=== PATIENT | male | born 1990 | race Caucasian/White ===

== ENCOUNTER 2019-12-31 14:49 | Emergency (ER) | payer BC ==
[~2019-12-31] VITALS: Ht 182 cm; Wt 81.0 kg
[~2019-12-31 14:49] MED LIST: HYDR25CA PO; ONDA8TAB13 PO
--- NOTE | 2019-12-31 16:14 | ED Abdominal Pain ---
General Chief Complaint: Abdominal/GI Problems Stated Complaint: GI PROBLEMS Nursing Triage Note: PT ARRIVES TO ER WITH C/O SEVERE ABDOMINAL PAIN EVER SINCE BEING DIAGNOSED WITH COVID 19 ON NOVEMBER 22 2019. PT HAS BEEN VOMITTING ALMOST DAILY SINCE Sepsis Screen: No Definite Risk Source of Information: Patient Exam Limitations: No Limitations History of Present Illness Date Seen by Provider: Dec 31, 2019 Time Seen by Provider: 16:11 Initial Comments To ER with c/o RLQ pain and dysuria since having COVID in November 21. He never had respiratory symptoms, only had GI distress. Timing/Duration: Other (one month) Severity/Quality: Moderate Location: RLQ, Generalized Abdomen Radiation: No Radiation Activities at Onset: None Associated Symptoms: Denies Symptoms Allergies and Home Medications Allergies Coded Allergies: No Known Drug Allergies (Unverified , 11/09/14) Home Medications Hydroxyzine Pamoate 25 Mg Capsule, 25 MG PO Q6H PRN for ANXIETY Prescribed by: RADHA SEWELL on 11/09/142147 Ondansetron 8 Mg Tab.rapdis, 8 MG PO Q6H PRN for NAUSEA/VOMITING Prescribed by: RADHA SEWELL on 11/09/142147 Patient Home Medication List Home Medication List Reviewed: Yes Review of Systems Review of Systems Constitutional: see HPI EENTM: No Symptoms Reported Respiratory: No Symptoms Reported Cardiovascular: No Symptoms Reported Gastrointestinal: See HPI, Abdominal Pain, Nausea Genitourinary: No Symptoms Reported Musculoskeletal: no symptoms reported Skin: no symptoms reported Psychiatric/Neurological: No Symptoms Reported Endocrine: No Symptoms Reported Hematologic/Lymphatic: No Symptoms Reported Past Tznqtcy-Asrjgc-Daycfi Hx Patient Social History Recent Foreign Travel: No Contact w/Someone Who Travel: No Recent Infectious Disease Expo: No Past Medical History Tonsillectomy Asthma Reproductive Disorders: No Sexually Transmitted Disease: No Anxiety Family Medical History No Pertinent Family Hx Physical Exam Vital Signs Vital Signs - First Documented 12/31/19 15:48 Temp 36.4 Pulse 90 Resp 17 B/P (MAP) 151/122 (132) Pulse Ox 100 O2 Delivery Room Air Capillary Refill : Less Than 3 Seconds Height/Weight/BMI Height: 5'11" Weight: 165lbs. oz. 74.039856jp; 24.00 BMI Method:Stated General Appearance: WD/WN, no apparent distress Respiratory: normal breath sounds, no respiratory distress, no accessory muscle use Cardiovascular: regular rate, rhythm, no murmur Gastrointestinal: normal bowel sounds, soft, tenderness Extremities: normal range of motion, non-tender Neurologic/Psychiatric: alert, normal mood/affect, oriented x 3 Skin: normal color, warm/dry, other (Track little of the antecubital fossa and upper arms bilaterally) Progress/Results/Core Measures Results/Orders Lab Results Laboratory Tests Test 12/31/19 16:05 12/31/19 16:35 12/31/19 17:17 Range/Units White Blood Count 13.2 H 4.3-11.0 10^3/uL Red Blood Count 4.43 4.30-5.52 10^6/uL Hemoglobin 14.7 13.3-17.7 g/dL Hematocrit 42 40-54 % Mean Corpuscular Volume 95 80-99 fL Mean Corpuscular Hemoglobin 33 25-34 pg Mean Corpuscular Hemoglobin Concent 35 32-36 g/dL Red Cell Distribution Width 12.0 10.0-14.5 % Platelet Count 563 H 130-400 10^3/uL Mean Platelet Volume 9.3 9.0-12.2 fL Immature Granulocyte % (Auto) 1 % Neutrophils (%) (Auto) 68 42-75 % Lymphocytes (%) (Auto) 19 12-44 % Monocytes (%) (Auto) 10 0-12 % Eosinophils (%) (Auto) 1 0-10 % Basophils (%) (Auto) 1 0-10 % Neutrophils # (Auto) 9.0 H 1.8-7.8 10^3/uL Lymphocytes # (Auto) 2.6 1.0-4.0 10^3/uL Monocytes # (Auto) 1.3 H 0.0-1.0 10^3/uL Eosinophils # (Auto) 0.2 0.0-0.3 10^3/uL Basophils # (Auto) 0.1 0.0-0.1 10^3/uL Immature Granulocyte # (Auto) 0.1 0.0-0.1 10^3/uL Sodium Level 136 135-145 MMOL/L Potassium Level 3.0 L 3.6-5.0 MMOL/L Chloride Level 100 98-107 MMOL/L Carbon Dioxide Level 23 21-32 MMOL/L Anion Gap 13 5-14 MMOL/L Blood Urea Nitrogen 5 L 7-18 MG/DL Creatinine 0.71 0.60-1.30 MG/DL Estimat Glomerular Filtration Rate > 60 BUN/Creatinine Ratio 7 Glucose Level 89 70-105 MG/DL Calcium Level 8.5 8.5-10.1 MG/DL Corrected Calcium 8.7 8.5-10.1 MG/DL Total Bilirubin 0.5 0.1-1.0 MG/DL Aspartate Amino Transf (AST/SGOT) 28 5-34 U/L Alanine Aminotransferase (ALT/SGPT) 27 0-55 U/L Alkaline Phosphatase 74 40-136 U/L Total Protein 6.7 6.4-8.2 GM/DL Albumin 3.7 3.2-4.5 GM/DL Lipase 191 H 8-78 U/L Urine Color YELLOW Urine Clarity CLEAR Urine pH 7.0 5-9 Urine Specific Fosters 1.020 1.016-1.022 Urine Protein 1+ H NEGATIVE Urine Glucose (UA) NEGATIVE NEGATIVE Urine Ketones TRACE H NEGATIVE Urine Nitrite NEGATIVE NEGATIVE Urine Bilirubin 1+ H NEGATIVE Urine Urobilinogen 1.0 < = 1.0 MG/DL Urine Leukocyte Esterase NEGATIVE NEGATIVE Urine RBC (Auto) NEGATIVE NEGATIVE Urine RBC NONE /HPF Urine WBC 0-2 /HPF Urine Crystals NONE /LPF Urine Bacteria TRACE /HPF Urine Casts NONE /LPF Urine Mucus LARGE H /LPF Urine Culture Indicated NO Urine Opiates Screen POSITIVE H NEGATIVE Urine Oxycodone Screen NEGATIVE NEGATIVE Urine Methadone Screen NEGATIVE NEGATIVE Urine Propoxyphene Screen NEGATIVE NEGATIVE Urine Barbiturates Screen NEGATIVE NEGATIVE Ur Tricyclic Antidepressants Screen NEGATIVE NEGATIVE Urine Phencyclidine Screen NEGATIVE NEGATIVE Urine Amphetamines Screen NEGATIVE NEGATIVE Urine Methamphetamines Screen NEGATIVE NEGATIVE Urine Benzodiazepines Screen NEGATIVE NEGATIVE Urine Cocaine Screen NEGATIVE NEGATIVE Urine Cannabinoids Screen POSITIVE H NEGATIVE Coronavirus 2019 (BHANU) Negative Negative My Orders Orders - JON ALLEN BRANCH SERVICE SPECIALIST Cbc With Automated Diff (12/31/19 15:59) Comprehensive Metabolic Panel (12/31/19 15:59) Lipase (12/31/19 15:59) Ua Culture If Indicated (12/31/19 15:59) Drug Screen Stat (Urine) (12/31/19 15:59) Ed Iv/Invasive Line Start (12/31/19 15:59) Ketorolac Injection (Toradol Injection) (12/31/19 16:15) Ns Iv 1000 Ml (Sodium Chloride 0.9%) (12/31/19 16:15) Ondansetron Injection (Zofran Injectio (12/31/19 16:15) Iohexol Injection (Omnipaque 350 Mg/Ml 1 (12/31/19 16:30) Received Contrast (Hold Metformin- Contr (12/31/19 16:30) Ns (Ivpb) (Sodium Chloride 0.9% Ivpb Bag (12/31/19 16:30) Ct Abd/Pelvis Wo(Kidney Stone) (12/31/19 16:25) Fentanyl Injection (Sublimaze Injection (12/31/19 17:00) Covid 19 Inhouse Test (12/31/19 17:14) Ondansetron Injection (Zofran Injectio (12/31/19 18:00) Medications Given in ED Current Medications Medications Dose Ordered Sig/Stoney Route Start Time Stop Time Status Last Admin Dose Admin Fentanyl Citrate 50 mcg ONCE ONCE IVP 12/31/19 17:00 12/31/19 17:01 DC 12/31/19 17:16 50 MCG Ketorolac Tromethamine 15 mg ONCE ONCE IVP 12/31/19 16:15 12/31/19 16:16 DC 12/31/19 16:32 15 MG Ondansetron HCl 4 mg ONCE ONCE IVP 12/31/19 16:15 12/31/19 16:16 DC 12/31/19 16:32 4 MG Vital Signs/I&O 12/31/19 15:48 Temp 36.4 Pulse 90 Resp 17 B/P (MAP) 151/122 (132) Pulse Ox 100 O2 Delivery Room Air Blood Pressure Mean: 132 Diagnostic Imaging Diagonstic Imaging: CT Comments NAME: DIONNE NORMAN Destiney [facility] REC#: [id number] PT STATUS: REG ER : 1990 PHYSICIAN: JON ALLEN BRANCH SERVICE SPECIALIST ADMIT DATE: 12/31/19/ER Draft Date of Exam:12/31/19 CT ABD/PELVIS WO(KIDNEY STONE) INDICATION: Right lower quadrant pain with nausea and vomiting. TECHNIQUE: Multiple contiguous axial images were obtained through the abdomen and pelvis without the use of intravenous contrast. Auto Exposure Controls were utilized during the CT exam to meet ALARA standards for radiation dose reduction. COMPARISON: There is no prior CT of the abdomen and pelvis for comparison. FINDINGS: The visualized portions of the lung bases appear clear. There were no pleural fluid collections. There is no free intraperitoneal air. The liver shows low-density change compatible with fatty infiltration. The gallbladder appears unremarkable. There is a normal appearance of the spleen The pancreas is abnormal with a large apparent fluid collection in the pancreatic tail, which may be a large pseudocyst. This collection measured about 12.8 x 10.9 cm. There is an additional fluid collection in the left iliacus muscle and left side of the retroperitoneum. The left-sided retroperitoneal collection measured about 7.2 x 5.6 cm in the axial plane. There is no pelvic mass or adenopathy. The appendix appears normal. There is no sign of bowel obstruction. IMPRESSION: Large fluid density in the region of the pancreatic tail suspicious for a large pseudocyst. There is some peripancreatic fat stranding. A follow-up CT with IV contrast would be helpful to further characterize this abnormality. There is an additional fluid collection in the left side of the retroperitoneum extending into the left iliacus muscle. Dictated on workstation # [id number] Dict: 12/31/19 1637 Trans: 12/31/19 1644 [facility] [id number] Interpreted by: JACKSON MILLER MD Electronically signed by: Departure Communication (Admissions) 1701-after further discussion he reports that he was a daily drinker prior to November 21 when he came down with Covid at which point he stopped alcohol use along with IV drug use. I would suspect this was the cause of his pancreatitis/pseudocyst. He is quite tender diffusely on abdominal palpation though his lipase is minimally elevated.Spoke with Dr Kwon from surgery here, recommends transfer to facility with GI and IR services for possible endoscopic US drainage or IR drainage. 1720-Spoke with resident for Dr Pabon at [facility], accepts pt in transfer. Pt agrees to go. Impression Primary Impression: Pancreatic pseudocyst Additional Impression: Nausea & vomiting Qualified Codes: R11.2 - Nausea with vomiting, unspecified Disposition: HOME, SELF-CARE Condition: Stable Transfer Transfer Reason: Exceeds level of care Time Spoke to Accepting Phy: 17:05 Departure-Patient Inst. Referrals: NO,LOCAL PHYSICIAN (PCP/Family) Primary Care Physician JON ALLEN BRANCH SERVICE SPECIALIST Dec 31, 2019 16:14
[2019-12-31] MEDS ORDERED: KETOROLAC 30 MG/ML VIAL IVP ONE (16:15)
[2019-12-31] MEDS ORDERED: ONDANSETRON 4 MG/2 ML (SDV) Z0FRAN IVP ONE ×2 (16:15→18:00)
[2019-12-31] MEDS ORDERED: NS IV 1000 ML 1,000 ML IV SCH (16:15)
[2019-12-31 16:21] LABS: BASOPHILS # (AUTO) 0.1 10^3/uL (0.0-0.1); BASOPHILS % (AUTO) 1 % (0-10); EOSINOPHILS # (AUTO) 0.2 10^3/uL (0.0-0.3); EOSINOPHILS % (AUTO) 1 % (0-10); HEMATOCRIT 42 % (40-54); HEMOGLOBIN 14.7 g/dL (13.3-17.7); LYMPHOCYTES # (AUTO) 2.6 10^3/uL (1.0-4.0); LYMPHOCYTES % (AUTO) 19 % (12-44); MEAN CORPUSCULAR HEMOGLOBIN 33 pg (25-34); MEAN CORPUSCULAR HGB CONC 35 g/dL (32-36); MEAN CORPUSCULAR VOLUME 95 fL (80-99); MEAN PLATELET VOLUME 9.3 fL (9.0-12.2); MONOCYTES # (AUTO) 1.3 10^3/uL (0.0-1.0); MONOCYTES % (AUTO) 10 % (0-12); NEUTROPHILS % (AUTO) 68 % (42-75); PLATELET COUNT 563 10^3/uL (130-400); WHITE BLOOD COUNT 13.2 10^3/uL (4.3-11.0)
[2019-12-31 16:26] LABS: ALBUMIN 3.7 GM/DL (3.2-4.5); CHLORIDE 100 MMOL/L (98-107); SODIUM 136 MMOL/L (135-145)
[2019-12-31 16:27] LABS: CALCIUM 8.5 MG/DL (8.5-10.1)
[2019-12-31 16:28] LABS: GLUCOSE 89 MG/DL (70-105); TOTAL PROTEIN 6.7 GM/DL (6.4-8.2)
[2019-12-31 16:29] LABS: CARBON DIOXIDE 23 MMOL/L (21-32)
[2019-12-31 16:30] LABS: BILIRUBIN,TOTAL 0.5 MG/DL (0.1-1.0)
[2019-12-31] MEDS ORDERED: NS 100 ML (IVPB) BAG IV ONE (16:30)
[2019-12-31] MEDS ORDERED: IOHEXOL 350 MG/ML 100 ML (OMNIPAQUE 350) VIAL IV ONE (16:30)
[2019-12-31] MEDS ORDERED: HOLD METFORMIN - RECEIVED CONTRAST 20 ML VIAL IV SCH (16:30)
[2019-12-31 16:32] LABS: ALKALINE PHOSPHATASE 74 U/L (40-136); CREATININE SERUM 0.71 MG/DL (0.60-1.30); GFR ESTIMATED > 60
[2019-12-31 16:33] LABS: BUN/CREATININE RATIO 7
[2019-12-31 16:35] LABS: ALANINE AMINOTRANSFERASE 27 U/L (0-55); LIPASE 191 U/L (8-78)
--- NOTE | 2019-12-31 16:45 | Diagnostic Imaging Report ---
INDICATION: Right lower quadrant pain with nausea and vomiting. TECHNIQUE: Multiple contiguous axial images were obtained through the abdomen and pelvis without the use of intravenous contrast. Auto Exposure Controls were utilized during the CT exam to meet ALARA standards for radiation dose reduction. COMPARISON: There is no prior CT of the abdomen and pelvis for comparison. FINDINGS: The visualized portions of the lung bases appear clear. There were no pleural fluid collections. There is no free intraperitoneal air. The liver shows low-density change compatible with fatty infiltration. The gallbladder appears unremarkable. There is a normal appearance of the spleen The pancreas is abnormal with a large apparent fluid collection in the pancreatic tail, which may be a large pseudocyst. This collection measured about 12.8 x 10.9 cm. There is an additional fluid collection in the left iliacus muscle and left side of the retroperitoneum. The left-sided retroperitoneal collection measured about 7.2 x 5.6 cm in the axial plane. There is no pelvic mass or adenopathy. The appendix appears normal. There is no sign of bowel obstruction. IMPRESSION: Large fluid density in the region of the pancreatic tail suspicious for a large pseudocyst. There is some peripancreatic fat stranding. A follow-up CT with IV contrast would be helpful to further characterize this abnormality. There is an additional fluid collection in the left side of the retroperitoneum extending into the left iliacus muscle. Dictated by: Dictated on workstation # [id number]
[2019-12-31 16:46] LABS: CLARITY,URINE CLEAR; COLOR,URINE YELLOW; GLUCOSE, URINE (UA) NEGATIVE (NEGATIVE); KETONES,URINE TRACE (NEGATIVE); LEUKOCYTE ESTERASE ,URINE NEGATIVE (NEGATIVE); NITRITE,URINE NEGATIVE (NEGATIVE); PROTEIN,URINE 1+ (NEGATIVE)
[2019-12-31] MEDS ORDERED: fentaNYL INJECTION 100 MCG/2 ML AMP IVP ONE ×3 (17:00→19:00)
[2019-12-31 17:06] LABS: BACTERIA,URINE TRACE /HPF; WBC,URINE 0-2 /HPF
[2019-12-31 17:07] LABS: BILIRUBIN,URINE 1+ (NEGATIVE)
[2019-12-31 17:09] LABS: AMPHETAMINE SCREEN, URINE NEGATIVE (NEGATIVE); BARBITURATE SCREEN URINE NEGATIVE (NEGATIVE); BENZODIAZEPINES SCREEN URINE NEGATIVE (NEGATIVE); CANNABINOID SCREEN, URINE POSITIVE (NEGATIVE); COCAINE SCREEN URINE NEGATIVE (NEGATIVE); METHADONE STAT NEGATIVE (NEGATIVE); METHAMPHETAMINE SCREEN URINE S NEGATIVE (NEGATIVE); OPIATE SCREEN URINE POSITIVE (NEGATIVE); OXYCODONE STAT NEGATIVE (NEGATIVE); PROPOXYPHENE STAT NEGATIVE (NEGATIVE); TRICYCLIC ANTIDEPRESSANTS SCRE NEGATIVE (NEGATIVE)
[2019-12-31 21:05] VITALS: BP 149/100
== END 2019-12-31 21:05 | disposition home or self-care (01) ==
LOC: EDUNIT# 14:49 → ER 14:51
DX: K86.3 Pseudocyst of pancreas (principal); R11.2 Nausea with vomiting, unspecified; F41.9 Anxiety disorder, unspecified; Z20.828 Contact with and (suspected) exposure to other viral communicable diseases
CPT/HCPCS: 74176; 80053; 80306; 81000; 83690; 85025; 99284; U0002; 36415; 87635

== ENCOUNTER 2020-01-05 12:53 | Emergency (ER) | payer BC ==
[~2020-01-05] VITALS: Ht 182 cm; Wt 86.0 kg
[2020-01-05 13:21] LABS: BASOPHILS # (AUTO) 0.1 10^3/uL (0.0-0.1); BASOPHILS % (AUTO) 1 % (0-10); EOSINOPHILS # (AUTO) 0.3 10^3/uL (0.0-0.3); EOSINOPHILS % (AUTO) 2 % (0-10); HEMATOCRIT 40 % (40-54); HEMOGLOBIN 13.7 g/dL (13.3-17.7); LYMPHOCYTES # (AUTO) 1.9 10^3/uL (1.0-4.0); LYMPHOCYTES % (AUTO) 18 % (12-44); MEAN CORPUSCULAR HEMOGLOBIN 33 pg (25-34); MEAN CORPUSCULAR HGB CONC 34 g/dL (32-36); MEAN CORPUSCULAR VOLUME 98 fL (80-99); MEAN PLATELET VOLUME 9.8 fL (9.0-12.2); MONOCYTES # (AUTO) 1.1 10^3/uL (0.0-1.0); MONOCYTES % (AUTO) 10 % (0-12); NEUTROPHILS # (AUTO) 7.4 10^3/uL (1.8-7.8); NEUTROPHILS % (AUTO) 69 % (42-75); PLATELET COUNT 312 10^3/uL (130-400); WHITE BLOOD COUNT 10.8 10^3/uL (4.3-11.0)
[2020-01-05 13:32] LABS: ALBUMIN 3.5 GM/DL (3.2-4.5); CHLORIDE 103 MMOL/L (98-107); POTASSIUM 3.7 MMOL/L (3.6-5.0); SODIUM 139 MMOL/L (135-145)
[2020-01-05 13:33] LABS: AMYLASE 121 U/L (25-125); CALCIUM 8.7 MG/DL (8.5-10.1)
[2020-01-05 13:34] LABS: GLUCOSE 89 MG/DL (70-105); TOTAL PROTEIN 6.6 GM/DL (6.4-8.2)
[2020-01-05 13:35] LABS: CARBON DIOXIDE 22 MMOL/L (21-32)
[2020-01-05 13:36] LABS: BILIRUBIN,TOTAL 0.4 MG/DL (0.1-1.0)
[2020-01-05] MEDS ORDERED: LACTATED RINGERS 1,000 ML IV ONE (13:36)
[2020-01-05 13:38] LABS: ALKALINE PHOSPHATASE 81 U/L (40-136); CREATININE SERUM 0.79 MG/DL (0.60-1.30); GFR ESTIMATED > 60
[2020-01-05 13:39] LABS: BUN/CREATININE RATIO 5
--- NOTE | 2020-01-05 13:39 | ED Abdominal Pain ---
General Chief Complaint: Abdominal/GI Problems Stated Complaint: DX W/ PANCREATITIS/SEVERE ABD PAIN Nursing Triage Note: PT TO ED W/ C/O ABD PAIN ONSET X "SEVERAL DAYS". PT REPORTS WAS SEEN IN THIS ED ET TRANSFERED TO [facility] IN [place] FOR PANCREATITIS ET ASCITIS. STATES HE HAD "FLUID DRAINED FROM HIS ABD ET WAS SENT HOME". Sepsis Screen: No Definite Risk History of Present Illness Date Seen by Provider: Jan 05, 2020 Time Seen by Provider: 13:30 Initial Comments This is a healthy-appearing 29-year-old male who presents to the ER with complaints of diffuse lower abdominal pain. States he was transferred from this facility on 12/30 to [facility] for a pancreatic pseudocyst which he had drained on the at [facility]. States he felt fine on and Monday after the procedure. However, yesterday he started having dull pain in his lower abdomen that continued to increase throughout the day was is significantly worse this morning. Denies nausea, vomiting. Denies alcohol use. Does admit to smoking marijuana yesterday. Denies fevers, chills, cough, shortness of breath COVID exposure. Allergies and Home Medications Allergies Coded Allergies: No Known Drug Allergies (Unverified , 11/09/14) Home Medications Hydroxyzine Pamoate 25 Mg Capsule, 25 MG PO Q6H PRN for ANXIETY Prescribed by: RADHA SEWELL on 11/09/142147 Ondansetron 8 Mg Tab.rapdis, 8 MG PO Q6H PRN for NAUSEA/VOMITING Prescribed by: RADHA SEWELL on 11/09/142147 Patient Home Medication List Home Medication List Reviewed: Yes Review of Systems Review of Systems Constitutional: see HPI EENTM: No Symptoms Reported Respiratory: No Symptoms Reported Cardiovascular: No Symptoms Reported Gastrointestinal: See HPI Genitourinary: No Symptoms Reported Musculoskeletal: no symptoms reported Skin: no symptoms reported Psychiatric/Neurological: No Symptoms Reported Endocrine: No Symptoms Reported Hematologic/Lymphatic: No Symptoms Reported Past Ahhshlv-Ltxfhv-Thwwnr Hx Patient Social History Alcohol Use: Occasionally Uses Recreational Drug Use: Yes Drug of Choice: MARIJUANA Smoking Status: Current Everyday Smoker Type Used: Cigarettes 2nd Hand Smoke Exposure: Yes Recent Foreign Travel: No Contact w/Someone Who Travel: No Recent Infectious Disease Expo: No Recent Hopitalizations: No Physical Abuse: No Sexual Abuse: No Mistreated: No Fear: No Immunizations Up To Date Tetanus Booster (TDap): Unknown PED Vaccines UTD: Yes Date of Influenza Vaccine: Nov 14, 2019 Seasonal Allergies Seasonal Allergies: No Past Medical History Surgeries: Yes Tonsillectomy Respiratory: Yes Asthma Cardiac: No Neurological: No Reproductive Disorders: No Sexually Transmitted Disease: No Gastrointestinal: No Musculoskeletal: No Endocrine: No Cancer: No Psychosocial: Yes Anxiety Integumentary: No Blood Disorders: No Family Medical History No Pertinent Family Hx Physical Exam Vital Signs Vital Signs - First Documented 01/05/20 13:04 Temp 37.7 Pulse 109 Resp 20 B/P (MAP) 128/91 (103) Pulse Ox 97 O2 Delivery Room Air Capillary Refill : Less Than 3 Seconds Height/Weight/BMI Height: 5'11" Weight: 165lbs. oz. 74.979801my; 25.00 BMI Method:Stated General Appearance: WD/WN, no apparent distress HEENT: PERRL/EOMI, normal ENT inspection, pharynx normal Neck: full range of motion, supple, normal inspection Respiratory: chest non-tender, lungs clear, normal breath sounds, no respiratory distress Cardiovascular: regular rate, rhythm, no murmur Peripheral Pulses: 2+ Radial Pulses (R), 2+ Radial Pulses (L) Gastrointestinal: normal bowel sounds, soft, no organomegaly, tenderness (diffuse lower abdominal tenderness.), other Extremities: normal range of motion, non-tender, normal inspection Neurologic/Psychiatric: no motor/sensory deficits, alert, normal mood/affect, oriented x 3 Skin: normal color, warm/dry, other (small half centimeter percutaneous incision noted on left upper quadrant, no erythema or swelling.) Progress/Results/Core Measures Results/Orders Lab Results Laboratory Tests Test 01/05/20 13:15 Range/Units White Blood Count 10.8 4.3-11.0 10^3/uL Red Blood Count 4.13 L 4.30-5.52 10^6/uL Hemoglobin 13.7 13.3-17.7 g/dL Hematocrit 40 40-54 % Mean Corpuscular Volume 98 80-99 fL Mean Corpuscular Hemoglobin 33 25-34 pg Mean Corpuscular Hemoglobin Concent 34 32-36 g/dL Red Cell Distribution Width 12.6 10.0-14.5 % Platelet Count 312 130-400 10^3/uL Mean Platelet Volume 9.8 9.0-12.2 fL Immature Granulocyte % (Auto) 0 % Neutrophils (%) (Auto) 69 42-75 % Lymphocytes (%) (Auto) 18 12-44 % Monocytes (%) (Auto) 10 0-12 % Eosinophils (%) (Auto) 2 0-10 % Basophils (%) (Auto) 1 0-10 % Neutrophils # (Auto) 7.4 1.8-7.8 10^3/uL Lymphocytes # (Auto) 1.9 1.0-4.0 10^3/uL Monocytes # (Auto) 1.1 H 0.0-1.0 10^3/uL Eosinophils # (Auto) 0.3 0.0-0.3 10^3/uL Basophils # (Auto) 0.1 0.0-0.1 10^3/uL Immature Granulocyte # (Auto) 0.0 0.0-0.1 10^3/uL Sodium Level 139 135-145 MMOL/L Potassium Level 3.7 3.6-5.0 MMOL/L Chloride Level 103 98-107 MMOL/L Carbon Dioxide Level 22 21-32 MMOL/L Anion Gap 14 5-14 MMOL/L Blood Urea Nitrogen 4 L 7-18 MG/DL Creatinine 0.79 0.60-1.30 MG/DL Estimat Glomerular Filtration Rate > 60 BUN/Creatinine Ratio 5 Glucose Level 89 70-105 MG/DL Calcium Level 8.7 8.5-10.1 MG/DL Corrected Calcium 9.1 8.5-10.1 MG/DL Total Bilirubin 0.4 0.1-1.0 MG/DL Aspartate Amino Transf (AST/SGOT) 20 5-34 U/L Alanine Aminotransferase (ALT/SGPT) 16 0-55 U/L Alkaline Phosphatase 81 40-136 U/L Total Protein 6.6 6.4-8.2 GM/DL Albumin 3.5 3.2-4.5 GM/DL Amylase Level 121 25-125 U/L Lipase 229 H 8-78 U/L My Orders Orders - SWEETIE SARKAR [employer] PARTS INTERPRETER Comprehensive Metabolic Panel (01/05/20 13:00) Lipase (01/05/20 13:00) Amylase (01/05/20 13:00) Cbc With Automated Diff (01/05/20 13:00) Ed Iv/Invasive Line Start (01/05/20 13:00) Lactated Ringers (Lr 1000 Ml Iv Solution (01/05/20 13:36) Fentanyl Injection (Sublimaze Injection (01/05/20 13:45) Ct Abdomen/Pelvis W (01/05/20 13:59) Iohexol Injection (Omnipaque 350 Mg/Ml 1 (01/05/20 14:15) Received Contrast (Hold Metformin- Contr (01/05/20 14:15) Ns (Ivpb) (Sodium Chloride 0.9% Ivpb Bag (01/05/20 14:15) Hydromorphone Injection (Dilaudid Inject (01/05/20 16:00) Hydromorphone Injection (Dilaudid Inject (01/05/20 18:45) Hydromorphone Injection (Dilaudid Inject (01/05/20 18:30) Medications Given in ED Current Medications Medications Dose Ordered Sig/Stoney Route Start Time Stop Time Status Last Admin Dose Admin Fentanyl Citrate 25 mcg ONCE ONCE IVP 01/05/20 13:45 01/05/20 13:46 DC 01/05/20 13:55 25 MCG Hydromorphone HCl 0.25 mg ONCE ONCE IVP 01/05/20 16:00 01/05/20 16:01 DC 01/05/20 16:24 0.25 MG Hydromorphone HCl 0.5 mg ONCE ONCE IV 01/05/20 18:45 01/05/20 18:46 DC 01/05/20 18:34 0.5 MG Iohexol 100 ml ONCE ONCE IV 01/05/20 14:15 01/05/20 14:16 DC 01/05/20 14:22 100 ML Lactated Ringer's 1,000 ml @ 0 mls/hr Q0M ONCE IV 01/05/20 13:36 01/05/20 13:38 DC 01/05/20 13:55 0 MLS/HR Sodium Chloride 100 ml ONCE ONCE IV 01/05/20 14:15 01/05/20 14:16 DC 01/05/20 14:23 80 ML Vital Signs/I&O 01/05/20 01/05/20 13:04 18:27 Temp 37.7 Pulse 109 86 Resp 20 16 B/P (MAP) 128/91 (103) 137/96 Pulse Ox 97 98 O2 Delivery Room Air Room Air Blood Pressure Mean: 103 Progress Progress Note : Time: 14:00 Progress Note Discussed case with Dr. Adams, recommended repeating CT as his lipase is elevated today higher than his lipase on 12/31/19 when he was initially diagnosed with pancreatitis and pseudocyst. If another cyst has developed, he recommended calling [facility] for follow-up. Repeat CT showed 12.3 x 10.4 cm pink-red pseudocyst. Called [facility] and talked to Dr. Hernandez who is tactical deception plans officer for Dr. Portillo, recommended patient be admitted for pain control and fluids and will notify Dr. Portillo patient readmission tomorrow. 1612: Discussed case with Elly Mahmood APRN, at [facility], accepted patient transfer at this time. Patient received a total of 1 L LR, fentanyl 25 mcg IVP, Dilaudid 0.25 mg IVP. He is resting comfortably waiting EMS transfer at this time. Diagnostic Imaging Diagonstic Imaging: CT Plain Films/CT/US/NM/MRI: abdomen Comments NAME: DIONNE NORMAN MED REC#: [id number] PT STATUS: REG ER : 1990 PHYSICIAN: SWEETIE SARKAR APRN ADMIT DATE: 01/05/20/ER Signed Date of Exam:01/05/20 CT ABDOMEN/PELVIS W EXAMINATION: CT Abdomen and Pelvis with intravenous contrast. TECHNIQUE: Multiple contiguous axial images were obtained through the abdomen and pelvis after the uneventful administration of intravenous contrast. All CT scans use one or more of the following dose optimizing techniques: automated exposure control, MA and/or KvP adjustment based on patient size and exam type or iterative reconstruction. HISTORY: Pancreatitis with pseudocyst. Increase in abdominal pain. COMPARISON: 12/31/2019. FINDINGS: The heart is unremarkable. The included lung bases are clear. Relatively stable multilocular fluid collection adjacent to the distal body and tail of the pancreas, with the largest component measuring 12.3 x 10.4 cm, consistent with pancreatic pseudocyst. The splenic vein demonstrates no evidence of thrombus. No pseudoaneurysm is seen in the splenic artery. The peripancreatic inflammatory changes are not significantly changed. There is normal enhancement within the pancreatic parenchyma. The liver, spleen, adrenal glands and kidneys have a normal appearance. There is no pathologically enlarged mesenteric or retroperitoneal adenopathy. The bowel loops are nondilated. There is no free fluid or free air. No acute osseous abnormalities. Ureters and bladder are grossly normal. IMPRESSION: 1. Stable appearance of the multilocular pancreatic pseudocyst. Stable appearance of peripancreatic inflammatory changes. No evidence of pancreatic necrosis. Recommend continued follow-up as indicated. 2. No evidence of bowel obstruction. No free fluid or free air in the abdomen and pelvis. Dictated by: Dictated on workstation # [id number] Dict: 01/05/20 1436 Trans: 01/05/20 1456 [facility] [id number] Interpreted by: SALINA MARCIAL DO Electronically signed by: SALINA MARCIAL DO 01/05/20 1456 Departure Impression Primary Impression: Pancreatic pseudocyst Disposition: 02 XFER SHT-TRM HOSP Condition: Stable Transfer Transfer Reason: Exceeds level of care Time Spoke to Accepting Phy: 16:12 Transfer Progress Notes Discussed case with Jennie Mahmood APRN at [facility], she is agreeable for patient transfer. Transfer Time: 17:44 Transfer Facility: [facility] Method of Transfer: EMS Departure-Patient Inst. Referrals: NO,LOCAL PHYSICIAN (PCP/Family) Primary Care Physician SWEETIE SARKAR APRN Jan 05, 2020 13:39
[2020-01-05 13:41] LABS: ALANINE AMINOTRANSFERASE 16 U/L (0-55); LIPASE 229 U/L (8-78)
[2020-01-05] MEDS ORDERED: fentaNYL INJECTION 100 MCG/2 ML AMP IVP ONE (13:45)
[2020-01-05] MEDS ORDERED: NS 100 ML (IVPB) BAG IV ONE (14:15)
[2020-01-05] MEDS ORDERED: HOLD METFORMIN - RECEIVED CONTRAST 20 ML VIAL IV SCH (14:15)
[2020-01-05] MEDS ORDERED: IOHEXOL 350 MG/ML 100 ML (OMNIPAQUE 350) VIAL IV ONE (14:15)
--- NOTE | 2020-01-05 14:46 | Diagnostic Imaging Report ---
EXAMINATION: CT Abdomen and Pelvis with intravenous contrast. TECHNIQUE: Multiple contiguous axial images were obtained through the abdomen and pelvis after the uneventful administration of intravenous contrast. All CT scans use one or more of the following dose optimizing techniques: automated exposure control, MA and/or KvP adjustment based on patient size and exam type or iterative reconstruction. HISTORY: Pancreatitis with pseudocyst. Increase in abdominal pain. COMPARISON: 12/31/2019. FINDINGS: The heart is unremarkable. The included lung bases are clear. Relatively stable multilocular fluid collection adjacent to the distal body and tail of the pancreas, with the largest component measuring 12.3 x 10.4 cm, consistent with pancreatic pseudocyst. The splenic vein demonstrates no evidence of thrombus. No pseudoaneurysm is seen in the splenic artery. The peripancreatic inflammatory changes are not significantly changed. There is normal enhancement within the pancreatic parenchyma. The liver, spleen, adrenal glands and kidneys have a normal appearance. There is no pathologically enlarged mesenteric or retroperitoneal adenopathy. The bowel loops are nondilated. There is no free fluid or free air. No acute osseous abnormalities. Ureters and bladder are grossly normal. IMPRESSION: 1. Stable appearance of the multilocular pancreatic pseudocyst. Stable appearance of peripancreatic inflammatory changes. No evidence of pancreatic necrosis. Recommend continued follow-up as indicated. 2. No evidence of bowel obstruction. No free fluid or free air in the abdomen and pelvis. Dictated by: Dictated on workstation # [id number]
--- NOTE | 2020-01-05 15:26 | NUR ---
PT RESTING QUIETLY, FLUIDS INFUSING W/O DIFFICULTY. NO OTHER C/O AT THIS TIME.
[2020-01-05] MEDS ORDERED: HYDROmorphone 2 MG/ML VIAL (DILAUDID) IVP ONE (16:00)
--- NOTE | 2020-01-05 16:44 | NUR ---
PLANS TO TRANSFER PT BACK TO [facility] [place] IN [place]
--- NOTE | 2020-01-05 17:30 | NUR ---
PER WENDI, PT HAS BEEN ACCEPTED ET WILL GO TO CD03
--- NOTE | 2020-01-05 17:34 | NUR ---
DISPATCH NOTIFIED OF TRANSFER AT THIS TIME.
--- NOTE | 2020-01-05 17:50 | NUR ---
REPORT TO KATHERINE MAC AT [facility] AT THIS TIME.
[2020-01-05 18:27] VITALS: BP 137/96
--- NOTE | 2020-01-05 18:27 | NUR ---
[facility] HERE FOR PT
[2020-01-05] MEDS ORDERED: HYDROmorphone 2 MG/ML VIAL (DILAUDID) ONE (18:30)
[2020-01-05] MEDS ORDERED: HYDROmorphone 2 MG/ML VIAL (DILAUDID) IV ONE (18:45)
== END 2020-01-05 18:27 | disposition short-term general hospital (02) ==
LOC: EDUNIT# 12:53 → ER 12:54
DX: K86.3 Pseudocyst of pancreas (principal); F41.9 Anxiety disorder, unspecified; F17.210 Nicotine dependence, cigarettes, uncomplicated
CPT/HCPCS: 36415; 74177; 80053; 82150; 83690; 85025

== ENCOUNTER 2020-04-30 18:59 | Emergency (ER) | payer BC ==
[~2020-04-30] VITALS: Ht 182.8 cm; Wt 72.5 kg
[2020-04-30] MEDS ORDERED: NS 100 ML (IVPB) BAG IV ONE (19:15)
[2020-04-30] MEDS ORDERED: IOHEXOL 350 MG/ML 100 ML (OMNIPAQUE 350) VIAL IV ONE (19:15)
[2020-04-30] MEDS ORDERED: CATHETER FLUSH 10 ML SYR IV PRN (19:15)
[2020-04-30] MEDS ORDERED: HOLD METFORMIN - RECEIVED CONTRAST 20 ML VIAL IV SCH (19:15)
[2020-04-30] MEDS ORDERED: LACTATED RINGERS 1,000 ML IV ONE (19:15)
[2020-04-30] MEDS ORDERED: TETANUS,DIPTH,PERTUSS P/F (BOOSTRIX) 0.5 ML VIAL IM ONE (19:15)
[2020-04-30] MEDS ORDERED: FAMOTIDINE 20MG/2ML IV (PEPCID) IV STA (19:16)
[2020-04-30 19:19] LABS: HEMOGLOBIN 17.8 g/dL (13.3-17.7); MEAN PLATELET VOLUME 9.3 fL (9.0-12.2); WHITE BLOOD COUNT 9.9 10^3/uL (4.3-11.0)
[2020-04-30] MEDS ORDERED: ONDANSETRON 4 MG/2 ML (SDV) Z0FRAN IVP ONE (19:30)
[2020-04-30 19:46] LABS: ALANINE AMINOTRANSFERASE 44 U/L (0-55); ALBUMIN 4.3 GM/DL (3.2-4.5); ALKALINE PHOSPHATASE 79 U/L (40-136); BILIRUBIN,DIRECT 0.1 MG/DL (0.0-0.3); BILIRUBIN,INDIRECT 0.2 MG/DL; BILIRUBIN,TOTAL 0.3 MG/DL (0.1-1.0); BUN/CREATININE RATIO 12; CALCIUM 9.3 MG/DL (8.5-10.1); CARBON DIOXIDE 16 MMOL/L (21-32); CHLORIDE 109 MMOL/L (98-107); CREATININE SERUM 0.76 MG/DL (0.60-1.30); GFR ESTIMATED > 60; GLUCOSE 99 MG/DL (70-105); POTASSIUM 3.8 MMOL/L (3.6-5.0); SODIUM 141 MMOL/L (135-145); TOTAL PROTEIN 7.3 GM/DL (6.4-8.2)
[2020-04-30 20:03] LABS: BILIRUBIN,URINE NEGATIVE (NEGATIVE); CLARITY,URINE CLEAR; COLOR,URINE YELLOW; GLUCOSE, URINE (UA) NEGATIVE (NEGATIVE); KETONES,URINE NEGATIVE (NEGATIVE); LEUKOCYTE ESTERASE ,URINE NEGATIVE (NEGATIVE); NITRITE,URINE NEGATIVE (NEGATIVE); PH,URINE 6.5 (5-9); PROTEIN,URINE NEGATIVE (NEGATIVE)
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
[2020-04-30 20:12] LABS: AMPHETAMINE SCREEN, URINE NEGATIVE (NEGATIVE); BACTERIA,URINE NEGATIVE /HPF; BARBITURATE SCREEN URINE NEGATIVE (NEGATIVE); BENZODIAZEPINES SCREEN URINE POSITIVE (NEGATIVE); CANNABINOID SCREEN, URINE POSITIVE (NEGATIVE); COCAINE SCREEN URINE NEGATIVE (NEGATIVE); METHADONE STAT NEGATIVE (NEGATIVE); METHAMPHETAMINE SCREEN URINE S NEGATIVE (NEGATIVE); OPIATE SCREEN URINE NEGATIVE (NEGATIVE); OXYCODONE STAT NEGATIVE (NEGATIVE); PROPOXYPHENE STAT NEGATIVE (NEGATIVE); SQUAMOUS EPITHELIAL CELL,UR RARE /HPF; TRICYCLIC ANTIDEPRESSANTS SCRE NEGATIVE (NEGATIVE)
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
[2020-04-30 21:45] VITALS: BP 140/89
== END 2020-04-30 21:46 | disposition left against medical advice (07) ==
LOC: EDUNIT# 18:59 → ER 19:01
DX: S01.111A Laceration without foreign body of right eyelid and periocular area, initial encounter (principal); S01.511A Laceration without foreign body of lip, initial encounter; R10.11 Right upper quadrant pain; F10.229 Alcohol dependence with intoxication, unspecified; R93.3 Abnormal findings on diagnostic imaging of other parts of digestive tract; F41.9 Anxiety disorder, unspecified; F17.210 Nicotine dependence, cigarettes, uncomplicated; Z23 Encounter for immunization; Y90.8 Blood alcohol level of 240 mg/100 ml or more; V49.40XA Driver injured in collision with unspecified motor vehicles in traffic accident, initial encounter; Y92.410 Unspecified street and highway as the place of occurrence of the external cause
CPT/HCPCS: 70450; 70486; 71045; 71260; 72125; 72170; 74177; 80048; 80076; 80306; 81000; 83690; 85027; 93041; 99284; G0480; 36415; 80320; 90715

== ENCOUNTER 2020-08-08 09:37 | Inpatient (IN) | payer BC ==
[~2020-08-08] VITALS: Ht 180.3 cm; Wt 84.5 kg
[2020-08-08] MEDS ORDERED: ONDANSETRON 4 MG/2 ML (SDV) Z0FRAN IVP ONE (10:15)
[2020-08-08] MEDS ORDERED: FAMOTIDINE 20MG/2ML IV (PEPCID) IVP ONE (10:15)
[2020-08-08] MEDS ORDERED: LACTATED RINGERS 1,000 ML IV ONE ×2 (10:15→12:30)
[2020-08-08 10:18] LABS: BASOPHILS % (AUTO) 0 % (0-10); EOSINOPHILS % (AUTO) 0 % (0-10); HEMATOCRIT 48 % (40-54); HEMOGLOBIN 16.3 g/dL (13.3-17.7); LYMPHOCYTES % (AUTO) 8 % (12-44); MEAN CORPUSCULAR HEMOGLOBIN 31 pg (25-34); MEAN CORPUSCULAR HGB CONC 34 g/dL (32-36); MEAN CORPUSCULAR VOLUME 89 fL (80-99); MEAN PLATELET VOLUME 9.9 fL (9.0-12.2); MONOCYTES # (AUTO) 0.9 10^3/uL (0.0-1.0); MONOCYTES % (AUTO) 7 % (0-12); NEUTROPHILS # (AUTO) 10.6 10^3/uL (1.8-7.8); NEUTROPHILS % (AUTO) 85 % (42-75); PLATELET COUNT 250 10^3/uL (130-400); WHITE BLOOD COUNT 12.5 10^3/uL (4.3-11.0)
--- NOTE | 2020-08-08 10:18 | ED Abdominal Pain ---
General Chief Complaint: Abdominal/GI Problems Stated Complaint: RLQ PAIN, N/V Nursing Triage Note: AMB TO ED REPORTS LAST NIGHT STARTED VOMITING WITH R LOWER QUAD PAIN Sepsis Screen: No Definite Risk Source of Information: Patient Exam Limitations: No Limitations (JEN CAMILO STUDENT) History of Present Illness Date Seen by Provider: Aug 08, 2020 Time Seen by Provider: 10:13 Initial Comments This is a 29 yo male with a history of pancreatits that presents today for RUQ abdominal pain. States that all of yesterday he was not feeling too well and around 9pm he started vomiting and continued until about 4am. States that the pain is RUQ, sharp and about an 8 out of 10. He denies fevers. He cannot think of anything he ate that might have triggered this, he has had no appetite since vomiting. He denies blood in his vomit, denies constipation and diarrhea as well. He has tried taking some medication to help his pain but did not get much relief. He does not think this feels the same as pancreatitis that he has had in the past. He appears to have some tremor during the interview. He admits to drinking about a 6 pack of beers per day. (JEN CAMILO STUDENT) Allergies and Home Medications Allergies Coded Allergies: acetaminophen (Verified Allergy, Unknown, 08/08/20) codeine (Verified Allergy, Unknown, 08/08/20) Home Medications ALPRAZolam 0.25 Mg Tablet, 1 MG PO TID Prescribed by: MALA BRYANT on 08/08/20 1511 Last Action: New Order Patient Home Medication List Home Medication List Reviewed: Yes (JEN CAMILO STUDENT) Review of Systems Review of Systems Constitutional: No chills, No dizziness, No fever EENTM: No Blurred Vision Respiratory: Denies Cough, Denies Shortness of Air Cardiovascular: Denies Chest Pain, Denies Edema, Denies Palpitations Gastrointestinal: Abdominal Pain; Denies Constipated, Denies Diarrhea; Nausea, Poor Appetite, Poor Fluid Intake, Vomiting Genitourinary: Denies Frequency, Denies Hematuria Musculoskeletal: No joint pain, No muscle pain Skin: No rash Psychiatric/Neurological: Denies Headache (JEN CAMILO STUDENT) Endocrine: No Symptoms Reported (JENNIFER WHITEHEAD MD) Past Rrmikbr-Lgfdvc-Aendgz Hx Past Med/Social Hx: Reviewed Nursing Past Med/Soc Hx (JENNIFER WHITEHEAD MD) Patient Social History Alcohol Use: Denies Use Number of Drinks Today: GG Alcohol Beverage of Choice: Whiskey Drug of Choice: MARIJUANA, history meth/heroin Smoking Status: Current Everyday Smoker Type Used: Cigarettes, Electronic/Vapor 2nd Hand Smoke Exposure: Yes Recent Infectious Disease Expo: No Recent Hopitalizations: No (JEN CAMILO STUDENT) Immunizations Up To Date Tetanus Booster (TDap): Less than 5yrs PED Vaccines UTD: Yes Date of Influenza Vaccine: Nov 14, 2019 (JEN CAMILO STUDENT) Seasonal Allergies Seasonal Allergies: No (JEN CAMILO) Past Medical History Surgeries: Yes (abdominal drains for pancreatic process) Abdominal, Tonsillectomy Respiratory: Yes Asthma Cardiac: No Neurological: No Reproductive Disorders: No Sexually Transmitted Disease: No Genitourinary: No Gastrointestinal: Yes Pancreatitis Musculoskeletal: No Endocrine: No HEENT: No Cancer: No Psychosocial: Yes (Daily alcohol use) Anxiety Integumentary: No Blood Disorders: No (JEN CAMILO STUDENT) Family Medical History No Pertinent Family Hx (JEN CAMILO STUDENT) Physical Exam Vital Signs Vital Signs - First Documented 08/08/20 09:41 Temp 35.9 Pulse 75 Resp 18 B/P (MAP) 158/116 (130) Pulse Ox 95 O2 Delivery Room Air (JENNIFER WHITEHEAD MD) Vital Signs Capillary Refill : Less Than 3 Seconds (JEN CAMILO STUDENT) Height/Weight/BMI Height: 5'11" Weight: 165lbs. oz. 74.073897yu; 27.00 BMI Method:Stated General Appearance: WD/WN, mild distress HEENT: other (Oral mucosa moist. ) Respiratory: chest non-tender, lungs clear, normal breath sounds, no r espiratory distress, no accessory muscle use Cardiovascular: regular rate, rhythm, no edema, no murmur Peripheral Pulses: 2+ Radial Pulses (R), 2+ Radial Pulses (L) Gastrointestinal: normal bowel sounds; No soft (Abdomen appears to be somewhat firm on palpation.); no organomegaly, no pulsatile mass, other (Tenderness in RUQ, especially to palpation. Negative Mcburney's) Extremities: no pedal edema, no calf tenderness Neurologic/Psychiatric: alert, normal mood/affect, oriented x 3 Skin: normal color, warm/dry (JEN CAMILO MED STUDENT) Progress/Results/Core Measures Results/Orders Lab Results Laboratory Tests Test 08/08/20 09:54 08/08/20 10:23 Range/Units White Blood Count 12.5 H 4.3-11.0 10^3/uL Red Blood Count 5.32 4.30-5.52 10^6/uL Hemoglobin 16.3 13.3-17.7 g/dL Hematocrit 48 40-54 % Mean Corpuscular Volume 89 80-99 fL Mean Corpuscular Hemoglobin 31 25-34 pg Mean Corpuscular Hemoglobin Concent 34 32-36 g/dL Red Cell Distribution Width 14.0 10.0-14.5 % Platelet Count 250 130-400 10^3/uL Mean Platelet Volume 9.9 9.0-12.2 fL Immature Granulocyte % (Auto) 0 % Neutrophils (%) (Auto) 85 H 42-75 % Lymphocytes (%) (Auto) 8 L 12-44 % Monocytes (%) (Auto) 7 0-12 % Eosinophils (%) (Auto) 0 0-10 % Basophils (%) (Auto) 0 0-10 % Neutrophils # (Auto) 10.6 H 1.8-7.8 10^3/uL Lymphocytes # (Auto) 1.0 1.0-4.0 10^3/uL Monocytes # (Auto) 0.9 0.0-1.0 10^3/uL Eosinophils # (Auto) 0.0 0.0-0.3 10^3/uL Basophils # (Auto) 0.0 0.0-0.1 10^3/uL Immature Granulocyte # (Auto) 0.0 0.0-0.1 10^3/uL Sodium Level 138 135-145 MMOL/L Potassium Level 4.5 3.6-5.0 MMOL/L Chloride Level 96 L 98-107 MMOL/L Carbon Dioxide Level 22 21-32 MMOL/L Anion Gap 20 H 5-14 MMOL/L Blood Urea Nitrogen 11 7-18 MG/DL Creatinine 1.01 0.60-1.30 MG/DL Estimat Glomerular Filtration Rate > 60 BUN/Creatinine Ratio 11 Glucose Level 178 H 70-105 MG/DL Calcium Level 10.7 H 8.5-10.1 MG/DL Corrected Calcium 8.5-10.1 MG/DL Total Bilirubin 1.9 H 0.1-1.0 MG/DL Aspartate Amino Transf (AST/SGOT) 130 H 5-34 U/L Alanine Aminotransferase (ALT/SGPT) 170 H 0-55 U/L Alkaline Phosphatase 92 40-136 U/L C-Reactive Protein High Sensitivity 0.28 0.00-0.50 MG/DL Total Protein 8.6 H 6.4-8.2 GM/DL Albumin 5.3 H 3.2-4.5 GM/DL Lipase 430 H 8-78 U/L Urine Color ORANGE Urine Clarity SL CLOUDY Urine pH 6.5 5-9 Urine Specific [place] 1.025 H 1.016-1.022 Urine Protein 3+ H NEGATIVE Urine Glucose (UA) NEGATIVE NEGATIVE Urine Ketones 3+ H NEGATIVE Urine Nitrite POSITIVE H NEGATIVE Urine Bilirubin 3+ H NEGATIVE Urine Urobilinogen 2.0 < = 1.0 MG/DL Urine Leukocyte Esterase TRACE H NEGATIVE Urine RBC (Auto) 2+ H NEGATIVE Urine RBC 0-2 /HPF Urine WBC 5-10 H /HPF Urine Crystals NONE /LPF Urine Bacteria FEW H /HPF Urine Casts NONE /LPF Urine Mucus LARGE H /LPF Urine Culture Indicated YES Urine Opiates Screen POSITIVE H NEGATIVE Urine Oxycodone Screen NEGATIVE NEGATIVE Urine Methadone Screen NEGATIVE NEGATIVE Urine Propoxyphene Screen NEGATIVE NEGATIVE Urine Barbiturates Screen NEGATIVE NEGATIVE Ur Tricyclic Antidepressants Screen NEGATIVE NEGATIVE Urine Phencyclidine Screen NEGATIVE NEGATIVE Urine Amphetamines Screen NEGATIVE NEGATIVE Urine Methamphetamines Screen NEGATIVE NEGATIVE Urine Benzodiazepines Screen POSITIVE H NEGATIVE Urine Cocaine Screen NEGATIVE NEGATIVE Urine Cannabinoids Screen POSITIVE H NEGATIVE (JENNIFER WHITEHEAD MD) My Orders Orders - JENNIFER WHITEHEAD MD Cbc With Automated Diff (08/08/20 10:06) Comprehensive Metabolic Panel (08/08/20 10:06) Hs C Reactive Protein (08/08/20 10:06) Lipase (08/08/20 10:06) Ua Culture If Indicated (08/08/20 10:06) Ed Iv/Invasive Line Start (08/08/20 10:06) Lactated Ringers (Lr 1000 Ml Iv Solution (08/08/20 10:15) Ondansetron Injection (Zofran Injectio (08/08/20 10:15) Famotidine Injection (Pepcid Injection) (08/08/20 10:15) Lorazepam Injection (Ativan Injection) (08/08/20 10:45) Ct Abdomen/Pelvis W (08/08/20 10:45) Iohexol Injection (Omnipaque 350 Mg/Ml 1 (08/08/20 11:00) Received Contrast (Hold Metformin- Contr (08/08/20 11:00) Sodium Chloride Flush (Catheter Flush Sy (08/08/20 11:00) Ns (Ivpb) (Sodium Chloride 0.9% Ivpb Bag (08/08/20 11:00) Urine Culture (08/08/20 10:23) Fentanyl Inj (Sublimaze Injection) (08/08/20 11:30) Drug Screen Stat (Urine) (08/08/20 11:55) Hepatitis Panel Acute (08/08/20 11:55) Pantoprazole Injection (Protonix Injecti (08/08/20 12:15) Ceftriaxone (Rocephin) (08/08/20 12:15) Morphine Injection (Morphine Injection (08/08/20 12:06) (JENNIFER WHITEHEAD MD) Medications Given in ED Current Medications Medications Dose Ordered Sig/Stoney Route Start Time Stop Time Status Last Admin Dose Admin Famotidine 20 mg ONCE ONCE IVP 08/08/20 10:15 08/08/20 10:16 DC 08/08/20 10:29 20 MG Fentanyl Citrate 50 mcg ONCE ONCE IVP 08/08/20 11:30 08/08/20 11:31 DC 08/08/20 11:37 50 MCG Iohexol 100 ml ONCE ONCE IV 08/08/20 11:00 08/08/20 11:01 DC 08/08/20 11:17 100 ML Lactated Ringer's 1,000 ml @ 0 mls/hr Q0M ONCE IV 08/08/20 10:15 08/08/20 10:16 DC 08/08/20 10:30 1,000 MLS/HR Lorazepam 1 mg ONCE ONCE IVP 08/08/20 10:45 08/08/20 10:47 DC 08/08/20 10:53 1 MG Ondansetron HCl 8 mg ONCE ONCE IVP 08/08/20 10:15 08/08/20 10:16 DC 08/08/20 10:28 8 MG Sodium Chloride 10 ml NEEDED PRN IV 08/08/20 11:00 08/08/20 11:17 10 ML Sodium Chloride 100 ml ONCE ONCE IV 08/08/20 11:00 08/08/20 11:01 DC 08/08/20 11:17 80 ML (JENNIFER WHITEHEAD MD) Vital Signs/I&O 08/08/20 08/08/20 09:41 11:51 Temp 35.9 Pulse 75 71 Resp 18 18 B/P (MAP) 158/116 (130) 157/109 (125) Pulse Ox 95 98 O2 Delivery Room Air Room Air (JENNIFER WHITEHEAD MD) Blood Pressure Mean: 130 Progress Progress Note : Progress Note Patient was treated with Zofran, Pepcid, IV fluids, and fentanyl. Work-up revealed pancreatitis. Patient's overall picture is somewhat concerning, especially given the quantity of alcohol that he drinks and the severity of his pain. CT of the abdomen and pelvis was offered and patient elected to proceed. CT demonstrated pancreatitis and duodenitis. This was correlated with an elevated lipase lab value. Patient was further treated with Phenergan, 2nd liter of IV fluids, and morphine for control of symptoms. CT was discussed with Dr. Adams. He did not feel that a surgical consult was mandatory in this case but offered it if needed. Case was discussed with Dr. Strong who accepted admission. Ativan was given for control of withdrawal symptoms and alcohol withdrawal orders were added to the admission orders. Patient's tremor did improve after Ativan. (JENNIFER WHITEHEAD MD) Diagnostic Imaging Diagonstic Imaging: CT Plain Films/CT/US/NM/MRI: abdomen, pelvis Comments CT abdomen pelvis viewed by me and discussed with Dr. Adams. Report reviewed. See report below: NAME: DIONNE NORMAN MED REC#: [id number] PT STATUS: REG ER : 1990 PHYSICIAN: JENNIFER WHITEHEAD MD ADMIT DATE: 08/08/20/ER Draft Date of Exam:08/08/20 CT ABDOMEN/PELVIS W EXAMINATION: CT abdomen and pelvis with intravenous contrast. TECHNIQUE: Multiple contiguous axial images were obtained through the abdomen and pelvis after the uneventful administration of intravenous contrast. All CT scans use one or more of the following dose optimizing techniques: automated exposure control, MA and/or KvP adjustment based on patient size and exam type or iterative reconstruction. HISTORY: RUQ pain, Vomiting, Distension COMPARISON: 04/30/2020 FINDINGS: Lung bases: The lung bases are clear. Solid organs: There is diffuse hypoattenuation of the liver compatible with hepatic steatosis. The gallbladder is normal. There is no biliary ductal dilation. Pancreas is normal in volume without ductal dilatation. There is inflammatory stranding along the pancreas. No loculated fluid collection. Spleen is normal. Adrenal glands are normal. The kidneys are normal without hydronephrosis. Bowel: There is inflammatory stranding and fluid surrounding the second portion the duodenum which remains otherwise unremarkable. There is no bowel obstruction. No findings of acute appendicitis. Peritoneum: There is a trace amount of fluid within the left paracolic gutter. No suspicious lymphadenopathy. Vasculature: Normal without aneurysm. Musculoskeletal: No suspicious osseous lesion or compression fracture. Pelvis: The prostate gland is normal. The urinary bladder is normal. IMPRESSION: 1. Peripancreatic fluid and stranding concerning for acute pancreatitis. No peripancreatic loculated fluid collection or findings to suggest necrosis. Recommend correlation with laboratory values. 2. Likely reactive edema surrounding the duodenum. 3. Hepatic steatosis. Dictated on workstation # [id number] Dict: 08/08/20 1126 Trans: 08/08/20 1133 [facility] [id number] Interpreted by: CHOCO CASTANEDA DO (JENNIFER WHITEHEAD MD) Departure Communication (Admissions) Time/Spoke to Admitting Phy: 12:00 Dr. Strong (JENNIFER WHITEHEAD MD) Impression Primary Impression: Acute pancreatitis Qualified Codes: K85.20 - Alcohol induced acute pancreatitis without necrosis or infection Additional Impressions: Acute duodenitis Alcohol withdrawal Qualified Codes: F10.239 - Alcohol dependence with withdrawal, unspecified Urinary tract infection Qualified Codes: N39.0 - Urinary tract infection, site not specified Disposition: ADMITTED INPATIENT Condition: Improved Admissions Decision to Admit Reason: Admit from ER (General) Decision to Admit/Date: Aug 08, 2020 Time/Decision to Admit Time: 11:50 (JENNIFER WHITEHEAD MD) Departure-Patient Inst. Referrals: BRAXTON CALIX MD (PCP/Family) Primary Care Physician Scripts ALPRAZolam (ALPRAZolam) 0.25 Mg Tablet 1 MG PO TID, #60 TAB Prov: TRISTIN STRONG MD 08/08/20 Medical Student Attestation and Attending Note: I have personally interviewed and examined this patient along with Jen Camilo. I have reviewed student documentation including history, physical, and assessments. I agree with the documentation except where otherwise noted. (JENNIFER WHITEHEAD MD) JEN CAMILO MED STUDENT Aug 08, 2020 10:18 JENNIFER WHITEHEAD MD Aug 08, 2020 12:18
[2020-08-08 10:27] LABS: ALBUMIN 5.3 GM/DL (3.2-4.5); CHLORIDE 96 MMOL/L (98-107); POTASSIUM 4.5 MMOL/L (3.6-5.0); SODIUM 138 MMOL/L (135-145)
[2020-08-08 10:28] LABS: CALCIUM 10.7 MG/DL (8.5-10.1)
[2020-08-08 10:30] LABS: GLUCOSE 178 MG/DL (70-105); TOTAL PROTEIN 8.6 GM/DL (6.4-8.2)
[2020-08-08 10:31] LABS: BILIRUBIN,TOTAL 1.9 MG/DL (0.1-1.0); CARBON DIOXIDE 22 MMOL/L (21-32)
[2020-08-08 10:33] LABS: ALKALINE PHOSPHATASE 92 U/L (40-136); CREATININE SERUM 1.01 MG/DL (0.60-1.30); GFR ESTIMATED > 60
[2020-08-08 10:34] LABS: BUN/CREATININE RATIO 11
[2020-08-08 10:36] LABS: ALANINE AMINOTRANSFERASE 170 U/L (0-55)
[2020-08-08 10:37] LABS: LIPASE 430 U/L (8-78)
[2020-08-08 10:45] LABS: BILIRUBIN,URINE 3+ (NEGATIVE); CLARITY,URINE SL CLOUDY; COLOR,URINE ORANGE; GLUCOSE, URINE (UA) NEGATIVE (NEGATIVE); KETONES,URINE 3+ (NEGATIVE); LEUKOCYTE ESTERASE ,URINE TRACE (NEGATIVE); NITRITE,URINE POSITIVE (NEGATIVE); PH,URINE 6.5 (5-9); PROTEIN,URINE 3+ (NEGATIVE)
[2020-08-08] MEDS ORDERED: LORazepam INJ 2 MG/ML (ATIVAN) VIAL IVP ONE (10:45)
[2020-08-08] MEDS ORDERED: HOLD METFORMIN - RECEIVED CONTRAST 20 ML VIAL IV SCH (11:00)
[2020-08-08] MEDS ORDERED: CATHETER FLUSH 10 ML SYR IV PRN (11:00)
[2020-08-08] MEDS ORDERED: NS 100 ML (IVPB) BAG IV ONE (11:00)
[2020-08-08] MEDS ORDERED: IOHEXOL 350 MG/ML 100 ML (OMNIPAQUE 350) VIAL IV ONE (11:00)
[2020-08-08 11:01] LABS: RBC,URINE 0-2 /HPF
[2020-08-08 11:02] LABS: BACTERIA,URINE FEW /HPF
[2020-08-08] MEDS ORDERED: fentaNYL INJ 100 MCG/2 ML AMP IVP ONE (11:30)
--- NOTE | 2020-08-08 11:34 | Diagnostic Imaging Report ---
EXAMINATION: CT abdomen and pelvis with intravenous contrast. TECHNIQUE: Multiple contiguous axial images were obtained through the abdomen and pelvis after the uneventful administration of intravenous contrast. All CT scans use one or more of the following dose optimizing techniques: automated exposure control, MA and/or KvP adjustment based on patient size and exam type or iterative reconstruction. HISTORY: RUQ pain, Vomiting, Distension COMPARISON: 04/30/2020 FINDINGS: Lung bases: The lung bases are clear. Solid organs: There is diffuse hypoattenuation of the liver compatible with hepatic steatosis. The gallbladder is normal. There is no biliary ductal dilation. Pancreas is normal in volume without ductal dilatation. There is inflammatory stranding along the pancreas. No loculated fluid collection. Spleen is normal. Adrenal glands are normal. The kidneys are normal without hydronephrosis. Bowel: There is inflammatory stranding and fluid surrounding the second portion the duodenum which remains otherwise unremarkable. There is no bowel obstruction. No findings of acute appendicitis. Peritoneum: There is a trace amount of fluid within the left paracolic gutter. No suspicious lymphadenopathy. Vasculature: Normal without aneurysm. Musculoskeletal: No suspicious osseous lesion or compression fracture. Pelvis: The prostate gland is normal. The urinary bladder is normal. IMPRESSION: 1. Peripancreatic fluid and stranding concerning for acute pancreatitis. No peripancreatic loculated fluid collection or findings to suggest necrosis. Recommend correlation with laboratory values. 2. Likely reactive edema surrounding the duodenum. 3. Hepatic steatosis. Dictated by: Dictated on workstation # [id number]
[2020-08-08] MEDS ORDERED: morphine INJ 10 MG/ML 1ML (SYR OR VIAL) IVP STA (12:06)
[2020-08-08] MEDS ORDERED: cefTRIAXone 1,000 MG in WATER (STERILE) FOR INJECTION 10 ML IV ONE (12:15)
[2020-08-08] MEDS ORDERED: PANTOPRAZOLE 40 MG (PROTONIX) VIAL IV ONE (12:15)
[2020-08-08] MEDS ORDERED: PROMETHAZINE INJ 25 MG/ML (PHENERGAN) AMP IVP ONE (12:30)
[2020-08-08 12:45] LABS: AMPHETAMINE SCREEN, URINE NEGATIVE (NEGATIVE); BARBITURATE SCREEN URINE NEGATIVE (NEGATIVE); BENZODIAZEPINES SCREEN URINE POSITIVE (NEGATIVE); CANNABINOID SCREEN, URINE POSITIVE (NEGATIVE); COCAINE SCREEN URINE NEGATIVE (NEGATIVE); METHADONE STAT NEGATIVE (NEGATIVE); METHAMPHETAMINE SCREEN URINE S NEGATIVE (NEGATIVE); OPIATE SCREEN URINE POSITIVE (NEGATIVE); OXYCODONE STAT NEGATIVE (NEGATIVE); PROPOXYPHENE STAT NEGATIVE (NEGATIVE); TRICYCLIC ANTIDEPRESSANTS SCRE NEGATIVE (NEGATIVE)
[2020-08-08 13:50] VITALS: BP 151/100
[2020-08-08] MEDS: LACTATED RINGERS 1,000 ML IV SCH ×2 (14:05→16:14)
[2020-08-08] MEDS ORDERED: ONDANSETRON 4 MG (ZOFRAN) ORAL DISSOLVE TAB PO PRN (14:15)
[2020-08-08] MEDS ORDERED: ONDANSETRON 4 MG/2 ML (SDV) Z0FRAN IV PRN (14:15)
[2020-08-08] MEDS ORDERED: LORazepam INJ 2 MG/ML (ATIVAN) VIAL IV PRN ×3 (14:15→14:30)
[2020-08-08] MEDS ORDERED: LORazepam INJ 2 MG/ML (ATIVAN) VIAL IM/IV PRN (14:15)
[2020-08-08] MEDS ORDERED: LORazepam 1 MG (ATIVAN) TAB PO PRN ×2 (14:30)
[2020-08-08] MEDS ORDERED: ALPR0.254 PO (15:11)
[2020-08-08 16:24] VITALS: BP 161/98
[2020-08-08] MEDS ORDERED: hydrALAZINE (APESOLINE) 20 MG/ML VIAL IV ONE (16:30)
[2020-08-08] MEDS ORDERED: NICOTINE 14 MG (NICODERM) PATCH TD ONE (17:00)
[2020-08-08 19:56] VITALS: BP 143/80
[2020-08-08] MEDS: hydrALAZINE (APESOLINE) 20 MG/ML VIAL IV SCH (19:59)
[2020-08-08] MEDS: morphine INJ 10 MG/ML 1ML (SYR OR VIAL) IV PRN (20:19)
[2020-08-08] MEDS: LORazepam 1 MG (ATIVAN) TAB PO PRN (22:51)
[2020-08-08 23:41] VITALS: BP 136/87
[2020-08-09] MEDS: hydrALAZINE (APESOLINE) 20 MG/ML VIAL IV SCH ×6 (00:15→19:59)
[2020-08-09] MEDS: morphine INJ 10 MG/ML 1ML (SYR OR VIAL) IV PRN ×2 (00:24→05:27)
[2020-08-09] MEDS: LACTATED RINGERS 1,000 ML IV SCH ×4 (01:00→22:08)
[2020-08-09 04:13] VITALS: BP 127/88
[2020-08-09 05:05] LABS: BASOPHILS % (AUTO) 0 % (0-10); EOSINOPHILS % (AUTO) 0 % (0-10); MEAN CORPUSCULAR HGB CONC 34 g/dL (32-36)
[2020-08-09 05:07] LABS: HEMATOCRIT 41 % (40-54); HEMOGLOBIN 13.9 g/dL (13.3-17.7); LYMPHOCYTES # (AUTO) 1.4 10^3/uL (1.0-4.0); LYMPHOCYTES % (AUTO) 19 % (12-44); MEAN CORPUSCULAR HEMOGLOBIN 31 pg (25-34); MEAN CORPUSCULAR VOLUME 90 fL (80-99); MEAN PLATELET VOLUME 9.5 fL (9.0-12.2); MONOCYTES # (AUTO) 0.6 10^3/uL (0.0-1.0); MONOCYTES % (AUTO) 8 % (0-12); NEUTROPHILS # (AUTO) 5.3 10^3/uL (1.8-7.8); NEUTROPHILS % (AUTO) 73 % (42-75); PLATELET COUNT 120 10^3/uL (130-400); WHITE BLOOD COUNT 7.3 10^3/uL (4.3-11.0)
[2020-08-09 05:23] LABS: ALBUMIN 3.8 GM/DL (3.2-4.5)
[2020-08-09 05:24] LABS: CHLORIDE 101 MMOL/L (98-107); POTASSIUM 3.6 MMOL/L (3.6-5.0); SODIUM 136 MMOL/L (135-145)
[2020-08-09 05:25] LABS: CALCIUM 8.9 MG/DL (8.5-10.1)
[2020-08-09 05:26] LABS: GLUCOSE 95 MG/DL (70-105); TOTAL PROTEIN 6.1 GM/DL (6.4-8.2)
[2020-08-09 05:27] LABS: CARBON DIOXIDE 24 MMOL/L (21-32)
[2020-08-09 05:28] LABS: BILIRUBIN,TOTAL 1.1 MG/DL (0.1-1.0)
[2020-08-09 05:30] LABS: ALKALINE PHOSPHATASE 66 U/L (40-136); CREATININE SERUM 0.67 MG/DL (0.60-1.30); GFR ESTIMATED > 60
[2020-08-09 05:31] LABS: BUN/CREATININE RATIO 10
[2020-08-09 05:33] LABS: ALANINE AMINOTRANSFERASE 86 U/L (0-55); LIPASE 318 U/L (8-78)
[2020-08-09 07:18] VITALS: BP 122/79
[2020-08-09] MEDS: PANTOPRAZOLE 40 MG (PROTONIX) VIAL IV SCH (07:56)
[2020-08-09] MEDS: THIAMINE INJECTION 100 MG, FOLIC ACID INJECTION 1 MG, VITAMIN MULTI INJECTION 10 ML, MA... IV SCH ×5 (08:18)
[2020-08-09] MEDS ORDERED: THIAMINE INJECTION 100 MG, FOLIC ACID INJECTION 1 MG, VITAMIN MULTI INJECTION 10 ML, MA... IV SCH ×5 (09:00)
[2020-08-09] MEDS ORDERED: cefTRIAXone 1,000 MG/SWFI 10 ML IV PUSH IV SCH ×2 (09:00)
[2020-08-09] MEDS ORDERED: PATCH REMOVAL TP SCH (09:00)
[2020-08-09 11:16] VITALS: BP 130/86
--- NOTE | 2020-08-09 12:07 | History & Physical-Hospitalist ---
History of Present Illness HPI/Chief Complaint Chidi Angel is a 29-year-old male who presented with abdominal pain. The pain is located in his epigastric and right upper quadrant. There is no radiation. He describes the pain as sharp. It was an 8 out of 10 on arrival but is improved to 3 out of 10 this morning. He was having nausea and vomiting but this is improved. He denies any fevers or chills. He denies any chest pain or shortness of breath. He denies any diarrhea. He thought this was pancreatitis. He had an episode of pancreatitis several months ago. This was a alcohol related and he says that he cut back on his drinking. He does continue to drink a few whiskey drinks every night. He is also a current every day smoker. He has a history of IV drug abuse but is not currently using any illicit drugs other than cannabis. Source: patient Exam Limitations: no limitations Date Seen 08/09/20 Time Seen by a Provider: 09:25 Attending Physician Tristin Strong MD PCP Bryn Zaragoza MD Referring Physician Date of Admission Aug 08, 2020 at 12:11 Home Medications & Allergies Home Medications Reviewed patient Home Medication Reconciliation performed by pharmacy medication reconciliations automotive engineering technician and/or nursing. Patients Allergies have been reviewed. Allergies Allergies Coded Allergies acetaminophen (Verified Allergy, Unknown, 08/08/20) codeine (Verified Allergy, Unknown, 08/08/20) Past Mkraepy-Ckjmnz-Hebcjv Hx Patient Social History Tobacco Use?: Yes Tobacco type used: Cigarettes Smoking Status: Current Everyday Smoker Smokeless Tobacco Frequency: Current Everyday User Use of E-Cig and/or Vaping dev: No Substance use?: No Alcohol Use?: Yes Alcohol type: Beer Alcohol Frequency: Daily Pt feels they are or have been: No Immunizations Up To Date Date of Influenza Vaccine: Nov 14, 2019 First/Initial COVID19 Vaccinat: May Second COVID19 Vaccination Emeka: JUNE 27 Tetanus Booster (TDap): Unknown Hepatitis A: No Hepatitis B: No PED Vaccines UTD: Yes Seasonal Allergies Seasonal Allergies: No Current Status Advance Directives: No Communicates: Verbally Primary Language: Sammarinese Preferred Spoken Language: Sammarinese Is interpretation needed?: No Implanted or Applied Medical D: None Past Medical History Surgeries: Abdominal, Tonsillectomy Asthma Sexually Transmitted Disease: No Pancreatitis Anxiety Blood Disorders: No Family Medical History Reviewed Nursing Family Hx No Pertinent Family Hx Review of Systems Constitutional: no symptoms reported EENTM: no symptoms reported Respiratory: no symptoms reported Cardiovascular: no symptoms reported Gastrointestinal: abdominal pain, nausea, vomiting Genitourinary: no symptoms reported Musculoskeletal: no symptoms reported Skin: no symptoms reported Psychiatric/Neurological: No Symptoms Reported Physical Exam Physical Exam Vital Signs Vital Signs - First Documented 08/08/20 09:41 Temp 35.9 Pulse 75 Resp 18 B/P (MAP) 158/116 (130) Pulse Ox 95 O2 Delivery Room Air Capillary Refill : Less Than 3 Seconds Height, Weight, BMI Height: 5'11" Weight: 165lbs. oz. [id number]; 25.99 BMI Method:Stated General Appearance: No Apparent Distress, WD/WN HEENT: PERRL/EOMI, Pharynx Normal Neck: Normal Inspection, Supple Respiratory: Lungs Clear, Normal Breath Sounds, No Respiratory Distress Cardiovascular: Regular Rate, Rhythm, No Edema, No Murmur, Normal Peripheral Pulses Gastrointestinal: Normal Bowel Sounds, No Organomegaly, Soft, Tenderness Extremity: Normal Inspection, Non Tender, No Pedal Edema Neurologic/Psychiatric: Alert, Oriented x3, No Motor/Sensory Deficits, Normal Mood/Affect Skin: Normal Color, Warm/Dry Results Results/Procedures Labs Laboratory Tests 08/08/20 09:54 08/09/20 04:52 Patient resulted labs reviewed. Imaging: Reviewed Imaging Report Assessment/Plan Admission Diagnosis Acute pancreatitis Admission Status: Inpatient Order (span 2 midnights) Reason for Inpatient Admission: IV fluids and pain medication Assessment and Plan Acute alcoholic pancreatitis Acute alcoholic hepatitis Thrombocytopenia Acute kidney injury Alcohol abuse IV fluids NPO since arrival, advance to clears Pain regimen Antiemetics [place] protocol Social work consult Tobacco abuse Nicotine patch Cannabis abuse History of IV drug abuse Checking hepatitis panel Abnormal UA No evidence of UTI Antibiotics stopped Will need repeat UA in a few weeks to reassess DVT prophylaxis: Lovenox Diagnosis/Problems Diagnosis/Problems (1) Acute alcoholic pancreatitis Status: Acute Qualifiers: Acute pancreatitis complication: no infection or necrosis Qualified Codes: K85.20 - Alcohol induced acute pancreatitis without necrosis or infection (2) Acute alcoholic hepatitis Status: Acute (3) Elevated LFTs Status: Acute (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
[2020-08-09] MEDS: ENOXAPARIN 40 MG/0.4 ML (LOVENOX) SYR SC SCH (12:38)
[2020-08-09] MEDS: LORazepam 1 MG (ATIVAN) TAB PO PRN ×2 (13:51→21:34)
[2020-08-09 16:01] VITALS: BP 124/89
[2020-08-09] MEDS: NICOTINE 14 MG (NICODERM) PATCH TD SCH (17:27)
[2020-08-09] MEDS: PATCH REMOVAL TP SCH (17:28)
[2020-08-09 19:57] VITALS: BP 127/93
[2020-08-10] VITALS: BP 141/92
[2020-08-10] MEDS: hydrALAZINE (APESOLINE) 20 MG/ML VIAL IV SCH ×4 (00:12→12:18)
[2020-08-10 04:24] VITALS: BP 133/83
[2020-08-10 05:28] LABS: EOSINOPHILS # (AUTO) 0.1 10^3/uL (0.0-0.3); MEAN CORPUSCULAR HEMOGLOBIN 31 pg (25-34); MEAN PLATELET VOLUME 9.6 fL (9.0-12.2)
[2020-08-10 05:29] LABS: BASOPHILS % (AUTO) 0 % (0-10); EOSINOPHILS % (AUTO) 1 % (0-10); HEMATOCRIT 36 % (40-54); LYMPHOCYTES # (AUTO) 2.2 10^3/uL (1.0-4.0); LYMPHOCYTES % (AUTO) 41 % (12-44); MEAN CORPUSCULAR HGB CONC 34 g/dL (32-36); MEAN CORPUSCULAR VOLUME 91 fL (80-99); MONOCYTES # (AUTO) 0.5 10^3/uL (0.0-1.0); MONOCYTES % (AUTO) 9 % (0-12); NEUTROPHILS # (AUTO) 2.6 10^3/uL (1.8-7.8); NEUTROPHILS % (AUTO) 49 % (42-75); PLATELET COUNT 112 10^3/uL (130-400); WHITE BLOOD COUNT 5.4 10^3/uL (4.3-11.0)
[2020-08-10 05:36] LABS: ALBUMIN 3.6 GM/DL (3.2-4.5)
[2020-08-10 05:37] LABS: CHLORIDE 104 MMOL/L (98-107); POTASSIUM 3.8 MMOL/L (3.6-5.0); SODIUM 138 MMOL/L (135-145)
[2020-08-10 05:38] LABS: CALCIUM 8.7 MG/DL (8.5-10.1)
[2020-08-10 05:39] LABS: GLUCOSE 87 MG/DL (70-105)
[2020-08-10 05:40] LABS: CARBON DIOXIDE 23 MMOL/L (21-32)
[2020-08-10 05:41] LABS: BILIRUBIN,TOTAL 0.9 MG/DL (0.1-1.0)
[2020-08-10 05:42] LABS: ALKALINE PHOSPHATASE 58 U/L (40-136)
[2020-08-10 05:43] LABS: CREATININE SERUM 0.68 MG/DL (0.60-1.30); GFR ESTIMATED > 60
[2020-08-10 05:44] LABS: BUN/CREATININE RATIO 7
[2020-08-10 05:45] LABS: ALANINE AMINOTRANSFERASE 63 U/L (0-55)
[2020-08-10] MEDS: LACTATED RINGERS 1,000 ML IV SCH ×2 (06:52→10:55)
[2020-08-10 08:00] VITALS: BP 123/84
[2020-08-10] MEDS ORDERED: MELO15TA39 PO (08:18)
[2020-08-10] MEDS ORDERED: LORA-405 PO (08:18)
[2020-08-10] MEDS: THIAMINE INJECTION 100 MG, FOLIC ACID INJECTION 1 MG, VITAMIN MULTI INJECTION 10 ML, MA... IV SCH ×5 (09:00)
[2020-08-10] MEDS: PANTOPRAZOLE 40 MG (PROTONIX) VIAL IV SCH (09:00)
[2020-08-10] MEDS: NICOTINE 14 MG (NICODERM) PATCH TD SCH (10:54)
[2020-08-10] MEDS: PATCH REMOVAL TP SCH (10:55)
--- NOTE | 2020-08-10 11:11 | Discharge Inst-Simple/Standard ---
Discharge Inst-Standard Patient Instructions/Follow Up Plan of Care/Instructions/FU: Please continue to take this medication as written. Please follow up with your primary care doctor to follow up this hospital stay. Please continue to work on sobriety. Activity as Tolerated: Yes Discharge Diet: Low Fat/Low Cholesterol Return to The Hospital For: Abdominal pain, nausea, vomiting, fever, if you feel you are getting worse. CLAIR BAUMANN MD Aug 10, 2020 11:11
--- NOTE | 2020-08-10 11:13 | Discharge Summary ---
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 (5) Thrombocytopenia Status: Acute (6) LAUREN (acute kidney injury) Status: Acute (7) Abnormal urinalysis Status: Acute (8) Alcohol abuse Status: Chronic (9) Tobacco abuse Status: Chronic (10) Cannabis abuse Status: Chronic Discharge Summary Discharge Physical Exam Allergies: Coded Allergies: acetaminophen (Verified Allergy, Unknown, 08/08/20) codeine (Verified Allergy, Unknown, 08/08/20) Vitals & I&Os Vital Signs Date Time Temp Pulse Resp B/P (MAP) Pulse Ox O2 Delivery O2 Flow Rate FiO2 08/10/20 12:45 74 08/10/20 12:00 36.8 18 136/93 (107) 96 Room Air General Appearance: No Apparent Distress, WD/WN Respiratory: Lungs Clear, No Respiratory Distress Cardiovascular: Regular Rate, Rhythm, No Murmur Neurologic/Psychiatric: Alert, Oriented x3 Hospital Course Pt was admitted due to alcoholic pancreatitis. He was treated with IV fluids and bowel rest and improved quickly. He was able to advance his diet and tolerated this well. This is not his first admission for alcoholic pancreatitis and he reports his desire to become sober. Social work was consulted for assistance with those resources. He was advised to follow up with his primary care doctor to follow up this hospital stay. Labs (last 24 hrs) Laboratory Tests 08/10/20 05:14: White Blood Count 5.4, Red Blood Count 3.90L, Hemoglobin 12.0L, Hematocrit 36L, Mean Corpuscular Volume 91, Mean Corpuscular Hemoglobin 31, Mean Corpuscular Hemoglobin Concent 34, Red Cell Distribution Width 14.2, Platelet Count 112L, Mean Platelet Volume 9.6, Immature Granulocyte % (Auto) 0, Neutrophils (%) (Auto) 49, Lymphocytes (%) (Auto) 41, Monocytes (%) (Auto) 9, Eosinophils (%) (Auto) 1, Basophils (%) (Auto) 0, Neutrophils # (Auto) 2.6, Lymphocytes # (Auto) 2.2, Monocytes # (Auto) 0.5, Eosinophils # (Auto) 0.1, Basophils # (Auto) 0.0, Immature Granulocyte # (Auto) 0.0, Percent Immature Platelet Fraction 3.8, Sodium Level 138, Potassium Level 3.8, Chloride Level 104, Carbon Dioxide Level 23, Anion Gap 11, Blood Urea Nitrogen 5L, Creatinine 0.68, Estimat Glomerular Filtration Rate > 60, BUN/Creatinine Ratio 7, Glucose Level 87, Calcium Level 8.7, Corrected Calcium 9.0, Total Bilirubin 0.9, Aspartate Amino Transf (AST/SGOT) 44H, Alanine Aminotransferase (ALT/SGPT) 63H, Alkaline Phosphatase 58, Total Protein 6.0L, Albumin 3.6 Microbiology 08/08/20 Urine Culture - Final, Complete NO GROWTH Patient resulted labs reviewed. Pending Labs Laboratory Tests 08/10/20 05:14: White Blood Count 5.4, Red Blood Count 3.90, Hemoglobin 12.0, Hematocrit 36, Mean Corpuscular Volume 91, Mean Corpuscular Hemoglobin 31, Mean Corpuscular Hemoglobin Concent 34, Red Cell Distribution Width 14.2, Platelet Count 112, Mean Platelet Volume 9.6, Immature Granulocyte % (Auto) 0, Neutrophils (%) (Auto) 49, Lymphocytes (%) (Auto) 41, Monocytes (%) (Auto) 9, Eosinophils (%) (Auto) 1, Basophils (%) (Auto) 0, Neutrophils # (Auto) 2.6, Lymphocytes # (Auto) 2.2, Monocytes # (Auto) 0.5, Eosinophils # (Auto) 0.1, Basophils # (Auto) 0.0, Immature Granulocyte # (Auto) 0.0, Percent Immature Platelet Fraction 3.8, Sodium Level 138, Potassium Level 3.8, Chloride Level 104, Carbon Dioxide Level 23, Anion Gap 11, Blood Urea Nitrogen 5, Creatinine 0.68, Estimat Glomerular Filtration Rate > 60, BUN/Creatinine Ratio 7, Glucose Level 87, Calcium Level 8.7, Corrected Calcium 9.0, Total Bilirubin 0.9, Aspartate Amino Transf (AST/SGOT) 44, Alanine Aminotransferase (ALT/SGPT) 63, Alkaline Phosphatase 58, Total Protein 6.0, Albumin 3.6 Imaging: Reviewed Imaging Report Discussion & Recommendations Discharge Planning: >30 minutes discharge planning Discharge Home Medications: Active Scripts Active Reported Ativan (Lorazepam) 1 Mg Tablet 1 Mg PO TID Meloxicam 15 Mg Tablet 15 Mg PO DAILY PRN Instructions to patient/family Please see electronic discharge instructions given to patient. Problem Qualifiers (1) Acute alcoholic pancreatitis: Acute pancreatitis complication: no infection or necrosis Qualified Codes: K85.20 - Alcohol induced acute pancreatitis without necrosis or infection CLAIR BAUMANN MD Aug 10, 2020 11:13
[2020-08-10 12:00] VITALS: BP 136/93
[2020-08-10] MEDS: ENOXAPARIN 40 MG/0.4 ML (LOVENOX) SYR SC SCH (13:34)
[2020-08-10 13:36] LABS: HEPATITIS C ANTIBODY C Non-Reactive (Non-Reactive)
== END 2020-08-10 13:45 | disposition home or self-care (01) | DRG 439 ==
LOC: EDUNIT# 09:37 → ER 09:38 → 4TH 12:11
PROVIDERS: ADMIT Internal Medicine; ATTEND Internal Medicine
DX: K85.20 Alcohol induced acute pancreatitis without necrosis or infection (principal); N17.9 Acute kidney failure, unspecified; F10.239 Alcohol dependence with withdrawal, unspecified; N39.0 Urinary tract infection, site not specified; K70.10 Alcoholic hepatitis without ascites; F19.10 Other psychoactive substance abuse, uncomplicated; D69.6 Thrombocytopenia, unspecified; F17.210 Nicotine dependence, cigarettes, uncomplicated; F41.9 Anxiety disorder, unspecified; J45.909 Unspecified asthma, uncomplicated; F12.10 Cannabis abuse, uncomplicated; K29.80 Duodenitis without bleeding
CPT/HCPCS: 36415; 74177; 80053; 80074; 80306; 81000; 82550; 83690; 85025; 86141; 87088; 87491; 87591

== ENCOUNTER 2021-07-13 09:25 | Day surgery (SDC) | payer SELFPAY ==
[~2021-07-13] VITALS: Ht 180 cm; Wt 92.0 kg
[2021-07-13] VITALS (11 sets, daily range): BP systolic 126–171; BP diastolic 92–107
[~2021-07-13 09:25] MED LIST changes: +ALPR0.254 PO; +LORA-405 PO; +MELO15TA39 PO
--- NOTE | 2021-07-13 09:38 | ED Abdominal Pain ---
General Chief Complaint: Abdominal/GI Problems Stated Complaint: ABD PAIN History of Present Illness Date Seen by Provider: July 13, 2021 Time Seen by Provider: 09:38 Initial Comments 29-year-old male with PMH of anxiety on chronic lorazepam use over the past 1 year with dosages of 1 mg 3 times daily, is here with complaints of anxiety and abdominal pain which began about 2 days ago. Patient stopped taking his lorazepam last Monday because he felt he was becoming addicted to the lorazepam. 2 days ago patient started having abdominal pain which has caused him not to feel well and also has not been eating due to the pain. Denies fever, chills, diarrhea, constipation, vomiting, headache, chest pain, shortness of breath. Patient has had some associated nausea. Allergies and Home Medications Allergies Coded Allergies: acetaminophen (Verified Allergy, Unknown, 08/08/20) codeine (Verified Allergy, Unknown, 08/08/20) Patient Home Medication List Home Medication List Reviewed: Yes Meloxicam (Meloxicam) 15 Mg Tablet, 15 MG PO DAILY PRN for PAIN-BREAKTHROUGH, (Reported) Entered as Reported by: JOEY RIDDLE on 08/10/20 0818 Tramadol HCl (Tramadol HCl) 50 Mg Tablet, 50 MG PO Q4H PRN for PAIN-MODERATE (5- 7) Prescribed by: ARYA MCARTHUR on 07/13/21 1435 Review of Systems Review of Systems Constitutional: see HPI EENTM: No Symptoms Reported Respiratory: No Symptoms Reported Cardiovascular: No Symptoms Reported Gastrointestinal: Abdominal Pain, Nausea, Poor Appetite, Poor Fluid Intake Genitourinary: No Symptoms Reported Musculoskeletal: no symptoms reported Psychiatric/Neurological: Anxiety Endocrine: No Symptoms Reported Hematologic/Lymphatic: No Symptoms Reported Past Rpdmmax-Tydkac-Qaikso Hx Immunizations Up To Date Tetanus Booster (TDap): Less than 5yrs PED Vaccines UTD: Yes Seasonal Allergies Seasonal Allergies: No Past Medical History Surgeries: Yes (abdominal drains for pancreatic process) Abdominal, Tonsillectomy Respiratory: Yes Asthma Cardiac: No Neurological: No Reproductive Disorders: No Sexually Transmitted Disease: No Genitourinary: No Gastrointestinal: Yes Pancreatitis Musculoskeletal: No Endocrine: No HEENT: No Cancer: No Psychosocial: Yes (Daily alcohol use) Anxiety Integumentary: No Blood Disorders: No Family Medical History No Pertinent Family Hx Physical Exam Vital Signs Capillary Refill : Height/Weight/BMI Height: 5'11" Weight: 165lbs. oz. [id number]; 25.99 BMI Method:Stated General Appearance: moderate distress HEENT: PERRL/EOMI Neck: non-tender, full range of motion, supple Respiratory: chest non-tender, lungs clear, normal breath sounds Cardiovascular: normal peripheral pulses, tachycardia Gastrointestinal: normal bowel sounds, distended (mildly), tenderness (diffuse tenderness, more in the epigastric area) Extremities: normal range of motion Back: normal inspection, no CVA tenderness, no vertebral tenderness Neurologic/Psychiatric: no motor/sensory deficits, alert, oriented x 3, other (extremely anxious) Skin: normal color Progress/Results/Core Measures Results/Orders Lab Results Laboratory Tests Test 07/13/21 09:54 07/13/21 11:19 Range/Units White Blood Count 12.9 H 4.3-11.0 10^3/uL Red Blood Count 5.11 4.30-5.52 10^6/uL Hemoglobin 17.4 13.3-17.7 g/dL Hematocrit 48 40-54 % Mean Corpuscular Volume 94 80-99 fL Mean Corpuscular Hemoglobin 34 25-34 pg Mean Corpuscular Hemoglobin Concent 36 32-36 g/dL Red Cell Distribution Width 12.8 10.0-14.5 % Platelet Count 260 130-400 10^3/uL Mean Platelet Volume 10.1 9.0-12.2 fL Immature Granulocyte % (Auto) 1 % Neutrophils (%) (Auto) 81 H 42-75 % Lymphocytes (%) (Auto) 12 12-44 % Monocytes (%) (Auto) 6 0-12 % Eosinophils (%) (Auto) 0 0-10 % Basophils (%) (Auto) 0 0-10 % Neutrophils # (Auto) 10.4 H 1.8-7.8 10^3/uL Lymphocytes # (Auto) 1.5 1.0-4.0 10^3/uL Monocytes # (Auto) 0.8 0.0-1.0 10^3/uL Eosinophils # (Auto) 0.0 0.0-0.3 10^3/uL Basophils # (Auto) 0.1 0.0-0.1 10^3/uL Immature Granulocyte # (Auto) 0.1 0.0-0.1 10^3/uL Sodium Level 137 135-145 MMOL/L Potassium Level 4.5 3.6-5.0 MMOL/L Chloride Level 96 L 98-107 MMOL/L Carbon Dioxide Level 17 L 21-32 MMOL/L Anion Gap 24 H 5-14 MMOL/L Blood Urea Nitrogen 10 7-18 MG/DL Creatinine 0.82 0.60-1.30 MG/DL Estimat Glomerular Filtration Rate 123 BUN/Creatinine Ratio 12 Glucose Level 86 70-105 MG/DL Calcium Level 10.2 H 8.5-10.1 MG/DL Corrected Calcium 8.5-10.1 MG/DL Total Bilirubin 1.3 H 0.1-1.0 MG/DL Aspartate Amino Transf (AST/SGOT) 122 H 5-34 U/L Alanine Aminotransferase (ALT/SGPT) 125 H 0-55 U/L Alkaline Phosphatase 78 40-136 U/L Total Protein 8.2 6.4-8.2 GM/DL Albumin 4.7 H 3.2-4.5 GM/DL Lipase 54 8-78 U/L Salicylates Level < 5.0 L 5.0-20.0 MG/DL Acetaminophen Level < 10 L 10-30 UG/ML Serum Alcohol < 10 <10 MG/DL Urine Color YELLOW Urine Clarity CLEAR Urine pH 6.0 5-9 Urine Specific [place] 1.025 H 1.016-1.022 Urine Protein 3+ H NEGATIVE Urine Glucose (UA) NEGATIVE NEGATIVE Urine Ketones 3+ H NEGATIVE Urine Nitrite NEGATIVE NEGATIVE Urine Bilirubin NEGATIVE NEGATIVE Urine Urobilinogen 1.0 < = 1.0 MG/DL Urine Leukocyte Esterase NEGATIVE NEGATIVE Urine RBC (Auto) TRACE-I H NEGATIVE Urine RBC 0-2 /HPF Urine WBC 0-2 /HPF Urine Squamous Epithelial Cells 0-2 /HPF Urine Crystals PRESENT H /LPF Urine Amorphous Sediment RARE OSCAR URATES H /LPF Urine Bacteria NEGATIVE /HPF Urine Casts NONE /LPF Urine Mucus NEGATIVE /LPF Urine Culture Indicated NO Urine Opiates Screen NEGATIVE NEGATIVE Urine Oxycodone Screen NEGATIVE NEGATIVE Urine Methadone Screen NEGATIVE NEGATIVE Urine Propoxyphene Screen NEGATIVE NEGATIVE Urine Barbiturates Screen NEGATIVE NEGATIVE Ur Tricyclic Antidepressants Screen NEGATIVE NEGATIVE Urine Phencyclidine Screen NEGATIVE NEGATIVE Urine Amphetamines Screen NEGATIVE NEGATIVE Urine Methamphetamines Screen NEGATIVE NEGATIVE Urine Benzodiazepines Screen NEGATIVE NEGATIVE Urine Cocaine Screen NEGATIVE NEGATIVE Urine Cannabinoids Screen POSITIVE H NEGATIVE Micro Results Microbiology 07/13/21 Blood Culture - Final, Complete No growth 07/13/21 Blood Culture - Final, Complete No growth My Orders Orders - JACE GUAMAN MD Ua Culture If Indicated (07/13/21 09:44) Cbc With Automated Diff (07/13/21 09:44) Comprehensive Metabolic Panel (07/13/21 09:44) Alcohol (07/13/21 09:44) Drug Screen Stat (Urine) (07/13/21 09:44) Acetaminophen (07/13/21 09:44) Salicylate (07/13/21 09:44) Ekg Tracing (07/13/21 09:44) Monitor-Rhythm Ecg Trace Only (07/13/21 09:44) Ed Iv/Invasive Line Start (07/13/21 09:44) Ns Iv 1000 Ml (Sodium Chloride 0.9%) (07/13/21 09:45) Ct Abdomen/Pelvis W (07/13/21 09:44) Lipase (07/13/21 09:44) Iohexol Injection (Omnipaque 350 Mg/Ml 1 (07/13/21 10:30) Ns (Ivpb) (Sodium Chloride 0.9% Ivpb Bag (07/13/21 10:30) Famotidine Injection (Pepcid Injection) (07/13/21 10:23) Ceftriaxone 1 Gm Pre-Mix (Rocephin 1 Gm (07/13/21 11:35) Blood Culture (07/13/21 11:35) Hydromorphone Injection (Dilaudid Inject (07/13/21 11:45) Lidocaine/Epi Mpf 2% 1:200,000 (Xylocain (07/13/21 12:15) Medications Given in ED Vital Signs/I&O Progress Progress Note : Progress Note 1. ACUTE APPENDICITIS: - CT ABD: see report - Labs - UDS/ UA - s. ETOH - NS IVF/ Pepcid iv - Ceftriaxone 1gm iv STAT/ Dilaudid 1mg iv - Surgery consult contacted. Will go to day surgery 2. ANXIETY : - Pt stopped taking his Ativan last Monday, which he was on 1mg TID , for the past year Diagnostic Imaging Diagonstic Imaging: CT Plain Films/CT/US/NM/MRI: abdomen Comments [facility]. [place], [place] NAME: DIONNE NORMAN [facility] REC#: [id number] PT STATUS: REG ER : 1990 PHYSICIAN: JACE GUAMAN MD ADMIT DATE: 07/13/21/ER Draft Date of Exam:07/13/21 CT ABDOMEN/PELVIS W EXAMINATION: CT abdomen and pelvis with intravenous contrast. TECHNIQUE: Multiple contiguous axial images were obtained through the abdomen and pelvis after the uneventful administration of intravenous contrast. All CT scans use one or more of the following dose optimizing techniques: automated exposure control, MA and/or KvP adjustment based on patient size and exam type or iterative reconstruction. HISTORY: Right lower quadrant abdominal pain. COMPARISON: 08/08/2020. FINDINGS: The heart is unremarkable. The included lung bases are clear. There is atrophy of the distal pancreas. No focal pancreatic lesions are seen. No peripancreatic inflammatory changes. No pancreatic ductal dilation. There is hepatic steatosis. No focal hepatic lesions. The portal vein is patent. The gallbladder is unremarkable. The spleen, adrenal glands, and kidneys have a normal appearance. There is no pathologically enlarged mesenteric or retroperitoneal adenopathy. The bowel loops are nondilated. There is suggestion of fatty infiltration of the majority of the colon wall. The appendix is dilated and measures 0.9 cm. No periappendicular fat stranding is seen. There is no free fluid or free air. No acute osseous abnormalities. Ureters and bladder are grossly normal. There is no free air, loculated collection, or adenopathy in the pelvis. IMPRESSION: 1. Prominent appendix without periappendiceal fat stranding. Findings are somewhat indeterminate and may represent early uncomplicated acute appendicitis. Recommend continued follow-up as indicated. 2. Fatty infiltration throughout the colon wall, suggestive of prior inflammatory changes. No evidence of acute colitis. 3. Hepatic steatosis. No focal hepatic lesions. 4. Atrophy of the pancreas. No periappendicular fat stranding or focal pancreatic lesions. Dictated on workstation # [id number] Dict: 07/13/21 1116 Trans: 07/13/21 1125 BANNER [id number] Interpreted by: SALINA MARCIAL DO Electronically signed by: Departure Communication (Admissions) Time/Spoke to Consulting Phy: 11:[address] Mcarthur, will consult in ER Impression Primary Impression: Acute appendicitis Qualified Codes: K35.80 - Unspecified acute appendicitis Additional Impression: Anxiety Disposition: 30 STILL A PATIENT Condition: Stable Departure-Patient Inst. Referrals: BRAXTON CALIX MD (PCP/Family) Primary Care Physician Scripts Tramadol HCl (Tramadol HCl) 50 Mg Tablet 50 MG PO Q4H PRN for PAIN-MODERATE (5-7), #20 TAB Prov: ARYA MCARTHUR DO 07/13/21 JACE GUAMAN MD July 13, 2021 09:38
[2021-07-13] MEDS ORDERED: NS IV 1000 ML 1,000 ML IV SCH (09:45)
[2021-07-13 10:06] LABS: BASOPHILS # (AUTO) 0.1 10^3/uL (0.0-0.1); BASOPHILS % (AUTO) 0 % (0-10); EOSINOPHILS % (AUTO) 0 % (0-10); HEMATOCRIT 48 % (40-54); HEMOGLOBIN 17.4 g/dL (13.3-17.7); LYMPHOCYTES # (AUTO) 1.5 10^3/uL (1.0-4.0); LYMPHOCYTES % (AUTO) 12 % (12-44); MEAN CORPUSCULAR HEMOGLOBIN 34 pg (25-34); MEAN CORPUSCULAR HGB CONC 36 g/dL (32-36); MEAN CORPUSCULAR VOLUME 94 fL (80-99); MEAN PLATELET VOLUME 10.1 fL (9.0-12.2); MONOCYTES # (AUTO) 0.8 10^3/uL (0.0-1.0); MONOCYTES % (AUTO) 6 % (0-12); NEUTROPHILS # (AUTO) 10.4 10^3/uL (1.8-7.8); NEUTROPHILS % (AUTO) 81 % (42-75); PLATELET COUNT 260 10^3/uL (130-400); WHITE BLOOD COUNT 12.9 10^3/uL (4.3-11.0)
[2021-07-13 10:12] LABS: ALBUMIN 4.7 GM/DL (3.2-4.5); CHLORIDE 96 MMOL/L (98-107); SODIUM 137 MMOL/L (135-145)
[2021-07-13 10:13] LABS: CALCIUM 10.2 MG/DL (8.5-10.1)
[2021-07-13 10:14] LABS: GLUCOSE 86 MG/DL (70-105)
[2021-07-13 10:15] LABS: CARBON DIOXIDE 17 MMOL/L (21-32); POTASSIUM 4.5 MMOL/L (3.6-5.0); TOTAL PROTEIN 8.2 GM/DL (6.4-8.2)
[2021-07-13 10:16] LABS: BILIRUBIN,TOTAL 1.3 MG/DL (0.1-1.0)
[2021-07-13 10:18] LABS: ALKALINE PHOSPHATASE 78 U/L (40-136); CREATININE SERUM 0.82 MG/DL (0.60-1.30); GFR ESTIMATED 123
[2021-07-13 10:19] LABS: BUN/CREATININE RATIO 12
[2021-07-13 10:21] LABS: ALANINE AMINOTRANSFERASE 125 U/L (0-55); SALICYLATE < 5.0 MG/DL (5.0-20.0)
[2021-07-13 10:22] LABS: LIPASE 54 U/L (8-78)
[2021-07-13] MEDS ORDERED: FAMOTIDINE 20MG/2ML IV (PEPCID) IV STA (10:23)
[2021-07-13 10:24] LABS: ACETAMINOPHEN < 10 UG/ML (10-30)
[2021-07-13] MEDS ORDERED: IOHEXOL 350 MG/ML 100 ML (OMNIPAQUE 350) VIAL IV ONE (10:30)
[2021-07-13] MEDS ORDERED: NS 100 ML (IVPB) BAG IV ONE (10:30)
--- NOTE | 2021-07-13 11:25 | Diagnostic Imaging Report ---
EXAMINATION: CT abdomen and pelvis with intravenous contrast. TECHNIQUE: Multiple contiguous axial images were obtained through the abdomen and pelvis after the uneventful administration of intravenous contrast. All CT scans use one or more of the following dose optimizing techniques: automated exposure control, MA and/or KvP adjustment based on patient size and exam type or iterative reconstruction. HISTORY: Right lower quadrant abdominal pain. COMPARISON: 08/08/2020. FINDINGS: The heart is unremarkable. The included lung bases are clear. There is atrophy of the distal pancreas. No focal pancreatic lesions are seen. No peripancreatic inflammatory changes. No pancreatic ductal dilation. There is hepatic steatosis. No focal hepatic lesions. The portal vein is patent. The gallbladder is unremarkable. The spleen, adrenal glands, and kidneys have a normal appearance. There is no pathologically enlarged mesenteric or retroperitoneal adenopathy. The bowel loops are nondilated. There is suggestion of fatty infiltration of the majority of the colon wall. The appendix is dilated and measures 0.9 cm. No periappendicular fat stranding is seen. There is no free fluid or free air. No acute osseous abnormalities. Ureters and bladder are grossly normal. There is no free air, loculated collection, or adenopathy in the pelvis. IMPRESSION: 1. Prominent appendix without periappendiceal fat stranding. Findings are somewhat indeterminate and may represent early uncomplicated acute appendicitis. Recommend continued follow-up as indicated. 2. Fatty infiltration throughout the colon wall, suggestive of prior inflammatory changes. No evidence of acute colitis. 3. Hepatic steatosis. No focal hepatic lesions. 4. Atrophy of the pancreas. No periappendicular fat stranding or focal pancreatic lesions. Dictated by: Dictated on workstation # [id number]
[2021-07-13 11:27] LABS: CLARITY,URINE CLEAR; COLOR,URINE YELLOW; GLUCOSE, URINE (UA) NEGATIVE (NEGATIVE); KETONES,URINE 3+ (NEGATIVE); LEUKOCYTE ESTERASE ,URINE NEGATIVE (NEGATIVE); NITRITE,URINE NEGATIVE (NEGATIVE); PROTEIN,URINE 3+ (NEGATIVE)
[2021-07-13] MEDS ORDERED: cefTRIAXone 1 GM PRE-MIX 50 ML IV STA (11:35)
[2021-07-13] MEDS ORDERED: HYDROmorphone 2 MG/ML VIAL (DILAUDID) IV ONE ×2 (11:45→14:00)
[2021-07-13 11:47] LABS: AMPHETAMINE SCREEN, URINE NEGATIVE (NEGATIVE); BARBITURATE SCREEN URINE NEGATIVE (NEGATIVE); BENZODIAZEPINES SCREEN URINE NEGATIVE (NEGATIVE); CANNABINOID SCREEN, URINE POSITIVE (NEGATIVE); COCAINE SCREEN URINE NEGATIVE (NEGATIVE); OPIATE SCREEN URINE NEGATIVE (NEGATIVE); TRICYCLIC ANTIDEPRESSANTS SCRE NEGATIVE (NEGATIVE)
[2021-07-13 11:48] LABS: METHADONE STAT NEGATIVE (NEGATIVE); OXYCODONE STAT NEGATIVE (NEGATIVE); PROPOXYPHENE STAT NEGATIVE (NEGATIVE)
[2021-07-13 12:00] LABS: AMORPHOUS SEDIMENT,UR RARE AMOR URATES /LPF; BACTERIA,URINE NEGATIVE /HPF; BILIRUBIN,URINE NEGATIVE (NEGATIVE); RBC,URINE 0-2 /HPF; SQUAMOUS EPITHELIAL CELL,UR 0-2 /HPF; WBC,URINE 0-2 /HPF
[2021-07-13] MEDS ORDERED: LIDOCAINE/EPI 2% 1:200,00 (XYLOCAINE) 20 ML VIAL ONE (12:15)
--- NOTE | 2021-07-13 12:50 | Consultation - Surgery ---
History of Present Illness History of Present Illness Patient Consulted On(andrea/time) 07/13/21 12:44 Time Seen by Provider: 12:34 History of Present Illness Surgery asked to consult regarding Appendicitis HPI per ED: 29-year-old male with PMH of anxiety on chronic lorazepam use over the past 1 year with dosages of 1 mg 3 times daily, is here with complaints of anxiety and abdominal pain which began about 2 days ago. Patient stopped taking his lorazepam last Monday because he felt he was becoming addicted to the lorazepam. 2 days ago patient started having abdominal pain which has caused him not to feel well and also has not been eating due to the pain. Denies fever, chills, diarrhea, constipation, vomiting, headache, chest pain, shortness of breath. Patient has had some associated nausea. When I spoke to pt he stated he has had pancreatitis before, but this was a totally different pain; "it was on the opposite side". He states he hasn't been able to eat "for like 5 days". Pain radiates down into right side. Describes sharp, constant pain tht is rated as 6 out of 10. Nothing makes pain better and movement makes it worse. Allergies and Home Medications Allergies Coded Allergies: acetaminophen (Verified Allergy, Unknown, 08/08/20) codeine (Verified Allergy, Unknown, 08/08/20) Patient Home Medication List Home Medication List Reviewed: Yes Lorazepam (Ativan) 1 Mg Tablet, 1 MG PO TID, (Reported) Entered as Reported by: JOEY RIDDLE on 08/10/20817 Meloxicam (Meloxicam) 15 Mg Tablet, 15 MG PO DAILY PRN for PAIN-BREAKTHROUGH, (Reported) Entered as Reported by: JOEY RIDDLE on 08/10/20817 Past Awugmgy-Onbfno-Zahuaj Hx Patient Social History Drug of Choice: MARIJUANA, history meth/heroin Smoking Status: Light Tobacco Smoker Type Used: Cigarettes, Electronic/Vapor 2nd Hand Smoke Exposure: Yes Recent Hopitalizations: No Alcohol Use?: Yes Substance type: Marijuana Have you traveled recently?: No Immunizations Up To Date Tetanus Booster (TDap): Less than 5yrs PED Vaccines UTD: Yes Date of Influenza Vaccine: Nov 14, 2019 Seasonal Allergies Seasonal Allergies: No Surgeries History of Surgeries: Yes (abdominal drains for pancreatic process) Surgeries: Abdominal, Tonsillectomy Respiratory History of Respiratory Disorde: Yes Respiratory Disorders: Asthma Cardiovascular History of Cardiac Disorders: No Neurological History of Neurological Disord: No Reproductive System Hx Reproductive Disorders: No Sexually Transmitted Disease: No Genitourinary History of Genitourinary Disor: No Gastrointestinal History of Gastrointestinal Di: Yes Gastrointestinal Disorders: Pancreatitis Musculoskeletal History of Musculoskeletal Dis: No Endocrine History of Endocrine Disorders: No HEENT History of HEENT Disorders: No Cancer History of Cancer: No Psychosocial History of Psychiatric Problem: Yes (Daily alcohol use) Behavioral Health Disorders: Anxiety Integumentary History of Skin or Integumenta: No Blood Transfusions History of Blood Disorders: No Family Medical History Significant Family History: Hypertension (parents) Review of Systems-General Constitutional: No chills, No diaphoresis; malaise, weakness EENTM: No blurred vision, No double vision, No mouth swelling, No epistaxis Respiratory: No cough, No dyspnea on exertion, No hemoptysis, No short of breath Cardiovascular: No chest pain, No palpitations Gastrointestinal: RLQ, abdominal pain, loss of appetite; No nausea, No vomiting Genitourinary: No dysuria, No frequency, No hematuria Musculoskeletal: No joint pain, No joint swelling Skin: No change in color, No change in hair/nails Psychiatric/Neurological: Anxiety; Denies Depressed, Denies Seizure, Denies Tremors Physical Exam-General Problems Physical Exam Vital Signs Vital Signs - First Documented 07/13/21 09:32 Temp 36.0 Pulse 121 Resp 20 B/P (MAP) 184/127 (146) Pulse Ox 96 O2 Delivery Room Air Capillary Refill : Less Than 3 Seconds General Appearance: WD/WN, mild distress Eyes: Bilateral Eye PERRL, Bilateral Eye EOMI HEENT: pharynx normal; No scleral icterus (R), No scleral icterus (L) Neck: non-tender, full range of motion, supple Respiratory: chest non-tender, lungs clear, normal breath sounds, no respiratory distress, no accessory muscle use Cardiovascular: no murmur, tachycardia Gastrointestinal: soft, no organomegaly, guarding (voluntary), tenderness (RLQ), hernia (umbilical) Rectal: deferred Back: no CVA tenderness, no vertebral tenderness Extremities: non-tender, no pedal edema, no calf tenderness Neurologic/Psychiatric: travel journalist II-XII nml as tested, no motor/sensory deficits, alert, normal mood/affect, oriented x 3 Skin: normal color, warm/dry Lymphatic: no adenopathy (neck, axilla or groin) Data Review Labs Laboratory Tests 07/13/21 09:54: White Blood Count 12.9H, Red Blood Count 5.11, Hemoglobin 17.4, Hematocrit 48, Mean Corpuscular Volume 94, Mean Corpuscular Hemoglobin 34, Mean Corpuscular Hemoglobin Concent 36, Red Cell Distribution Width 12.8, Platelet Count 260, Mean Platelet Volume 10.1, Immature Granulocyte % (Auto) 1, Neutrophils (%) (Auto) 81H, Lymphocytes (%) (Auto) 12, Monocytes (%) (Auto) 6, Eosinophils (%) (Auto) 0, Basophils (%) (Auto) 0, Neutrophils # (Auto) 10.4H, Lymphocytes # (Auto) 1.5, Monocytes # (Auto) 0.8, Eosinophils # (Auto) 0.0, Basophils # (Auto) 0.1, Immature Granulocyte # (Auto) 0.1, Sodium Level 137, Potassium Level 4.5, Chloride Level 96L, Carbon Dioxide Level 17L, Anion Gap 24H, Blood Urea Nitrogen 10, Creatinine 0.82, Estimat Glomerular Filtration Rate 123, BUN/Creatinine Ratio 12, Glucose Level 86, Calcium Level 10.2H, Corrected Calcium , Total Bilirubin 1.3H, Aspartate Amino Transf (AST/SGOT) 122H, Alanine Aminotransferase (ALT/SGPT) 125H, Alkaline Phosphatase 78, Total Protein 8.2, Albumin 4.7H, Lipase 54, Salicylates Level < 5.0L, Acetaminophen Level < 10L, Serum Alcohol < 10 07/13/21 11:19: Urine Color YELLOW, Urine Clarity CLEAR, Urine pH 6.0, Urine Specific [place] 1.025H, Urine Protein 3+H, Urine Glucose (UA) NEGATIVE, Urine Ketones 3+H, Urine Nitrite NEGATIVE, Urine Bilirubin NEGATIVE, Urine Urobilinogen 1.0, Urine Leukocyte Esterase NEGATIVE, Urine RBC (Auto) TRACE-IH, Urine RBC 0-2, Urine WBC 0-2, Urine Squamous Epithelial Cells 0-2, Urine Crystals PRESENTH, Urine Amorphous Sediment RARE OSCAR URATESH, Urine Bacteria NEGATIVE, Urine Casts NONE, Urine Mucus NEGATIVE, Urine Culture Indicated NO, Urine Opiates Screen NEGATIVE, Urine Oxycodone Screen NEGATIVE, Urine Methadone Screen NEGATIVE, Urine Propoxyphene Screen NEGATIVE, Urine Barbiturates Screen NEGATIVE, Ur Tricyclic Antidepressants Screen NEGATIVE, Urine Phencyclidine Screen NEGATIVE, Urine Amphetamines Screen NEGATIVE, Urine Methamphetamines Screen NEGATIVE, Urine Benzodiazepines Screen NEGATIVE, Urine Cocaine Screen NEGATIVE, Urine Cannabinoids Screen POSITIVEH Radiology Date of Exam:07/13/21 CT ABDOMEN/PELVIS W EXAMINATION: CT abdomen and pelvis with intravenous contrast. TECHNIQUE: Multiple contiguous axial images were obtained through the abdomen and pelvis after the uneventful administration of intravenous contrast. All CT scans use one or more of the following dose optimizing techniques: automated exposure control, MA and/or KvP adjustment based on patient size and exam type or iterative reconstruction. HISTORY: Right lower quadrant abdominal pain. COMPARISON: 08/08/2020. FINDINGS: The heart is unremarkable. The included lung bases are clear. There is atrophy of the distal pancreas. No focal pancreatic lesions are seen. No peripancreatic inflammatory changes. No pancreatic ductal dilation. There is hepatic steatosis. No focal hepatic lesions. The portal vein is patent. The gallbladder is unremarkable. The spleen, adrenal glands, and kidneys have a normal appearance. There is no pathologically enlarged mesenteric or retroperitoneal adenopathy. The bowel loops are nondilated. There is suggestion of fatty infiltration of the majority of the colon wall. The appendix is dilated and measures 0.9 cm. No periappendicular fat stranding is seen. There is no free fluid or free air. No acute osseous abnormalities. Ureters and bladder are grossly normal. There is no free air, loculated collection, or adenopathy in the pelvis. IMPRESSION: 1. Prominent appendix without periappendiceal fat stranding. Findings are somewhat indeterminate and may represent early uncomplicated acute appendicitis. Recommend continued follow-up as indicated. 2. Fatty infiltration throughout the colon wall, suggestive of prior inflammatory changes. No evidence of acute colitis. 3. Hepatic steatosis. No focal hepatic lesions. 4. Atrophy of the pancreas. No periappendicular fat stranding or focal pancreatic lesions. Dictated by: Dictated on workstation # [id number] Dict: 07/13/21 1116 Trans: 07/13/21 1129 [facility] [id number] Interpreted by: SALINA MARCIAL DO Electronically signed by: SALINA MARCIAL DO 07/13/21 1129 Assessment/Plan Assessment/Plan Assessment/Plan Acute Appendicitis Pt had a CT which indicates probably early appendicitis, he has had pain for at least 2 days and has an elevated WBC. I believe he would benefit from taking his appendix out. We discussed the surgery plus risks and complications not limited to pain, bleeding, infection, scar, damage to bowel and need for further surgery. All questions answered to his satisfaction. He has been NPO, IV fluids are started, IV ABX master control technician to OR and pain control as needed. Will get a consent for Laparoscopic Appendectomy, possible open. Hopefully if it doesn't look to bad in his abdomen, we can send him home today. ARYA MCARTHUR DO July 13, 2021 12:50
[2021-07-13] MEDS ORDERED: fentaNYL INJ 100 MCG/2 ML AMP ONE (13:02)
[2021-07-13] MEDS ORDERED: ONDANSETRON 4 MG/2 ML (SDV) Z0FRAN ONE (13:02)
[2021-07-13] MEDS ORDERED: proPOfol 200 MG/20 ML (DIPRIVAN) VIAL IV ONE (13:02)
[2021-07-13] MEDS ORDERED: SEVOFLURANE (ULTANE) 15 ML INHAL SOLN ONE ×2 (13:02→13:42)
[2021-07-13] MEDS ORDERED: MIDAZOLAM 2 MG/2 ML (VERSED) VIAL ONE (13:02)
[2021-07-13] MEDS ORDERED: LIDOCAINE PF 2% 5 ML (XYLOCAINE) VIAL ONE (13:02)
[2021-07-13] MEDS ORDERED: SUCCINYLCHOLINE INJ 20 MG/1 ML 10 ML VIAL ONE (13:03)
[2021-07-13] MEDS: LACTATED RINGERS 1,000 ML IV PRN ×2 (13:03→14:16)
[2021-07-13] MEDS ORDERED: NEOSTIGMINE 3 MG/3 ML VIAL ONE (13:41)
[2021-07-13] MEDS ORDERED: GLYCOPYRROLATE 0.2 MG/ML (ROBINUL) 2 ML VIAL ONE (13:41)
[2021-07-13] MEDS ORDERED: ROCURONIUM 50 MG/5 ML (ZEMURON) VIAL IV ONE (13:42)
[2021-07-13] MEDS ORDERED: LABETALOL HCL 20 MG/4 ML VIAL ONE (13:58)
[2021-07-13] MEDS ORDERED: ONDANSETRON 4 MG/2 ML (SDV) Z0FRAN IVP PRN (14:00)
[2021-07-13] MEDS: LABETALOL HCL 20 MG/4 ML VIAL IV PRN ×2 (14:05→14:23)
--- NOTE | 2021-07-13 14:12 | Anesthesia-General Post-Op ---
General Patient Condition Mental Status/LOC: Same as Preop Cardiovascular: Satisfactory Nausea/Vomiting: Absent Respiratory: Satisfactory Pain: Controlled Complications: Absent Post Op Complications Complications None Follow Up Care/Instructions Patient Instructions None needed. Anesthesia/Patient Condition Patient Condition Patient is doing well, no complaints, stable vital signs, no apparent adverse anesthesia problems. No complications reported per nursing. [place]C [place] [facility] [place]: Yes RUTH CORNELL CRNA July 13, 2021 14:12
--- NOTE | 2021-07-13 14:33 | Progress Note-Post Operative ---
Post-Operative Progess Note Surgeon (s)/Nursing Consultant (s) Surgeon ARYA MCARTHUR DO Nursing Consultant: none Pre-Operative Diagnosis Acute appy Post-Operative Diagnosis same pending path Procedure & Operative Findings Date of Procedure 07/13/21 Procedure Performed/Findings PROCEDURE: Laparoscopic appendectomy. COMPLICATIONS: None. INDICATIONS: The patient is a 30 year old male who has been having right lower quadrant abdominal pain. Patient's exam consistent with appendicitis. I discussed risk and benefits of laparoscopic appendectomy and all indicated procedures with the possibility being a normal appendix. The patient understands the risks and benefits and wishes to proceed. Consent was signed on the chart. DESCRIPTION OF PROCEDURE: The patient was taken to the operating suite, prepped and draped in a sterile fashion. Timeout was performed. Local anesthetic was infiltrated just above the umbilicus and a #11-blade scalpel was used to make a skin incision. Cautery was used to dissect down to the fascia and scored. Kochers were used to grasp and elevate the fascia and the abdomen was then entered. A 0 Vicryl was placed in a [id number] fashion for closure at the end of the case. The balloon trocar was inserted into the abdomen and pneumoperitoneum was achieved. Under direct visualization of the laparoscope, a 5 mm trocar was placed in the suprapubic region and a 5 mm trocar was placed in the left lower quadrant. Appendix was located, it was thickened and injected. The mesoappendix was then divided with a Ligasure in a stepwise fashion down to the base of the appendix. Once at the base an Endo-MANFRED 2.5 stapler was then fired across the base of the appendix. It was then placed in an Endobag and removed through the 12 mm trocar site. The abdomen was then irrigated and suctioned. No other pathology noted. The abdomen was then desufflated and the trocars were removed. The 0 Vicryl placed at the beginning of the case was then tied closing the 12 mm fascial defect. The skin was then closed using 4-0 Monocryl in a subcuticular fashion. The abdomen was then washed and dried and Skin Affix was placed over the incisions. The patient tolerated the procedure well without any complications and was taken to the recovery room in stable condition. Anesthesia Type GET Estimated Blood Loss Estimated blood loss (mL): scant Specimens/Packing Specimens Removed ARYA Matute July 13, 2021 14:33
[2021-07-13] MEDS ORDERED: TRM50T PO (14:35)
--- NOTE | 2021-07-13 14:36 | Discharge Inst-Surgical ---
Discharge Inst-Surgical Depart Medication/Instructions New, Converted or Re-Newed RX: Transmitted to Pharmacy Patient Instructions Follow up Appt: Make appointment for 1 week. [phone] Instructions: No lifting greater than 20 pounds. No strenuous activity. May shower in 24 hours, no tub bath or soaking. Use incentive spirometer at home as directed. No Smoking Skin/Wound Care: May remove bandages in am. You need to leave the Dermabond on incision it will fall off on it's own. Symptoms to Report: Appetite Changes, Extremity Discoloration, Numbness/Tingling, Swelling Increased, Bleeding Excessive, Eyesight Changes, Pain Increased, Urine Color Change, Constipation(Persistent), Fever over 101 degree F, Pain/Pressure in chest, Urinating Difficulty, Cough Up/Vomit Blood, Heart Beat Irreg/Pounding, Pain/Pressure in jaw, Cramps in feet or legs, Lightheadedness, Pain/Pressure in shoulder, Diarrhea(Persistent), Memory Changes Suddenly, Questions/Concerns, Weight gain consecutive days, Dizziness/Fainting, Nausea/Vomiting, Shortness of Breath, Weight gain over 2 pounds If questions or concerns contact your physician Or seek help at emergency department. Activity Activity as Tolerated: Yes Driving Instructions: No Driving/Refer to Dr. Boogie Discharge Diet: No Restrictions Diet After 24 Hours: Clear Liquid if Nauseous If Any Problems/Questions/Issu: Contact Your Physician, Go to Emergency Room Skin/Wound Care Infection Signs and Symptoms: Increased Redness, Foul Odor of Wound, Increased Drainage, Skin Itchy or Has a Rash, Increased Swelling, Temperature Above 101 F Wound Care Comment: heating pad to shoulder or neck tonight for pain Bathing Instructions: Shower Stitches/Steve/Dermabond Dis: Dermabond ARYA MCARTHUR DO July 13, 2021 14:36
== END 2021-07-13 16:00 | disposition home or self-care (01) ==
LOC: EDUNIT# 09:25 → ER 09:27 → SDC 12:43
PROVIDERS: ATTEND Surgery
DX: K38.8 Other specified diseases of appendix (principal); F41.9 Anxiety disorder, unspecified; T42.4X6A Underdosing of benzodiazepines, initial encounter; Z91.128 Patient's intentional underdosing of medication regimen for other reason; F17.210 Nicotine dependence, cigarettes, uncomplicated; F17.290 Nicotine dependence, other tobacco product, uncomplicated; Z88.5 Allergy status to narcotic agent; Z88.6 Allergy status to analgesic agent; Z88.8 Allergy status to other drugs, medicaments and biological substances
CPT/HCPCS: 44970; 74177; 80053; 80306; 81000; 83690; 85025; 87040; 93005; 93041; 99285; G0480 ×3; 36415; 80320; 80329; 96374; 96375

== ENCOUNTER 2021-08-16 21:32 | Emergency (ER) | payer SELFPAY ==
[~2021-08-16] VITALS: Ht 180.3 cm; Wt 92.9 kg
[~2021-08-16 21:32] MED LIST changes: +TRM50T PO
[2021-08-16] MEDS ORDERED: LACTATED RINGERS 1,000 ML IV ONE ×2 (22:00→23:00)
[2021-08-16] MEDS ORDERED: PANTOPRAZOLE 40 MG (PROTONIX) VIAL IV ONE (22:00)
[2021-08-16] MEDS ORDERED: ONDANSETRON 4 MG/2 ML (SDV) Z0FRAN IVP ONE (22:00)
--- NOTE | 2021-08-16 22:00 | ED GI ---
General Stated Complaint: VOMITING BLOOD Source of Information: Patient History of Present Illness Date Seen by Provider: Aug 16, 2021 Time Seen by Provider: 21:43 Initial Comments PT ARRIVES VIA POV FROM HOME C/O "SEVERE UPPER STOMACH PAIN" X 3 DAYS, ALONG WITH NAUSEA AND VOMITING STATES HE "CAN'T KEEP ANYTHING DOWN EXCEPT WATER" STATES HE VOMITS "MOSTLY BILE AND WATER", AND TODAY HE HAD TINGES OF BLOOD MIXED WITH EMESIS STATES HE HAS VOMITED X 3 TODAY HAD DIARRHEA X 1 --3 DAYS AGO, NO BM SINCE THEN STATES HE IS URINATING BUT NOT MUCH, LAST VOID 2 HOURS AGO NO FEVER HAD A COUGH 3 DAYS AGO, IS ALMOST GONE NOW NO URI SYMPTOMS OR SORE THROAT OR LOSS OF TASTE OR SMELL NO HEADACHE NO BODY ACHES TOOK NYQUIL X 1 DOSE--3 DAYS AGO HAS NOT TAKEN ANYTHING FOR SYMPTOMS SINCE THEN PT STATES HE HAD APPENDECTOMY 06/2021 STATES A FEW YEARS AGO ( ACTUALLY 12/2019) , HE HAD PANCREATITIS AND WAS TRANSFERRED TO [facility] IN AND HAD SEVERAL SURGERIES RELATED TO THAT, BUT DOES NOT KNOW EXACTLY WHAT KIND OF SURGERIES HE HAD DONE--DRAINS WERE PLACED FOR PANCREATIC PSEUDOCYST. PT STATES HE DRINKS AT LEAST 3 TIMES A WEEK, AND DRINKS ABOUT 3 DRINKS A NIGHT. USED TO DRINK HEAVIER, IN THE PAST STATES HE HAS NOT HAD ANY ALCOHOL FOR 5 DAYS PT HAS HISTORY OF IV HEROIN AND IV METH USE. CLAIMS NONE FOR 3 YEARS, STILL SMOKES MARIJUANA ON DAILY BASIS, BUT STATES NONE FOR 3-4 DAYS SMOKES 1 PPD STATES HE HAS TESTED NEGATIVE FOR HEPATITIS AND HIV IN THE PAST PT HAS HAD COVID VACCINE X 2--IN MAY AND JUNE 2020. NO BOOSTER PCP: ILDA BEAVER. Allergies and Home Medications Allergies Coded Allergies: acetaminophen (Verified Allergy, Unknown, 08/08/20) codeine (Verified Allergy, Unknown, 08/08/20) Patient Home Medication List Home Medication List Reviewed: Yes Meloxicam (Meloxicam) 15 Mg Tablet, 15 MG PO DAILY PRN for PAIN-BREAKTHROUGH, (Reported) Entered as Reported by: JOEY RIDDLE on 08/10/20 0818 Metoclopramide HCl (Reglan) 10 Mg Tablet, 10 MG PO Q6H Prescribed by: BULMARO JONSE on 08/17/21 0030 Ondansetron (Ondansetron Odt) 8 Mg Tab.rapdis, 8 MG PO Q6H Prescribed by: BULMARO JONES on 08/17/2129 Pantoprazole Sodium (Protonix) 40 Mg Tablet.dr, 40 MG PO DAILY Prescribed by: BULMARO JONES on 08/17/2129 Sucralfate (Carafate) 1 Gram Tablet, 1 GM PO QID Prescribed by: BULMARO JONSE on 08/17/2129 Tramadol HCl (Tramadol HCl) 50 Mg Tablet, 50 MG PO Q4H PRN for PAIN-MODERATE (5- 7) Prescribed by: ARYA MCARTHUR on 07/13/21 1435 Review of Systems Review of Systems Constitutional: no symptoms reported EENTM: No Symptoms Reported Respiratory: See HPI, Cough; Denies Shortness of Air Cardiovascular: No Symptoms Reported; Denies Chest Pain Gastrointestinal: See HPI, Abdominal Pain, Diarrhea, Nausea, Poor Appetite, Poor Fluid Intake, Vomiting Genitourinary: See HPI Musculoskeletal: no symptoms reported Skin: no symptoms reported Psychiatric/Neurological: No Symptoms Reported Endocrine: No Symptoms Reported Hematologic/Lymphatic: No Symptoms Reported Past [id number] Hx Patient Social History Tobacco Use?: Yes Tobacco type used: Cigarettes Smoking Status: Current Everyday Smoker Substance use?: Yes Substance type: Methamphetamine, Marijuana, Other Alcohol Use?: Yes Alcohol type: Beer, Hard Liquor Alcohol Frequency: Daily Immunizations Up To Date Tetanus Booster (TDap): Less than 5yrs PED Vaccines UTD: Yes First/Initial COVID19 Vaccinat: May Second COVID19 Vaccination Eme[place]: JUNE 27 Seasonal Allergies Seasonal Allergies: No Past Medical History Surgery/Hospitalization HX: PMH;HX PANCREATITIS AND ANXIETY. SURGERY;TONSILECTOMY. Surgeries: Yes (abdominal drains for pancreatic process) Abdominal, Appendectomy, Tonsillectomy Respiratory: Yes Asthma Cardiac: No Neurological: No Reproductive Disorders: No Sexually Transmitted Disease: No Genitourinary: No Gastrointestinal: Yes Pancreatitis Musculoskeletal: No Endocrine: No HEENT: No Cancer: No Psychosocial: Yes (POLYSUBSTANCE ABUSE--DRUGS + ALCOHOL) Anxiety Integumentary: No Blood Disorders: No Family Medical History Hypertension SOCIAL HISTORY: -SMOKES 1 PPD -ETOH--HISTORY OF HEAVY USE, NOW CLAIMS HE HAS "CUT BACK" AND ONLY DRINKS ABOUT 3 DRINKS A NIGHT, ABOUT 3 TIMES A WEEK--PER PT ON 08/16/21 --DRUGS-- HISTORY OF IV HEROIN AND IV METH USE. CLAIMS "NONE FOR 3 YEARS"--PER PT ON 08/16/21. STILL SMOKES MARIJUANA ON DAILY BASIS. ALSO HAS HISTORY OF ILLICIT OPIATE USE/ABUSE PAST SURGICAL HISTORY: -APPENDECTOMY 06/2021 -SURGERY FOR PANCREATIC PSEUDOCYST--DRAINS PLACED. DONE AT [facility] IN 12/2019 Physical Exam Vital Signs Vital Signs - First Documented 08/16/21 21:43 Temp 37.0 Pulse 106 Resp 17 B/P (MAP) 142/104 (117) Pulse Ox 97 Capillary Refill : Height/Weight/BMI Height: 5'11" Weight: 165lbs. oz. 74.622644iw; 28.00 BMI Method:Stated General Appearance: other (ANXIOUS, CONSTANT MOVEMENTS OF ENTIRE BODY. DOES NOT APPEAR ILL OR TO BE IN ANY DISTRESS. PT IS BAREFOOT. TALKS NON-STOP AT LENGTH. 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, no motor/sensory deficits, alert, oriented x 3 Skin: normal color, warm/dry Progress/Results/Core Measures Results/Orders Lab Results Laboratory Tests Test 08/16/21 00:17 08/16/21 21:50 Range/Units Urine Color YELLOW Urine Clarity SL CLOUDY Urine pH 6.0 5-9 Urine Specific [place] 1.015 L 1.016-1.022 Urine Protein 3+ H NEGATIVE Urine Glucose (UA) NEGATIVE NEGATIVE Urine Ketones 3+ H NEGATIVE Urine Nitrite NEGATIVE NEGATIVE Urine Bilirubin 2+ H NEGATIVE Urine Urobilinogen 0.2 < = 1.0 MG/DL Urine Leukocyte Esterase NEGATIVE NEGATIVE Urine RBC (Auto) TRACE-I H NEGATIVE Urine RBC 0-2 /HPF Urine WBC NONE /HPF Urine Squamous Epithelial Cells 0-2 /HPF Urine Crystals NONE /LPF Urine Bacteria NEGATIVE /HPF Urine Casts NONE /LPF Urine Mucus NEGATIVE /LPF Urine Culture Indicated NO Urine Opiates Screen NEGATIVE NEGATIVE Urine Oxycodone Screen NEGATIVE NEGATIVE Urine Methadone Screen NEGATIVE NEGATIVE Urine Propoxyphene Screen NEGATIVE NEGATIVE Urine Barbiturates Screen NEGATIVE NEGATIVE Ur Tricyclic Antidepressants Screen NEGATIVE NEGATIVE Urine Phencyclidine Screen NEGATIVE NEGATIVE Urine Amphetamines Screen NEGATIVE NEGATIVE Urine Methamphetamines Screen NEGATIVE NEGATIVE Urine Benzodiazepines Screen POSITIVE H NEGATIVE Urine Cocaine Screen NEGATIVE NEGATIVE Urine Cannabinoids Screen POSITIVE H NEGATIVE White Blood Count 11.3 H 4.3-11.0 10^3/uL Red Blood Count 5.54 H 4.30-5.52 10^6/uL Hemoglobin 18.7 H 13.3-17.7 g/dL Hematocrit 52 40-54 % Mean Corpuscular Volume 94 80-99 fL Mean Corpuscular Hemoglobin 34 25-34 pg Mean Corpuscular Hemoglobin Concent 36 32-36 g/dL Red Cell Distribution Width 12.4 10.0-14.5 % Platelet Count 275 130-400 10^3/uL Mean Platelet Volume 10.1 9.0-12.2 fL Immature Granulocyte % (Auto) 0 % Neutrophils (%) (Auto) 65 42-75 % Lymphocytes (%) (Auto) 22 12-44 % Monocytes (%) (Auto) 11 0-12 % Eosinophils (%) (Auto) 0 0-10 % Basophils (%) (Auto) 0 0-10 % Neutrophils # (Auto) 7.4 1.8-7.8 10^3/uL Lymphocytes # (Auto) 2.5 1.0-4.0 10^3/uL Monocytes # (Auto) 1.3 H 0.0-1.0 10^3/uL Eosinophils # (Auto) 0.0 0.0-0.3 10^3/uL Basophils # (Auto) 0.1 0.0-0.1 10^3/uL Immature Granulocyte # (Auto) 0.0 0.0-0.1 10^3/uL Erythrocyte Sedimentation Rate 7 0-15 MM/HR Sodium Level 136 135-145 MMOL/L Potassium Level 3.6 3.6-5.0 MMOL/L Chloride Level 98 98-107 MMOL/L Carbon Dioxide Level 10 L 21-32 MMOL/L Anion Gap 28 H 5-14 MMOL/L Blood Urea Nitrogen 8 7-18 MG/DL Creatinine 1.36 H 0.60-1.30 MG/DL Estimat Glomerular Filtration Rate 73 BUN/Creatinine Ratio 6 Glucose Level 126 H 70-105 MG/DL Calcium Level 10.3 H 8.5-10.1 MG/DL Corrected Calcium 8.5-10.1 MG/DL Magnesium Level 1.6 1.6-2.4 MG/DL Total Bilirubin 1.1 H 0.1-1.0 MG/DL Aspartate Amino Transf (AST/SGOT) 152 H 5-34 U/L Alanine Aminotransferase (ALT/SGPT) 121 H 0-55 U/L Alkaline Phosphatase 92 40-136 U/L C-Reactive Protein High Sensitivity 1.08 H 0.00-0.50 MG/DL Total Protein 8.7 H 6.4-8.2 GM/DL Albumin 5.3 H 3.2-4.5 GM/DL Amylase Level 76 25-125 U/L Lipase 166 H 8-78 U/L Acetaminophen Level < 10 L 10-30 UG/ML Serum Alcohol < 10 <10 MG/DL Influenza Type A (RT-PCR) Not Detected Not Detecte Influenza Type B (RT-PCR) Not Detected Not Detecte SARS-CoV-2 RNA (RT-PCR) Not Detected Not Detecte My Orders Orders - BULMARO JONES DO Ed Iv/Invasive Line Start (08/16/21 21:51) Monitor-Rhythm Ecg Trace Only (08/16/21 21:51) Acetaminophen (08/16/21 21:51) Alcohol (08/16/21 21:51) Amylase (08/16/21 21:51) Cbc With Automated Diff (08/16/21 21:51) Comprehensive Metabolic Panel (08/16/21 21:51) Hs C Reactive Protein (08/16/21 21:51) Drug Screen Stat (Urine) (08/16/21 21:51) Lipase (08/16/21 21:51) Magnesium (08/16/21 21:51) Ua Culture If Indicated (08/16/21 21:51) Erythrocyte Sedimentation Rate (08/16/21 21:51) Ct Abdomen/Pelvis W (08/16/21 21:51) Ed Iv/Invasive Line Start (08/16/21 21:51) Lactated Ringers (Lr 1000 Ml Iv Solution (08/16/21 22:00) Ondansetron Injection (Zofran Injectio (08/16/21 22:00) Pantoprazole Injection (Protonix Injecti (08/16/21 22:00) Hepatitis Panel Acute (08/16/21 22:28) Hiv 1&2 Antibody (08/16/21 22:28) Iohexol Injection (Omnipaque 350 Mg/Ml 1 (08/16/21 22:30) Sodium Chloride Flush (Catheter Flush Sy (08/16/21 22:30) Ns (Ivpb) (Sodium Chloride 0.9% Ivpb Bag (08/16/21 22:30) Covid 19 Inhouse Test (08/16/21 22:30) Influenza A And B By Pcr (08/16/21 22:30) Isolation Central Supply Req (08/16/21 22:30) Ed Iv/Invasive Line Start (08/16/21 22:55) Lactated Ringers (Lr 1000 Ml Iv Solution (08/16/21 23:00) Lidocaine 2% Viscous 15 Ml (Xylocaine Vi (08/16/21 23:30) Antacid Suspension (Mylanta Suspension (08/16/21 23:30) Metoclopramide Injection (Reglan Injecti (08/16/21 23:45) Diphenhydramine Injection (Benadryl Inje (08/16/21 23:45) Medications Given in ED Current Medications Medications Dose Ordered Sig/Stoney Route Start Time Stop Time Status Last Admin Dose Admin Al Hydrox/Mg Hydrox/Simethicone 30 ml ONCE ONCE PO 08/16/21 23:30 08/16/21 23:31 DC 08/16/21 23:30 30 ML Diphenhydramine HCl 25 mg ONCE ONCE IVP 08/16/21 23:45 08/16/21 23:46 DC 08/16/21 23:44 25 MG Iohexol 100 ml ONCE ONCE IV 08/16/21 22:30 08/16/21 22:31 DC 08/16/21 22:31 100 ML Lactated Ringer's 1,000 ml @ 0 mls/hr Q0M ONCE IV 08/16/21 22:00 08/16/21 22:01 DC 08/16/21 22:05 0 MLS/HR Lactated Ringer's 1,000 ml @ 0 mls/hr Q0M ONCE IV 08/16/21 23:00 08/16/21 23:01 DC 08/16/21 23:30 0 MLS/HR Lidocaine HCl 15 ml ONCE ONCE PO 08/16/21 23:30 08/16/21 23:31 DC 08/16/21 23:30 15 ML Metoclopramide HCl 10 mg ONCE ONCE IVP 08/16/21 23:45 08/16/21 23:46 DC 08/16/21 23:44 10 MG Ondansetron HCl 8 mg ONCE ONCE IVP 08/16/21 22:00 08/16/21 22:01 DC 08/16/21 22:05 8 MG Pantoprazole 40 mg ONCE ONCE IV 08/16/21 22:00 08/16/21 22:01 DC 08/16/21 22:05 40 MG Sodium Chloride 10 ml NEEDED PRN IV 08/16/21 22:30 08/17/21 01:01 DC 08/16/21 22:31 10 ML Sodium Chloride 100 ml ONCE ONCE IV 08/16/21 22:30 08/16/21 22:31 DC 08/16/21 22:31 80 ML Vital Signs/I&O 08/16/21 08/17/21 21:43 00:58 Temp 37.0 Pulse 106 108 Resp 17 18 B/P (MAP) 142/104 (117) 158/112 Pulse Ox 97 100 08/17/21 00:00 Intake Total 1000 ml Balance 1000 ml Progress Progress Note : Progress Note GIVEN IV FLUIDS, ZOFRAN AND PROTONIX VOMITED X 1 DURING ER STAY--CLEAR YELLOW LIQUID NO BLOOD NOTED PT ALSO GIVEN GI COCKTAIL WITH MUCH IMPROVEMENT IN SYMPTOMS PT FEELING MUCH BETTER AT DISMISSAL DISCUSSED ELEVATED BLOOD PRESSURE AND PT STATES THAT HE HAS HAD HIGH BLOOD PRESSURES MULTIPLE TIMES AT DR VISITS, AND HAS BEEN TOLD THAT HE MIGHT NEED BLOOD PRESSURE MEDICATION, BUT STATES HE HAS NEVER BEEN PRESCRIBED ANY. DISCUSSED IMPORTANCE OF FOLLOW UP WITH HIS DR FOR FURTHER EVALUATION OF CURRENT PROBLEM WELL BLOOD PRESSURE. 0040--PT IS ANXIOUS TO GO HOME Diagnostic Imaging Comments CT ABDOMEN/PELVIS--PER RADIOLOGIST REPORT AT 2242 COMPARISON: 07/13/2021. FINDINGS: The heart is unremarkable. The included lung bases are clear. There is hepatic steatosis. Focal fatty sparing is seen along the gallbladder fossa. No focal hepatic lesions. The portal vein is patent. The gallbladder is unremarkable. The spleen, pancreas, adrenal glands, and kidneys have a normal appearance. There is no pathologically enlarged mesenteric or retroperitoneal adenopathy. The bowel loops are nondilated. There is generalized edema throughout the colon with suggestion of fatty infiltration within the bowel wall of the colon. The appendix is surgically absent. There is no free fluid or free air. No acute osseous abnormalities. Ureters and bladder are grossly normal. There is no free air, loculated collection, or adenopathy in the pelvis. IMPRESSION: 1. Edema and fatty replacement throughout the bowel wall of the colon. Findings are suggestive of sequelae of prior pancolitis. This appearance can be seen with inflammatory bowel disease such as ulcerative colitis. No evidence of active inflammation or bowel obstruction. The appendix is surgically absent. 2. Hepatic steatosis. No focal hepatic lesions. Reviewed: Reviewed by Me Departure Impression Primary Impression: Nausea & vomiting Additional Impressions: Epigastric abdominal pain Elevated liver enzymes Chronic alcohol abuse Fatty liver HTN (hypertension) Marijuana use POSSIBLE GASTRITIS Disposition: HOME, SELF-CARE Condition: Improved Departure-Patient Inst. Decision time for Depature: 00:26 Referrals: BRAXTON CALIX MD (PCP/Family) Primary Care Physician Patient Instructions: Abdominal Pain, Adult ED, Alcohol Use Disorder ED, Gastritis (DC), High Blood Pressure ED, Nausea and Vomiting, Adult ED, Ulcer and Gastritis Diet Add. Discharge Instructions: NO ALCOHOL!! NO DRUGS!! CLEAR LIQUIDS--WATER, BROTH, JELLO, GATORADE BRATS DIET--BANANAS, RICE, APPLESAUCE, TOAST, SALTINES FOLLOW UP WITH YOUR DR THIS WEEK FOR FURTHER CARE--CALL IN THE MORNING TO SCHEDULE APPOINTMENT Scripts Sucralfate (Carafate) 1 Gram Tablet 1 GM PO QID, #60 TAB Prov: BULMARO JONES DO 08/17/21 Pantoprazole Sodium (Protonix) 40 Mg Tablet. 40 MG PO DAILY, #15 TAB Prov: BULMARO JONES DO 08/17/21 Metoclopramide HCl (Reglan) 10 Mg Tablet 10 MG PO Q6H, #20 TAB Prov: BULMARO JONES DO 08/17/21 Ondansetron (Ondansetron Odt) 8 Mg Tab.rapdis 8 MG PO Q6H, #10 TAB Prov: BULMARO JONES DO 08/17/21 BULMARO JONES DO Aug 16, 2021 22:00
[2021-08-16 22:03] LABS: BASOPHILS # (AUTO) 0.1 10^3/uL (0.0-0.1); BASOPHILS % (AUTO) 0 % (0-10); EOSINOPHILS % (AUTO) 0 % (0-10); HEMATOCRIT 52 % (40-54); HEMOGLOBIN 18.7 g/dL (13.3-17.7); LYMPHOCYTES # (AUTO) 2.5 10^3/uL (1.0-4.0); LYMPHOCYTES % (AUTO) 22 % (12-44); MEAN CORPUSCULAR HEMOGLOBIN 34 pg (25-34); MEAN CORPUSCULAR HGB CONC 36 g/dL (32-36); MEAN CORPUSCULAR VOLUME 94 fL (80-99); MEAN PLATELET VOLUME 10.1 fL (9.0-12.2); MONOCYTES # (AUTO) 1.3 10^3/uL (0.0-1.0); MONOCYTES % (AUTO) 11 % (0-12); NEUTROPHILS # (AUTO) 7.4 10^3/uL (1.8-7.8); NEUTROPHILS % (AUTO) 65 % (42-75); PLATELET COUNT 275 10^3/uL (130-400); WHITE BLOOD COUNT 11.3 10^3/uL (4.3-11.0)
[2021-08-16 22:13] LABS: ALBUMIN 5.3 GM/DL (3.2-4.5); CHLORIDE 98 MMOL/L (98-107); POTASSIUM 3.6 MMOL/L (3.6-5.0); SODIUM 136 MMOL/L (135-145)
[2021-08-16 22:14] LABS: AMYLASE 76 U/L (25-125); CALCIUM 10.3 MG/DL (8.5-10.1)
[2021-08-16 22:16] LABS: GLUCOSE 126 MG/DL (70-105); TOTAL PROTEIN 8.7 GM/DL (6.4-8.2)
[2021-08-16 22:17] LABS: BILIRUBIN,TOTAL 1.1 MG/DL (0.1-1.0); CARBON DIOXIDE 10 MMOL/L (21-32); ERYTHROCYTE SEDIMENTATION RATE 7 MM/HR (0-15)
[2021-08-16 22:19] LABS: ALKALINE PHOSPHATASE 92 U/L (40-136); CREATININE SERUM 1.36 MG/DL (0.60-1.30); GFR ESTIMATED 73
[2021-08-16 22:21] LABS: BUN/CREATININE RATIO 6
[2021-08-16 22:22] LABS: ALANINE AMINOTRANSFERASE 121 U/L (0-55); MAGNESIUM 1.6 MG/DL (1.6-2.4)
[2021-08-16 22:23] LABS: LIPASE 166 U/L (8-78)
[2021-08-16] MEDS ORDERED: CATHETER FLUSH 10 ML SYR IV PRN (22:30)
[2021-08-16] MEDS ORDERED: IOHEXOL 350 MG/ML 100 ML (OMNIPAQUE 350) VIAL IV ONE (22:30)
[2021-08-16] MEDS ORDERED: NS 100 ML (IVPB) BAG IV ONE (22:30)
--- NOTE | 2021-08-16 22:38 | Diagnostic Imaging Report ---
EXAMINATION: CT abdomen and pelvis with intravenous contrast. TECHNIQUE: Multiple contiguous axial images were obtained through the abdomen and pelvis after the uneventful administration of intravenous contrast. All CT scans use one or more of the following dose optimizing techniques: automated exposure control, MA and/or KvP adjustment based on patient size and exam type or iterative reconstruction. HISTORY: Abdominal pain. Nausea and vomiting. COMPARISON: 07/13/2021. FINDINGS: The heart is unremarkable. The included lung bases are clear. There is hepatic steatosis. Focal fatty sparing is seen along the gallbladder fossa. No focal hepatic lesions. The portal vein is patent. The gallbladder is unremarkable. The spleen, pancreas, adrenal glands, and kidneys have a normal appearance. There is no pathologically enlarged mesenteric or retroperitoneal adenopathy. The bowel loops are nondilated. There is generalized edema throughout the colon with suggestion of fatty infiltration within the bowel wall of the colon. The appendix is surgically absent. There is no free fluid or free air. No acute osseous abnormalities. Ureters and bladder are grossly normal. There is no free air, loculated collection, or adenopathy in the pelvis. IMPRESSION: 1. Edema and fatty replacement throughout the bowel wall of the colon. Findings are suggestive of sequelae of prior pancolitis. This appearance can be seen with inflammatory bowel disease such as ulcerative colitis. No evidence of active inflammation or bowel obstruction. The appendix is surgically absent. 2. Hepatic steatosis. No focal hepatic lesions. Dictated by: Dictated on workstation # [id number]
[2021-08-16 23:20] LABS: ACETAMINOPHEN < 10 UG/ML (10-30)
[2021-08-16] MEDS ORDERED: ANTACID SUSP 30 ML UDC (MYLANTA) PO ONE (23:30)
[2021-08-16] MEDS ORDERED: LIDOCAINE 2% VISCOUS 15 ML UDC PO ONE (23:30)
[2021-08-16] MEDS ORDERED: diphenhydrAMINE 50 MG/ML INJ (BENADRYL) IVP ONE (23:45)
[2021-08-16] MEDS ORDERED: METOCLOPRAMIDE INJ 10 MG/2 ML (REGLAN) IVP ONE (23:45)
[2021-08-17 00:23] LABS: BILIRUBIN,URINE 2+ (NEGATIVE); CLARITY,URINE SL CLOUDY; COLOR,URINE YELLOW; GLUCOSE, URINE (UA) NEGATIVE (NEGATIVE); KETONES,URINE 3+ (NEGATIVE); LEUKOCYTE ESTERASE ,URINE NEGATIVE (NEGATIVE); NITRITE,URINE NEGATIVE (NEGATIVE); PROTEIN,URINE 3+ (NEGATIVE)
[2021-08-17] MEDS ORDERED: PANT40TA2 PO (00:30)
[2021-08-17] MEDS ORDERED: ONDA8TAB13 PO (00:30)
[2021-08-17] MEDS ORDERED: METO-310 PO (00:30)
[2021-08-17] MEDS ORDERED: SUCR1TAB36 PO (00:30)
[2021-08-17 00:41] LABS: RBC,URINE 0-2 /HPF
[2021-08-17 00:42] LABS: BACTERIA,URINE NEGATIVE /HPF; SQUAMOUS EPITHELIAL CELL,UR 0-2 /HPF
[2021-08-17 00:58] VITALS: BP 158/112
[2021-08-17 01:24] LABS: AMPHETAMINE SCREEN, URINE NEGATIVE (NEGATIVE); BARBITURATE SCREEN URINE NEGATIVE (NEGATIVE); BENZODIAZEPINES SCREEN URINE POSITIVE (NEGATIVE); CANNABINOID SCREEN, URINE POSITIVE (NEGATIVE); COCAINE SCREEN URINE NEGATIVE (NEGATIVE); METHADONE STAT NEGATIVE (NEGATIVE); OPIATE SCREEN URINE NEGATIVE (NEGATIVE); OXYCODONE STAT NEGATIVE (NEGATIVE); PROPOXYPHENE STAT NEGATIVE (NEGATIVE); TRICYCLIC ANTIDEPRESSANTS SCRE NEGATIVE (NEGATIVE)
== END 2021-08-17 00:58 | disposition home or self-care (01) ==
LOC: EDUNIT# 21:32 → ER 21:35
DX: K70.0 Alcoholic fatty liver (principal); R94.5 Abnormal results of liver function studies; I10 Essential (primary) hypertension; F12.20 Cannabis dependence, uncomplicated; F17.210 Nicotine dependence, cigarettes, uncomplicated; Z20.822 Contact with and (suspected) exposure to COVID-19; Z90.49 Acquired absence of other specified parts of digestive tract; Z98.890 Other specified postprocedural states
CPT/HCPCS: 74177; 80053; 82150; 83690; 83735; 85652; 86141; 87636; 93041; G0480 ×2; 36415; 80306; 80320; 80329; 81000; 85025

== ENCOUNTER 2022-06-15 13:45 | Emergency (ER) | payer SELFPAY ==
[~2022-06-15] VITALS: Ht 180 cm; Wt 79.0 kg
[~2022-06-15 13:45] MED LIST changes: +METO-310 PO; +PANT40TA2 PO; +SUCR1TAB36 PO
[2022-06-15 14:50] LABS: BASOPHILS # (AUTO) 0.1 10^3/uL (0.0-0.1); BASOPHILS % (AUTO) 1 % (0-10); EOSINOPHILS # (AUTO) 0.2 10^3/uL (0.0-0.3); EOSINOPHILS % (AUTO) 2 % (0-10); LYMPHOCYTES # (AUTO) 2.3 X 10^3 (1.0-4.0); LYMPHOCYTES % (AUTO) 28 % (12-44); MEAN CORPUSCULAR HEMOGLOBIN 37 pg (25-34); MEAN CORPUSCULAR HGB CONC 34 g/dL (32-36); MEAN CORPUSCULAR VOLUME 110 fL (80-99); MONOCYTES # (AUTO) 1.1 X 10^3 (0.0-1.0); MONOCYTES % (AUTO) 13 % (0-12); NEUTROPHILS # (AUTO) 4.8 X 10^3 (1.8-7.8); NEUTROPHILS % (AUTO) 57 % (42-75); PLATELET COUNT 109 10^3/uL (130-400); WHITE BLOOD COUNT 8.4 10^3/uL (4.3-11.0)
[2022-06-15 14:53] LABS: ALBUMIN 2.5 GM/DL (3.2-4.5); CHLORIDE 97 MMOL/L (98-107); POTASSIUM 2.7 MMOL/L (3.6-5.0); SODIUM 134 MMOL/L (135-145)
[2022-06-15 14:54] LABS: HEMATOCRIT 19 % (40-54); HEMOGLOBIN 6.5 g/dL (13.3-17.7)
[2022-06-15 14:56] LABS: GLUCOSE 136 MG/DL (70-105); TOTAL PROTEIN 6.3 GM/DL (6.4-8.2)
[2022-06-15 14:57] LABS: BILIRUBIN,TOTAL 6.4 MG/DL (0.1-1.0); CARBON DIOXIDE 24 MMOL/L (21-32)
[2022-06-15 14:59] LABS: ALKALINE PHOSPHATASE 97 U/L (40-136); CREATININE SERUM 0.69 MG/DL (0.60-1.30); GFR ESTIMATED 128
[2022-06-15 15:00] LABS: BUN/CREATININE RATIO 4
[2022-06-15 15:02] LABS: ALANINE AMINOTRANSFERASE 60 U/L (0-55); INR 2.4 (0.8-1.4); MAGNESIUM 1.5 MG/DL (1.6-2.4); PROTHROMBIN TIME PATIENT 26.6 SEC (12.2-14.7)
--- NOTE | 2022-06-15 15:02 | ED General ---
General Chief Complaint: General Problems/Pain Stated Complaint: ABNORMAL EKG Nursing Triage Note: ARRIVED VIA AMB FROM [facility] WITH AN ABNORMAL EKG. PT STATES HE WENT TO [facility] DUE TO A HX OF PANCREATITIS AND IS HAVING ABD PAIN. ROUTINE EKG SHOWED ABNORMAL. PT SKIN IS JAUNDICED. PT STATES HE DOES DRINK AND HAD A 6 PACK YESTERDAY. Source of Information: Patient Exam Limitations: No Limitations History of Present Illness Date Seen by Provider: June 15, 2022 Time Seen by Provider: 13:45 Initial Comments This 31-year-old young man presents to the emergency room as referred by the [facility] clinic due to concerns about jaundice, abdominal pain, tachycardia, and reported abnormalities on an EKG. He is an alcoholic who is presently drinking about 6 beers per day but historically has consumed far more. He reports a history of pancreatitis but not known hepatic failure he also has a history of prior IV drug use but has not used in a few years. He has been tested for hepatitis C since cessation of IV drug use and reports that screening was negative. He reports some mild abdominal pain, primarily in the left upper quadrant. His last alcoholic beverage was last night. He denies feeling symptoms of withd oneal such as agitation, hallucinations, or tremors. Allergies and Home Medications Allergies Coded Allergies: acetaminophen (Verified Allergy, Unknown, 08/08/20) codeine (Verified Allergy, Unknown, 08/08/20) Patient Home Medication List Home Medication List Reviewed: Yes Meloxicam (Meloxicam) 15 Mg Tablet, 15 MG PO DAILY PRN for PAIN-BREAKTHROUGH, (Reported) Entered as Reported by: JOEY RIDDLE on 08/10/20 0818 Metoclopramide HCl (Reglan) 10 Mg Tablet, 10 MG PO Q6H Prescribed by: BULMARO JONES on 08/17/2129 Ondansetron (Ondansetron Odt) 8 Mg Tab.rapdis, 8 MG PO Q6H Prescribed by: BULMARO JONES on 08/17/2129 Pantoprazole Sodium (Protonix) 40 Mg Tablet.dr, 40 MG PO DAILY Prescribed by: BULMARO JONES on 08/17/2129 Sucralfate (Carafate) 1 Gram Tablet, 1 GM PO QID Prescribed by: BULMARO JONES on 08/17/2129 Tramadol HCl (Tramadol HCl) 50 Mg Tablet, 50 MG PO Q4H PRN for PAIN-MODERATE (5- 7) Prescribed by: ARYA MCARTHUR on 07/13/21 8236 Review of Systems Review of Systems Constitutional: no symptoms reported EENTM: see HPI, other (Scleral icterus) Respiratory: no symptoms reported Cardiovascular: see HPI, other (Tachycardia) Gastrointestinal: see HPI Genitourinary: no symptoms reported Musculoskeletal: no symptoms reported Skin: see HPI, change in color (Jaundice) Psychiatric/Neurological: No Symptoms Reported Hematologic/Lymphatic: No Symptoms Reported Immunological/Allergic: no symptoms reported Past Acixiql-Czbomi-Palcea Hx Patient Social History Tobacco Use?: No Smoking Status: Former Smoker (Quit smoking 2021) Substance use?: Yes (Remote history of IV drug use) Substance type: Marijuana Additional substance use comme: PAST IV DRUG USE Alcohol Use?: Yes Alcohol type: Beer Alcohol Frequency: Daily (At least 6 beers daily, previously much heavier) Immunizations Up To Date Tetanus Booster (TDap): Less than 5yrs PED Vaccines UTD: Yes First/Initial COVID19 Vaccinat: May Second COVID19 Vaccination Emeka: UNKNOWN 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 SURGERY;TONSILECTOMY. Surgeries: Yes (abdominal drains for pancreatic process) Abdominal, Appendectomy, Tonsillectomy Respiratory: Yes Asthma Cardiac: Yes Hypertension Neurological: No Reproductive Disorders: No Sexually Transmitted Disease: No Genitourinary: No Gastrointestinal: Yes Pancreatitis Musculoskeletal: No Endocrine: No HEENT: No Cancer: No Psychosocial: Yes (POLYSUBSTANCE ABUSE--DRUGS + ALCOHOL, alcohol dependence) Anxiety, Depression Integumentary: No Blood Disorders: No Family Medical History Hypertension SOCIAL HISTORY: -SMOKES 1 PPD -ETOH--HISTORY OF HEAVY USE, NOW CLAIMS HE HAS "CUT BACK" AND ONLY DRINKS ABOUT 3 DRINKS A NIGHT, ABOUT 3 TIMES A WEEK--PER PT ON 08/16/21 --DRUGS-- HISTORY OF IV HEROIN AND IV METH USE. CLAIMS "NONE FOR 3 YEARS"--PER PT ON 08/16/21. STILL SMOKES MARIJUANA ON DAILY BASIS. ALSO HAS HISTORY OF ILLICIT OPIATE USE/ABUSE PAST SURGICAL HISTORY: -APPENDECTOMY 06/2021 -SURGERY FOR PANCREATIC PSEUDOCYST--DRAINS PLACED. DONE AT [facility] IN 12/2019 Physical Exam Vital Signs Vital Signs - First Documented 06/15/22 13:56 Temp 36.3 Pulse 123 Resp 16 B/P (MAP) 139/81 (100) Pulse Ox 99 O2 Delivery Room Air Capillary Refill : Less Than 3 Seconds Height, Weight, BMI Height: 5'11" Weight: 165lbs. oz. 74.231533fg; 24.00 BMI Method:Stated General Appearance: No Apparent Distress, WD/WN Eyes: Bilateral Eye Scleral Icterus HEENT: PERRL/EOMI, Normal ENT Inspection, Other (Oropharynx dry) Neck: Normal Inspection Respiratory: Lungs Clear, Normal Breath Sounds, No Accessory Muscle Use Cardiovascular: Systolic Murmur (Very loud systolic murmur), Tachycardia (Regular), Other (Mild lower extremity edema) Gastrointestinal: Soft, Distended, Tenderness (Mild, predominantly in the left upper quadrant) Extremity: Swelling (Mild lower extremity edema), Other (Scattered bruising throughout the extremity) Neurologic/Psychiatric: Alert, Oriented x3, No Motor/Sensory Deficits, Normal Mood/Affect Skin: Warm/Dry, Ecchymosis, Jaundice Focused Exam Lactate Level 06/15/22 15:06: Lactic Acid Level 3.02*H 06/15/22 17:22: Lactic Acid Level 2.46*H Lactic Acid Level Laboratory Tests Test 06/15/22 15:06 06/15/22 17:22 Lactic Acid Level 3.02 MMOL/L (0.50-2.00) *H 2.46 MMOL/L (0.50-2.00) *H Progress/Results/Core Measures Suspected Sepsis SIRS Temperature: Pulse: 123 Respiratory Rate: 16 Laboratory Tests 06/15/22 14:40: White Blood Count 8.4 Blood Pressure 139 /81 Mean: 100 06/15/22 15:06: Lactic Acid Level 3.02*H 06/15/22 17:22: Lactic Acid Level 2.46*H Laboratory Tests 06/15/22 14:40: Creatinine 0.69, INR Comment 2.4H, Platelet Count 109L, Total Bilirubin 6.4H Results/Orders Lab Results Laboratory Tests Test 06/15/22 14:40 06/15/22 15:06 06/15/22 17:22 06/15/22 17:29 Range/Units White Blood Count 8.4 4.3-11.0 10^3/uL Red Blood Count 1.75 L 4.30-5.52 10^6/uL Hemoglobin 6.5 *L 13.3-17.7 g/dL Hematocrit 19 *L 40-54 % Mean Corpuscular Volume 110 H 80-99 fL Mean Corpuscular Hemoglobin 37 H 25-34 pg Mean Corpuscular Hemoglobin Concent 34 32-36 g/dL Red Cell Distribution Width 14.8 H 10.0-14.5 % Platelet Count 109 L 130-400 10^3/uL Mean Platelet Volume 11.0 9.0-12.2 fL Immature Granulocyte % (Auto) 0 % Neutrophils (%) (Auto) 57 42-75 % Lymphocytes (%) (Auto) 28 12-44 % Monocytes (%) (Auto) 13 H 0-12 % Eosinophils (%) (Auto) 2 0-10 % Basophils (%) (Auto) 1 0-10 % Neutrophils # (Auto) 4.8 1.8-7.8 X 10^3 Lymphocytes # (Auto) 2.3 1.0-4.0 X 10^3 Monocytes # (Auto) 1.1 H 0.0-1.0 X 10^3 Eosinophils # (Auto) 0.2 0.0-0.3 10^3/uL Basophils # (Auto) 0.1 0.0-0.1 10^3/uL Immature Granulocyte # (Auto) 0.0 0.0-0.1 10^3/uL Erythrocyte Sedimentation Rate 39 H 0-15 MM/HR Prothrombin Time 26.6 H 12.2-14.7 SEC INR Comment 2.4 H 0.8-1.4 Activated Partial Thromboplast Time 36 H 24-35 SEC Sodium Level 134 L 135-145 MMOL/L Potassium Level 2.7 L 3.6-5.0 MMOL/L Chloride Level 97 L 98-107 MMOL/L Carbon Dioxide Level 24 21-32 MMOL/L Anion Gap 13 5-14 MMOL/L Blood Urea Nitrogen 3 L 7-18 MG/DL Creatinine 0.69 0.60-1.30 MG/DL Estimat Glomerular Filtration Rate 128 BUN/Creatinine Ratio 4 Glucose Level 136 H 70-105 MG/DL Calcium Level 8.0 L 8.5-10.1 MG/DL Corrected Calcium 9.2 8.5-10.1 MG/DL Magnesium Level 1.5 L 1.6-2.4 MG/DL Total Bilirubin 6.4 H 0.1-1.0 MG/DL Aspartate Amino Transf (AST/SGOT) 147 H 5-34 U/L Alanine Aminotransferase (ALT/SGPT) 60 H 0-55 U/L Alkaline Phosphatase 97 40-136 U/L C-Reactive Protein High Sensitivity 1.26 H 0.00-0.50 MG/DL Total Protein 6.3 L 6.4-8.2 GM/DL Albumin 2.5 L 3.2-4.5 GM/DL Lipase 37 8-78 U/L Serum Alcohol < 10 <10 MG/DL Lactic Acid Level 3.02 *H 2.46 *H 0.50-2.00 MMOL/L Urine Color DARK YELLOW Urine Clarity CLEAR Urine pH 6.5 5-9 Urine Specific [place] 1.020 1.016-1.022 Urine Protein 1+ H NEGATIVE Urine Glucose (UA) TRACE H NEGATIVE Urine Ketones TRACE H NEGATIVE Urine Nitrite POSITIVE H NEGATIVE Urine Bilirubin 2+ H NEGATIVE Urine Urobilinogen >=8.0 < = 1.0 MG/DL Urine Leukocyte Esterase TRACE H NEGATIVE Urine RBC (Auto) NEGATIVE NEGATIVE Urine RBC 0-2 /HPF Urine WBC 5-10 H /HPF Urine Squamous Epithelial Cells 2-5 /HPF Urine Crystals PRESENT H /LPF Urine Calcium Oxalate Crystals FEW H /LPF Urine Amorphous Sediment FEW OSCAR URATES H /LPF Urine Bacteria FEW H /HPF Urine Casts PRESENT /LPF Urine Hyaline Casts 2-5 H /LPF Urine Mucus LARGE H /LPF Urine Culture Indicated CULTURE PENDING Urine Opiates Screen NEGATIVE NEGATIVE Urine Oxycodone Screen NEGATIVE NEGATIVE Urine Methadone Screen NEGATIVE NEGATIVE Urine Propoxyphene Screen NEGATIVE NEGATIVE Urine Barbiturates Screen NEGATIVE NEGATIVE Ur Tricyclic Antidepressants Screen NEGATIVE NEGATIVE Urine Phencyclidine Screen NEGATIVE NEGATIVE Urine Amphetamines Screen NEGATIVE NEGATIVE Urine Methamphetamines Screen NEGATIVE NEGATIVE Urine Benzodiazepines Screen POSITIVE H NEGATIVE Urine Cocaine Screen NEGATIVE NEGATIVE Urine Cannabinoids Screen POSITIVE H NEGATIVE My Orders Orders - JENNIFER WHITEHEAD MD Alcohol (06/15/22 14:03) Cbc With Automated Diff (06/15/22 14:03) Comprehensive Metabolic Panel (06/15/22 14:03) Hs C Reactive Protein (06/15/22 14:03) Erythrocyte Sedimentation Rate (06/15/22 14:03) Drug Screen Stat (Urine) (06/15/22 14:03) Hepatitis Panel Acute (06/15/22 14:03) Magnesium (06/15/22 14:03) Protime With Inr (06/15/22 14:03) Partial Thromboplastin Time (06/15/22 14:03) Blood Culture (06/15/22 14:03) Urinalysis (06/15/22 14:03) Urine Culture (06/15/22 14:03) Chest 1 View, Ap/Pa Only (06/15/22 14:03) Vital Signs Adult Sepsis Patie Q15M (06/15/22 14:03) Remove Rings In Anticipation O (06/15/22 14:03) Lactic Acid Analyzer (06/15/22 14:03) Ekg Tracing (06/15/22 14:13) Monitor-Rhythm Ecg Trace Only (06/15/22 14:13) Echo W Doppler/Color Flow (06/15/22 14:30) Lipase (06/15/22 15:04) Us Gallbladder 16[address] (06/15/22 15:05) Ns Iv 1000 Ml (Sodium Chloride 0.9%) (06/15/22 15:15) Potassium Cl 10meq/50ml Ivpb (Kcl 10 Meq (06/15/22 15:15) Pantoprazole Injection (Protonix Injecti (06/15/22 15:15) Iron Tibc %Sat & Ferritin (06/15/22 15:07) Folic Acid (06/15/22 15:07) Vitamin B 12 (06/15/22 15:07) Red Cells Leukocytes Reduced (06/15/22 15:44) Type And Screen (06/15/22 15:44) Ondansetron Oral Dissolve Tab (Zofran (06/15/22 16:31) Lidocaine 2% Viscous 15 Ml (Xylocaine Vi (06/15/22 16:45) Antacid Suspension (Mylanta Suspension (06/15/22 16:45) Morphine Injection (Morphine Injection (06/15/22 17:17) Medications Given in ED Current Medications Medications Dose Ordered Sig/Stoney Route Start Time Stop Time Status Last Admin Dose Admin Al Hydrox/Mg Hydrox/Simethicone 30 ml ONCE ONCE PO 06/15/22 16:45 06/15/22 16:46 DC 06/15/22 16:40 30 ML Lidocaine HCl 15 ml ONCE ONCE PO 06/15/22 16:45 06/15/22 16:46 DC 06/15/22 16:40 15 ML Pantoprazole 40 mg ONCE ONCE IV 06/15/22 15:15 06/15/22 15:16 DC 06/15/22 15:24 40 MG Potassium Chloride 50 ml @ 50 mls/hr ONCE ONCE IV 06/15/22 15:15 06/15/22 16:14 DC 06/15/22 15:26 50 MLS/HR Sodium Chloride 1,000 ml @ 150 mls/hr Q6H40M ONCE IV 06/15/22 15:15 06/15/22 21:54 06/15/22 15:24 150 MLS/HR Vital Signs/I&O 06/15/22 13:56 Temp 36.3 Pulse 123 Resp 16 B/P (MAP) 139/81 (100) Pulse Ox 99 O2 Delivery Room Air Capillary Refill : Less Than 3 Seconds Blood Pressure Mean: 100 Progress Note : Progress Note Patient underwent a very thorough work-up and appears to have significant acute on chronic liver failure with severe complications. Labs were reviewed and interpreted by me. Notably he was found to be severely anemic with a hemoglobin of 6.5. 1 unit of packed red blood cells was transfused to treat the anemia. Platelets were also low at 109. Chemistry studies were remarkable for potassium of 2.7. Replacement was initiated with 10 mEq of potassium by IV route. Renal function was normal. Transaminases were mildly elevated. Lipase was normal. INR was elevated at 2.4 further suggesting an acute on chronic hepatic failure. Urine drug screen was positive for benzodiazepines and marijuana. There was some suggestion of pyuria on urinalysis with 5-10 WBC, nitrite positive, and few bacteria. This will be treated with a dose of Rocephin. Patient was suspected of having gastritis and/or esophagitis as source of anemia. He reported some melanic stools. GI cocktail was administered for his upper abdominal pain but did not improve it. He was further treated with morphine. I discussed ultrasound findings with Dr. Espinosa, surgeon on-call. He did not believe there was any surgically urgent pathology that required immediate intervention. He recommended aggressive hydration and alcohol cessation along with monitoring for withdrawal symptoms. Case was discussed with Dr. Ramsey, hospitalist. She was concerned about his MELD score of 25 and projected mortality rate of 20% in 3 months. She declined admission and recommended transfer to a facility with gastroenterology and/or hepatology. Patient remained stable during his ER stay. He presented no symptoms of active bleeding. His blood pressure remained stable. His tachycardia was persistent but did not worsen. He received Protonix for GI prophylaxis. Studies pending at the time of transfer include an acute hepatitis panel, iron studies, vitamin B12, and folate. Patient had a very prominent murmur with some subtle EKG changes. Ech ocardiogram was pursued. No valvular pathologies were identified. Murmur may be predominantly due to tachycardia and severe anemia. Case was discussed with Dr. Byrd, after school program director at [facility] in [place] who accepted the transfer. ECG Initial ECG Impression Date: June 15, 2022 Initial ECG Impression Time: 14:30 Initial ECG Rate: 115 Initial ECG Rhythm: S.Tach Comment Sinus tachycardia with no ST elevation or depression. No abnormal intervals or axis deviation. Diagnostic Imaging Diagonstic Imaging: Ultrasound Plain Films/CT/US/NM/MRI: abdomen Comments NAME: DIONNE NORMAN MED REC#: [id number] PT STATUS: REG ER : 1990 PHYSICIAN: JENNIFER WHITEHEAD MD ADMIT DATE: 06/15/22/ER Signed Date of Exam:06/15/22 US GALLBLADDER [id number] CLINICAL INDICATION: Patient with jaundice, liver failure, and abdominal pain. Patient is not n.p.o. EXAM: Right upper quadrant ultrasound. COMPARISON: CT scan of the abdomen and pelvis with contrast dated 08/16/2021. FINDINGS: Patient body habitus and overlying bowel gas obscure portions of this exam. The pancreas is obscured by bowel gas and unable to be evaluated. Visualized portions of the abdominal aorta and IVC are unremarkable. There is hepatomegaly with the liver measuring 19.5 cm in craniocaudal dimensions. There is diffuse hyperechogenicity seen throughout the liver. The liver surface is smooth. There is no liver mass seen. The main portal vein demonstrates hepatofugal flow. Comparison CT scan shows the main portal vein to be patent at that time. Visualized portions of the hepatic veins are patent with forward flow. There is no intrahepatic ductal dilation. The common bile duct is obscured by bowel gas and patient body habitus. There is gallbladder wall thickening of 5 mm. There is questionable sludge within the gallbladder with small echoes seen. There is no pericholecystic fluid, and there is no sonographic Ford's sign. The right kidney measures 11.1 cm in craniocaudal dimensions. There is no hydronephrosis or mass. No abdominal free fluid. IMPRESSION: 1: Limited exam due to patient body habitus and overlying bowel gas. The pancreas is obscured and unable to be visualized. 2: There is diffuse gallbladder wall thickening, with questionable sludge within the gallbladder. There is no sonographic Ford's sign. The gallbladder is mild to moderately fluid distended. Patient was not n.p.o., and the gallbladder findings are nonspecific. Contraction may be considered. If there is concern for cystic duct obstruction, then nuclear medicine HIDA study would better evaluate. 3: There is hepatomegaly with diffuse hyperechogenicity throughout the liver likely related to diffuse fatty infiltration. 4: There is note of hepatofugal flow involving the main portal vein of unknown etiology. CT scan of the abdomen postcontrast would help better evaluate for portal vein abnormality, not seen on this exam. Dictated by: Dictated on workstation # [id number] Dict: 06/15/22 1548 Trans: 06/15/22 1631 [id number] Interpreted by: BRITTNEY BUCIO MD Electronically signed by: BRITTNEY BUCIO MD 06/15/22 1631 Diagonstic Imaging: Xray Plain Films/CT/US/NM/MRI: chest Comments NAME: DIONNE NORMAN MED REC#: [id number] PT STATUS: REG ER : 1990 PHYSICIAN: JENNIFER WHITEHEAD MD ADMIT DATE: 06/15/22/ER Signed Date of Exam:06/15/22 CHEST 1 VIEW, AP/PA ONLY Indication: Tachycardia, pain. Findings: The lungs are clear. There is no failure, effusion or pneumothorax. Impression: Negative Dictated by: Dictated on workstation # [id number] Dict: 06/15/22 1506 Trans: 06/15/22 1719 [id number] Interpreted by: MYESHA LYLES Electronically signed by: MYESHA LYLES 06/15/22 1719 Departure Impression Primary Impression: Liver failure Qualified Codes: K72.90 - Hepatic failure, unspecified without coma Additional Impressions: Severe anemia Hypokalemia Hypomagnesemia Alcoholism Urinary tract infection Qualified Codes: N39.0 - Urinary tract infection, site not specified Disposition: 02 XFER SHT-TRM HOSP Condition: Stable Transfer Transfer Reason: Exceeds level of care Time Spoke to Accepting Phy: 17:45 Transfer Progress Notes Transfer was excepted by Dr. Byrd, after school program director at [facility]. Transfer Facility: [facility] Method of Transfer: EMS Departure-Patient Inst. Referrals: CANELO CUADRA LYFT DRIVER (PCP/Family) Primary Care Physician Copy Copies To 1: [facility]/JENNIFER PERRY MD June 15, 2022 15:02
--- NOTE | 2022-06-15 15:07 | Diagnostic Imaging Report ---
Indication: Tachycardia, pain. Findings: The lungs are clear. There is no failure, effusion or pneumothorax. Impression: Negative Dictated by: Dictated on workstation # [id number]
[2022-06-15] MEDS ORDERED: NS IV 1000 ML 1,000 ML IV ONE (15:15)
[2022-06-15] MEDS ORDERED: PANTOPRAZOLE 40 MG (PROTONIX) VIAL IV ONE (15:15)
[2022-06-15] MEDS ORDERED: POTASSIUM CL 10MEQ/50ML IVPB 50 ML IV ONE (15:15)
[2022-06-15 15:18] LABS: ERYTHROCYTE SEDIMENTATION RATE 39 MM/HR (0-15)
--- NOTE | 2022-06-15 16:07 | Diagnostic Imaging Report ---
CLINICAL INDICATION: Patient with jaundice, liver failure, and abdominal pain. Patient is not n.p.o. EXAM: Right upper quadrant ultrasound. COMPARISON: CT scan of the abdomen and pelvis with contrast dated 08/16/2021. FINDINGS: Patient body habitus and overlying bowel gas obscure portions of this exam. The pancreas is obscured by bowel gas and unable to be evaluated. Visualized portions of the abdominal aorta and IVC are unremarkable. There is hepatomegaly with the liver measuring 19.5 cm in craniocaudal dimensions. There is diffuse hyperechogenicity seen throughout the liver. The liver surface is smooth. There is no liver mass seen. The main portal vein demonstrates hepatofugal flow. Comparison CT scan shows the main portal vein to be patent at that time. Visualized portions of the hepatic veins are patent with forward flow. There is no intrahepatic ductal dilation. The common bile duct is obscured by bowel gas and patient body habitus. There is gallbladder wall thickening of 5 mm. There is questionable sludge within the gallbladder with small echoes seen. There is no pericholecystic fluid, and there is no sonographic Ford's sign. The right kidney measures 11.1 cm in craniocaudal dimensions. There is no hydronephrosis or mass. No abdominal free fluid. IMPRESSION: 1: Limited exam due to patient body habitus and overlying bowel gas. The pancreas is obscured and unable to be visualized. 2: There is diffuse gallbladder wall thickening, with questionable sludge within the gallbladder. There is no sonographic Ford's sign. The gallbladder is mild to moderately fluid distended. Patient was not n.p.o., and the gallbladder findings are nonspecific. Contraction may be considered. If there is concern for cystic duct obstruction, then nuclear medicine HIDA study would better evaluate. 3: There is hepatomegaly with diffuse hyperechogenicity throughout the liver likely related to diffuse fatty infiltration. 4: There is note of hepatofugal flow involving the main portal vein of unknown etiology. CT scan of the abdomen postcontrast would help better evaluate for portal vein abnormality, not seen on this exam. Dictated by: Dictated on workstation # [id number]
[2022-06-15] MEDS ORDERED: ONDANSETRON 4 MG (ZOFRAN) ORAL DISSOLVE TAB SL STA (16:31)
[2022-06-15] MEDS ORDERED: LIDOCAINE 2% VISCOUS 15 ML UDC PO ONE (16:45)
[2022-06-15] MEDS ORDERED: ANTACID SUSP 30 ML UDC (MYLANTA) PO ONE (16:45)
[2022-06-15] MEDS ORDERED: morphine INJ 10 MG/ML 1ML (SYR OR VIAL) IVP STA (17:17)
[2022-06-15 17:39] LABS: CLARITY,URINE CLEAR; COLOR,URINE DARK YELLOW; GLUCOSE, URINE (UA) TRACE (NEGATIVE); KETONES,URINE TRACE (NEGATIVE); LEUKOCYTE ESTERASE ,URINE TRACE (NEGATIVE); NITRITE,URINE POSITIVE (NEGATIVE); PH,URINE 6.5 (5-9); PROTEIN,URINE 1+ (NEGATIVE)
[2022-06-15 17:54] LABS: AMPHETAMINE SCREEN, URINE NEGATIVE (NEGATIVE); BARBITURATE SCREEN URINE NEGATIVE (NEGATIVE); BENZODIAZEPINES SCREEN URINE POSITIVE (NEGATIVE); CANNABINOID SCREEN, URINE POSITIVE (NEGATIVE); COCAINE SCREEN URINE NEGATIVE (NEGATIVE); METHADONE STAT NEGATIVE (NEGATIVE); OPIATE SCREEN URINE NEGATIVE (NEGATIVE); OXYCODONE STAT NEGATIVE (NEGATIVE); PROPOXYPHENE STAT NEGATIVE (NEGATIVE); TRICYCLIC ANTIDEPRESSANTS SCRE NEGATIVE (NEGATIVE)
[2022-06-15 18:19] LABS: BILIRUBIN,URINE 2+ (NEGATIVE)
[2022-06-15 18:20] LABS: RBC,URINE 0-2 /HPF
[2022-06-15 18:21] LABS: AMORPHOUS SEDIMENT,UR FEW AMOR URATES /LPF; BACTERIA,URINE FEW /HPF; CALCIUM OXALATE CRYSTALS,UR FEW /LPF
[2022-06-15] MEDS ORDERED: morphine INJ 10 MG/ML 1ML (SYR OR VIAL) ONE (19:25)
[2022-06-15 19:59] VITALS: BP 85/57
[2022-06-15 22:02] LABS: HEPATITIS C ANTIBODY C Non-Reactive (Non-Reactive)
== END 2022-06-15 19:57 | disposition short-term general hospital (02) ==
LOC: EDUNIT# 13:45 → ER 13:47
DX: K72.90 Hepatic failure, unspecified without coma (principal); D64.9 Anemia, unspecified; E87.6 Hypokalemia; E83.42 Hypomagnesemia; N39.0 Urinary tract infection, site not specified; R79.1 Abnormal coagulation profile; R00.0 Tachycardia, unspecified; F10.20 Alcohol dependence, uncomplicated; Z87.891 Personal history of nicotine dependence; Z87.19 Personal history of other diseases of the digestive system
CPT/HCPCS: 71045; 76705; 80053; 80074; 80306; 81000; 82607; 82728; 82746; 83540; 83550; 83605; 83690; 83735; 85025; 85610; 85652; 85730; 86141; 86850; 86900; 86901; 86920; 87040; 87088; 93005; 93041; 99285; C8929; G0480; P9016; 36415; 80320; 87077; 93306

== ENCOUNTER 2022-06-23 13:38 | Emergency (ER) | payer SELFPAY ==
[~2022-06-23] VITALS: Ht 180 cm; Wt 78.0 kg
--- NOTE | 2022-06-23 14:37 | ED General ---
General Chief Complaint: General Problems/Pain Stated Complaint: LIVER FAILURE | ABD PAIN Nursing Triage Note: AMBULATED TO ROOM 01 WITH COMPLAINTS OF LOWER ABD PAIN AND BOIL TO RIGHT UPPER OUTER THIGH. RECENTLY SEEN HERE FOR LIVER FAILURE ET TRANSFERRED TO [facility]. DENIES ETOH OR DRUG USE FOR OVER A WEEK. STATES DR PUT HIM ON A MED FOR NARCOTIC WITHDRAW. Source of Information: Patient Exam Limitations: No Limitations History of Present Illness Date Seen by Provider: June 23, 2022 Time Seen by Provider: 14:22 Initial Comments Here with complaint of abdominal pain and draining wound to the right hip. Denies foul-smelling drainage or fever currently. Does have different wounds around the body that are small circular wounds and the wound on the right hip does have discoloration with serous fluid leakage. Patient does have history of liver failure and was seen last week for the same and then transferred to [facility] due to possible need of gastroenterology services due to history of liver failure. Patient states he was transferred there and was there for about 18 hours and then discharged home. Since then he has been on alcohol cessation outpatient protocol through [facility]. He is taking Ativan 1 mg twice daily as needed. He has family member with him who is assisting him with the meds. He states he has not drink alcohol since before last visit. Hip admits to using marijuana edibles but otherwise is refraining from anything illicit. Denies vomiting but does have some nausea and reports persistent diarrhea. Reports that he had a transfusion here and also at [facility] before discharge last week. Timing/Duration: Changing Over Time, Other (2 weeks) Severity: Moderate Modifying Factors: improves with Rest Associated Systoms: No Cough, No Fever/Chills; Nausea/Vomiting; No Shortness of Air; Weakness Allergies and Home Medications Allergies Coded Allergies: acetaminophen (Verified Allergy, Unknown, 08/08/20) codeine (Verified Allergy, Unknown, 08/08/20) Patient Home Medication List Home Medication List Reviewed: Yes Meloxicam (Meloxicam) 15 Mg Tablet, 15 MG PO DAILY PRN for PAIN-BREAKTHROUGH, (Reported) Entered as Reported by: JOEY RIDDLE on 08/10/20 0818 Metoclopramide HCl (Reglan) 10 Mg Tablet, 10 MG PO Q6H Prescribed by: BULMARO JONES on 08/17/21 0030 Ondansetron (Ondansetron Odt) 8 Mg Tab.rapdis, 8 MG PO Q6H Prescribed by: BULMARO JONES on 08/17/2129 Oxycodone HCl (Oxycodone HCl) 5 Mg Tablet, 5 MG PO Q6H PRN for PAIN Prescribed by: JOANIE POPE on 06/23/221820 Pantoprazole Sodium (Protonix) 40 Mg Tablet.dr, 40 MG PO DAILY Prescribed by: BULMARO JONES on 08/17/2129 Sucralfate (Carafate) 1 Gram Tablet, 1 GM PO QID Prescribed by: BULMARO JONES on 08/17/2129 Tramadol HCl (Tramadol HCl) 50 Mg Tablet, 50 MG PO Q4H PRN for PAIN-MODERATE (5- 7) Prescribed by: ARYA MCARTHUR on 07/13/21 1435 Review of Systems Review of Systems Constitutional: see HPI; No chills, No fever EENTM: No nose congestion, No throat pain Respiratory: see HPI; No cough; short of breath Cardiovascular: No chest pain Gastrointestinal: abdominal pain, diarrhea, nausea Genitourinary: no symptoms reported Musculoskeletal: No back pain, No joint pain Skin: change in color, lesions Hematologic/Lymphatic: Anemia Past Kplugge-Tvnvhu-Tanemt Hx Patient Social History Tobacco Use?: No Substance use?: Yes Substance type: Marijuana Additional substance use comme: IV DRUG USE IN THE PAST Alcohol Use?: No (Quit 06/14/2022.) Immunizations Up To Date Tetanus Booster (TDap): Less than 5yrs PED Vaccines UTD: Yes First/Initial COVID19 Vaccinat: UNKNOWN Second COVID19 Vaccination Emeka: UNKNOWN Third COVID19 Vaccination Date: UNKNOWN Seasonal Allergies Seasonal Allergies: No Past Medical History Surgery/Hospitalization HX: PMH;HX PANCREATITIS AND ANXIETY. SURGERY;TONSILECTOMY. Surgeries: Yes (abdominal drains for pancreatic process) Abdominal, Appendectomy, Tonsillectomy Respiratory: Yes Asthma Cardiac: Yes Hypertension Neurological: No Reproductive Disorders: No Sexually Transmitted Disease: No Genitourinary: No Gastrointestinal: Yes Pancreatitis Musculoskeletal: No Endocrine: No HEENT: No Cancer: No Psychosocial: Yes (POLYSUBSTANCE ABUSE--DRUGS + ALCOHOL, alcohol dependence) Anxiety, Depression Integumentary: No Blood Disorders: No Family Medical History Hypertension Physical Exam-Suspected Sepsis Physical Exam Vital Signs Vital Signs - First Documented 06/23/22 13:50 Temp 35.8 Pulse 103 Resp 16 B/P (MAP) 123/67 (85) Pulse Ox 93 O2 Delivery Room Air Capillary Refill : Less Than 3 Seconds Blood Pressure Mean: 85 Height, Weight, BMI Height: 5'11" Weight: 165lbs. oz. 74.077113ep; 24.00 BMI Method:Stated General Appearance: No Apparent Distress, Other (Ill-appearing) HEENT: PERRL/EOMI, Scleral Icterus (L), Scleral Icterus (R) Neck: Non Tender, Supple Respiratory: Lungs Clear, Normal Breath Sounds Cardiovascular: No Murmur, Tachycardia Gastrointestinal: Soft, Distended, Tenderness (Left upper quadrant and left lower quadrant) Back: Normal Inspection, No CVA Tenderness, No Vertebral Tenderness Extremity: Normal Range of Motion, Non Tender Neurologic/Psychiatric: Alert, Oriented x3 Skin: jaundice, other (3 to 4 cm circular bruise appearing wound to right hip that has central 3 mm core that is draining serous fluid. He has a couple of the spots on the right hip. Erythema noted to skin but some of that cleaned off with cleaning of the dried serosanguineous fluid drainage from the skin) Focused Exam Lactate Level 06/23/22 14:20: Lactic Acid Level 1.50 Lactic Acid Level Laboratory Tests Test 06/23/22 14:20 Lactic Acid Level 1.50 MMOL/L (0.50-2.00) Progress/Results/Core Measures Suspected Sepsis SIRS Temperature: Pulse: 103 Respiratory Rate: 16 Laboratory Tests 06/23/22 14:20: White Blood Count 7.6 Blood Pressure 123 /67 Mean: 85 06/23/22 14:20: Lactic Acid Level 1.50 Laboratory Tests 06/23/22 14:20: Creatinine 0.73, INR Comment 1.9H, Platelet Count 157, Total Bilirubin 5.7H Results/Orders Lab Results Laboratory Tests Test 06/23/22 14:20 06/23/22 15:18 Range/Units White Blood Count 7.6 4.3-11.0 10^3/uL Red Blood Count 2.25 L 4.30-5.52 10^6/uL Hemoglobin 8.0 L 13.3-17.7 g/dL Hematocrit 24 L 40-54 % Mean Corpuscular Volume 107 H 80-99 fL Mean Corpuscular Hemoglobin 36 H 25-34 pg Mean Corpuscular Hemoglobin Concent 33 32-36 g/dL Red Cell Distribution Width 19.5 H 10.0-14.5 % Platelet Count 157 130-400 10^3/uL Mean Platelet Volume 10.5 9.0-12.2 fL Immature Granulocyte % (Auto) 0 % Neutrophils (%) (Auto) 53 42-75 % Lymphocytes (%) (Auto) 35 12-44 % Monocytes (%) (Auto) 10 0-12 % Eosinophils (%) (Auto) 1 0-10 % Basophils (%) (Auto) 1 0-10 % Neutrophils # (Auto) 4.1 1.8-7.8 10^3/uL Lymphocytes # (Auto) 2.6 1.0-4.0 10^3/uL Monocytes # (Auto) 0.7 0.0-1.0 10^3/uL Eosinophils # (Auto) 0.1 0.0-0.3 10^3/uL Basophils # (Auto) 0.1 0.0-0.1 10^3/uL Immature Granulocyte # (Auto) 0.0 0.0-0.1 10^3/uL Prothrombin Time 21.5 H 12.2-14.7 SEC INR Comment 1.9 H 0.8-1.4 Activated Partial Thromboplast Time 42 H 24-35 SEC Sodium Level 134 L 135-145 MMOL/L Potassium Level 3.4 L 3.6-5.0 MMOL/L Chloride Level 104 98-107 MMOL/L Carbon Dioxide Level 22 21-32 MMOL/L Anion Gap 8 5-14 MMOL/L Blood Urea Nitrogen 3 L 7-18 MG/DL Creatinine 0.73 0.60-1.30 MG/DL Estimat Glomerular Filtration Rate 126 BUN/Creatinine Ratio 4 Glucose Level 109 H 70-105 MG/DL Lactic Acid Level 1.50 0.50-2.00 MMOL/L Calcium Level 7.9 L 8.5-10.1 MG/DL Corrected Calcium 9.1 8.5-10.1 MG/DL Magnesium Level 1.7 1.6-2.4 MG/DL Total Bilirubin 5.7 H 0.1-1.0 MG/DL Aspartate Amino Transf (AST/SGOT) 120 H 5-34 U/L Alanine Aminotransferase (ALT/SGPT) 49 0-55 U/L Alkaline Phosphatase 70 40-136 U/L Ammonia 46 H 11-32 UMOL/L C-Reactive Protein High Sensitivity 1.26 H 0.00-0.50 MG/DL Total Protein 6.5 6.4-8.2 GM/DL Albumin 2.5 L 3.2-4.5 GM/DL Lipase 32 8-78 U/L Serum Alcohol < 10 <10 MG/DL Urine Color YELLOW Urine Clarity SL CLOUDY Urine pH 6.5 5-9 Urine Specific [place] <=1.005 1.016-1.022 Urine Protein NEGATIVE NEGATIVE Urine Glucose (UA) NEGATIVE NEGATIVE Urine Ketones NEGATIVE NEGATIVE Urine Nitrite NEGATIVE NEGATIVE Urine Bilirubin NEGATIVE NEGATIVE Urine Urobilinogen 4.0 < = 1.0 MG/DL Urine Leukocyte Esterase NEGATIVE NEGATIVE Urine RBC (Auto) NEGATIVE NEGATIVE Urine RBC NONE /HPF Urine WBC NONE /HPF Urine Squamous Epithelial Cells RARE /HPF Urine Crystals NONE /LPF Urine Bacteria TRACE /HPF Urine Casts NONE /LPF Urine Mucus NEGATIVE /LPF Urine Culture Indicated NO My Orders Orders - JOANIE POPE MD Cbc With Automated Diff (06/23/22 14:34) Comprehensive Metabolic Panel (06/23/22 14:34) Blood Culture (06/23/22 14:34) Sputum Culture (06/23/22 14:34) Urinalysis (06/23/22 14:34) Urine Culture (06/23/22 14:34) Protime With Inr (06/23/22 14:34) Partial Thromboplastin Time (06/23/22 14:34) Chest 1 View, Ap/Pa Only (06/23/22 14:34) Ed Iv/Invasive Line Start (06/23/22 14:34) Vital Signs Adult Sepsis Patie Q15M (06/23/22 14:34) O2 (06/23/22 14:34) Remove Rings In Anticipation O (06/23/22 14:34) Wound Culture (06/23/22 14:34) Lactic Acid Analyzer (06/23/22 14:34) Ammonia (06/23/22 14:34) Hs C Reactive Protein (06/23/22 14:34) Lipase (06/23/22 14:34) Magnesium (06/23/22 14:34) Morphine Injection (Morphine Injection (06/23/22 14:45) Ct Abdomen/Pelvis W (06/23/22 15:10) Ns Iv 500 Ml (Sodium Chloride 0.9%) (06/23/22 15:15) Iohexol Injection (Omnipaque 350 Mg/Ml 1 (06/23/22 15:30) Ns (Ivpb) (Sodium Chloride 0.9% Ivpb Bag (06/23/22 15:30) Alcohol (06/23/22 16:04) Morphine Injection (Morphine Injection (06/23/22 17:30) Medications Given in ED Current Medications Medications Dose Ordered Sig/Stoney Route Start Time Stop Time Status Last Admin Dose Admin Iohexol 100 ml ONCE ONCE IV 06/23/22 15:30 06/23/22 15:31 DC 06/23/22 16:14 80 ML Morphine Sulfate 4 mg ONCE ONCE IVP 06/23/22 14:45 06/23/22 14:46 DC 06/23/22 15:11 4 MG Morphine Sulfate 4 mg ONCE ONCE IVP 06/23/22 17:30 06/23/22 17:31 DC 06/23/22 17:22 4 MG Sodium Chloride 100 ml ONCE ONCE IV 06/23/22 15:30 06/23/22 15:31 DC 06/23/22 16:14 80 ML Sodium Chloride 500 ml @ 0 mls/hr Q0M ONCE IV 06/23/22 15:15 06/23/22 15:16 DC 06/23/22 16:25 1,000 MLS/HR Vital Signs/I&O 06/23/22 06/23/22 13:50 17:22 Temp 35.8 35.8 Pulse 103 Resp 16 B/P (MAP) 123/67 (85) Pulse Ox 93 O2 Delivery Room Air Capillary Refill : Less Than 3 Seconds Blood Pressure Mean: 85 Progress Note : Progress Note Seen and evaluated. IV, labs, UA, blood cultures and lactic acid ordered. Labs include CBC, CMP, ammonia level. We will check UA and urine culture if needed. Chest x-ray ordered. Monitor patient. Differential diagnosis includes exacerbation of liver failure, abdominal ascites, pancreatitis, electrolyte abnormality, other intra-abdominal pathology Morphine 4 mg IV for pain. 1533: Labs reviewed. Patient has normal creatinine (grossly elevated total bilirubin although less than previous. Lipase is negative. CMP does show slightly low sodium potassium normal creatinine and low BUN. Glucose normal. Remainder of LFTs show slightly elevated AST at 120 with normal ALT. CRP thank you is slightly elevated at 1.26. Ammonia level is slightly elevated at 46. Albumin level is slightly low at 2.5. The hemoglobin of 8.0 is much better than his hemoglobin which was in the 6s on the last visit. Lactic acid and symptoms negative at 1.5. Chest x-ray shows left basilar atelectasis versus infiltrate on my interpretation. Pending radiology report. Monitor patient. 1603: UA resulted and shows elevated urobilinogen. 1640: CT abdomen pelvis shows bilateral pleural effusions abdominal ascites on my interpretation. Pending radiology report. 165, radiology report reviewed. Patient is complaining of pain. 181: I have repeated the morphine 4 mg IV. I have reviewed all findings with the patient and family. Patient's mother is here now. I did discuss the case with Dr. Hernandez, on-call hospitalist. We were trying to determine best fit for outpatient or inpatient given his current disease and findings and for safety for the patient. He does have GI appointment tomorrow and we would really like him to be able to make that. I think he is safe to do that as his liver function appears to be slightly improved with improved hemoglobin over the last week. Dr. Hernandez agrees. I will write for a very limited amount of oxycodone for pain control given his GI distress and he will follow-up with the GI doctor tomorrow as scheduled. This was discussed with the patient and his mother. He is staying with his mother and grandmother and they are both watching over him very closely. He will not self administer meds for safety. They all agree with this. Discharged home with return precautions. Patient and family verbalized understanding of instructions and agreement with plan. Diagnostic Imaging Diagonstic Imaging: Xray Plain Films/CT/US/NM/MRI: chest Comments [facility], [place] NAME: DIONNE NORMAN MED REC#: [id number] PT STATUS: REG ER : 1990 PHYSICIAN: JOANIE POPE MD ADMIT DATE: 06/23/22/ER Signed Date of Exam:06/23/22 CHEST 1 VIEW, AP/PA ONLY EXAMINATION: Chest 1 view HISTORY: Liver failure. Abdominal pain. COMPARISON: 06/15/2022. FINDINGS: Patchy opacities are seen in the perihilar regions and lung bases, left greater than right. No large pleural effusion or pneumothorax. The cardiac silhouette is stable. IMPRESSION: 1. Patchy opacities in the perihilar and basilar regions, which may represent atelectasis, infection, and/or edema. Dictated by: Dictated on workstation # [id number] Dict: 06/23/22 1515 Trans: 06/23/22 1522 [id number] Interpreted by: SALINA MARCIAL DO Electronically signed by: SALINA MARCIAL DO 06/23/22 1522 Diagonstic Imaging: CT Plain Films/CT/US/NM/MRI: abdomen, pelvis Comments [facility] [place] NAME: DIONNE NORMAN [facility] REC#: [id number] PT STATUS: REG ER : 1990 PHYSICIAN: JOANIE POPE MD ADMIT DATE: 06/23/22/ER Draft Date of Exam:06/23/22 CT ABDOMEN/PELVIS W PROCEDURE: CT abdomen and pelvis with contrast. TECHNIQUE: Multiple contiguous axial images were obtained through the abdomen and pelvis after administration of intravenous contrast. Auto Exposure Controls were utilized during the CT exam to meet ALARA standards for radiation dose reduction. All CT scans use one or more of the following dose optimizing techniques: automated exposure control, MA and/or KvP adjustment based on patient size and exam type or iterative reconstruction. INDICATION: Left upper quadrant abdominal pain, history of liver failure. COMPARISON: 08/16/2021. FINDINGS: There are moderate bilateral pleural effusions with associated atelectasis. The heart is normal in size. There is no pericardial effusion. The liver demonstrates no focal lesion. There is no biliary dilatation. No abnormal enhancement is appreciated. There is mild nonspecific thickening of the gallbladder wall. The spleen is mildly large at 12.7 cm in length. The pancreas appears atrophic. There are calcifications in the pancreas which could be from chronic pancreatitis. There is no ductal dilatation. The adrenal glands appear normal. The kidneys demonstrate normal enhancement with no hydronephrosis or focal mass. Multiple splenic varices are noted. The bowel loops are nondistended without obstruction. There is wall thickening of the stomach and proximal small bowel. The appendix is not seen and no secondary finding of appendicitis is identified. There is moderate stool in the distal colon. There is a small amount of free fluid in the abdomen and pelvis. No free air is seen. No acute osseous abnormality is seen. IMPRESSION: 1. Mild bowel wall thickening, most likely reactive to the ascites or possibly an enteritis. There is no obstruction. 2. Small amount of ascites. Moderate bilateral pleural effusions. 3. Splenomegaly with splenic varices. 4. Atrophic pancreas with calcifications, may be due to a chronic pancreatitis. No ductal dilatation. Dictated on workstation # [id number] Dict: 06/23/22 1621 Trans: 06/23/22 1630 [id number] Interpreted by: ARA CHIN MD Electronically signed by: Departure Impression Primary Impression: Left sided abdominal pain Additional Impressions: Ascites Qualified Codes: K70.31 - Alcoholic cirrhosis of liver with ascites Liver failure Qualified Codes: K72.00 - Acute and subacute hepatic failure without coma Disposition: HOME, SELF-CARE Condition: Stable Departure-Patient Inst. Decision time for Depature: 18:14 Referrals: CANELO CUADRA [facility]ING MACHINE OPERATOR (PCP/Family) Primary Care Physician Patient Instructions: Acute Liver Failure, Abdominal Pain, Adult ED, Fluid in the Belly (Ascites) Add. Discharge Instructions: All discharge instructions reviewed with patient and/or family. Voiced understanding. Keep appointment with GI doctor as scheduled tomorrow. Take medications as directed. Your first dose of the prescribed pain medicine would not be due until 10 PM tonight. Limit doses to only if needed. Continue withdraw medications as prescribed. Return for worse pain, fever, vomiting, weakness, b reathing problems or other concerns as needed. Continue to refrain from alcohol use. Clear a light diet for the next several days and then as tolerated. It is important that you keep nutrition going including protein and you can consider supplements such as Ensure shakes or similar. Scripts Oxycodone HCl (Oxycodone HCl) 5 Mg Tablet 5 MG PO Q6H PRN for PAIN, #4 TAB 0 Refills Prov: JOANIE POPE MD 06/23/22 JOANIE POPE MD June 23, 2022 14:37
[2022-06-23] MEDS ORDERED: morphine INJ 10 MG/ML 1ML (SYR OR VIAL) IVP ONE ×2 (14:45→17:30)
[2022-06-23 14:48] LABS: BASOPHILS # (AUTO) 0.1 10^3/uL (0.0-0.1); BASOPHILS % (AUTO) 1 % (0-10); EOSINOPHILS # (AUTO) 0.1 10^3/uL (0.0-0.3); EOSINOPHILS % (AUTO) 1 % (0-10); HEMATOCRIT 24 % (40-54); LYMPHOCYTES # (AUTO) 2.6 10^3/uL (1.0-4.0); LYMPHOCYTES % (AUTO) 35 % (12-44); MEAN CORPUSCULAR HEMOGLOBIN 36 pg (25-34); MEAN CORPUSCULAR HGB CONC 33 g/dL (32-36); MEAN CORPUSCULAR VOLUME 107 fL (80-99); MEAN PLATELET VOLUME 10.5 fL (9.0-12.2); MONOCYTES # (AUTO) 0.7 10^3/uL (0.0-1.0); MONOCYTES % (AUTO) 10 % (0-12); NEUTROPHILS # (AUTO) 4.1 10^3/uL (1.8-7.8); NEUTROPHILS % (AUTO) 53 % (42-75); PLATELET COUNT 157 10^3/uL (130-400); WHITE BLOOD COUNT 7.6 10^3/uL (4.3-11.0)
[2022-06-23 14:55] LABS: ALBUMIN 2.5 GM/DL (3.2-4.5); POTASSIUM 3.4 MMOL/L (3.6-5.0)
[2022-06-23 14:56] LABS: CALCIUM 7.9 MG/DL (8.5-10.1)
[2022-06-23 14:57] LABS: INR 1.9 (0.8-1.4); PROTHROMBIN TIME PATIENT 21.5 SEC (12.2-14.7); TOTAL PROTEIN 6.5 GM/DL (6.4-8.2)
[2022-06-23 14:59] LABS: BILIRUBIN,TOTAL 5.7 MG/DL (0.1-1.0)
[2022-06-23 15:01] LABS: CREATININE SERUM 0.73 MG/DL (0.60-1.30)
[2022-06-23 15:04] LABS: MAGNESIUM 1.7 MG/DL (1.6-2.4)
[2022-06-23] MEDS ORDERED: NS IV 500 ML 500 ML IV ONE (15:15)
--- NOTE | 2022-06-23 15:18 | Diagnostic Imaging Report ---
EXAMINATION: Chest 1 view HISTORY: Liver failure. Abdominal pain. COMPARISON: 06/15/2022. FINDINGS: Patchy opacities are seen in the perihilar regions and lung bases, left greater than right. No large pleural effusion or pneumothorax. The cardiac silhouette is stable. IMPRESSION: 1. Patchy opacities in the perihilar and basilar regions, which may represent atelectasis, infection, and/or edema. Dictated by: Dictated on workstation # [id number]
[2022-06-23 15:26] LABS: BILIRUBIN,URINE NEGATIVE (NEGATIVE); CLARITY,URINE SL CLOUDY; COLOR,URINE YELLOW; GLUCOSE, URINE (UA) NEGATIVE (NEGATIVE); KETONES,URINE NEGATIVE (NEGATIVE); LEUKOCYTE ESTERASE ,URINE NEGATIVE (NEGATIVE); NITRITE,URINE NEGATIVE (NEGATIVE); PH,URINE 6.5 (5-9); PROTEIN,URINE NEGATIVE (NEGATIVE)
[2022-06-23] MEDS ORDERED: IOHEXOL 350 MG/ML 100 ML (OMNIPAQUE 350) VIAL IV ONE (15:30)
[2022-06-23] MEDS ORDERED: NS 100 ML (IVPB) BAG IV ONE (15:30)
[2022-06-23 15:34] LABS: BACTERIA,URINE TRACE /HPF; SQUAMOUS EPITHELIAL CELL,UR RARE /HPF
--- NOTE | 2022-06-23 16:30 | Diagnostic Imaging Report ---
PROCEDURE: CT abdomen and pelvis with contrast. TECHNIQUE: Multiple contiguous axial images were obtained through the abdomen and pelvis after administration of intravenous contrast. Auto Exposure Controls were utilized during the CT exam to meet ALARA standards for radiation dose reduction. All CT scans use one or more of the following dose optimizing techniques: automated exposure control, MA and/or KvP adjustment based on patient size and exam type or iterative reconstruction. INDICATION: Left upper quadrant abdominal pain, history of liver failure. COMPARISON: 08/16/2021. FINDINGS: There are moderate bilateral pleural effusions with associated atelectasis. The heart is normal in size. There is no pericardial effusion. The liver demonstrates no focal lesion. There is no biliary dilatation. No abnormal enhancement is appreciated. There is mild nonspecific thickening of the gallbladder wall. The spleen is mildly large at 12.7 cm in length. The pancreas appears atrophic. There are calcifications in the pancreas which could be from chronic pancreatitis. There is no ductal dilatation. The adrenal glands appear normal. The kidneys demonstrate normal enhancement with no hydronephrosis or focal mass. Multiple splenic varices are noted. The bowel loops are nondistended without obstruction. There is wall thickening of the stomach and proximal small bowel. The appendix is not seen and no secondary finding of appendicitis is identified. There is moderate stool in the distal colon. There is a small amount of free fluid in the abdomen and pelvis. No free air is seen. No acute osseous abnormality is seen. IMPRESSION: 1. Mild bowel wall thickening, most likely reactive to the ascites or possibly an enteritis. There is no obstruction. 2. Small amount of ascites. Moderate bilateral pleural effusions. 3. Splenomegaly with splenic varices. 4. Atrophic pancreas with calcifications, may be due to a chronic pancreatitis. No ductal dilatation. Dictated by: Dictated on workstation # [id number]
[2022-06-23] MEDS ORDERED: OXYC5TAB PO (18:20)
[2022-06-23 18:26] VITALS: BP 108/66
== END 2022-06-23 18:26 | disposition home or self-care (01) ==
LOC: EDUNIT# 13:38 → ER 13:41
DX: K72.90 Hepatic failure, unspecified without coma (principal); R18.8 Other ascites; J91.8 Pleural effusion in other conditions classified elsewhere; J98.11 Atelectasis; E80.7 Disorder of bilirubin metabolism, unspecified; Z88.5 Allergy status to narcotic agent; Z90.49 Acquired absence of other specified parts of digestive tract
CPT/HCPCS: 71045; 74177; 80053; 81000; 82140; 83605; 83690; 83735; 85025; 85610; 85730; 86141; 87040; 87070; 87088; 87205; 99284; G0480; 36415; 80320; 87077

== ENCOUNTER 2022-06-28 15:59 | Emergency (ER) | payer SELFPAY ==
[~2022-06-28] VITALS: Ht 180 cm; Wt 81.6 kg
[~2022-06-28 15:59] MED LIST changes: +CEPH500T PO; +OXYC5TAB PO
[2022-06-28] MEDS ORDERED: ONDANSETRON 4 MG/2 ML (SDV) Z0FRAN IVP ONE (16:30)
--- NOTE | 2022-06-28 16:32 | ED Abdominal Pain ---
General Chief Complaint: Abdominal/GI Problems Stated Complaint: LIVER FAILURE Nursing Triage Note: PT AMBULATORY TO ER. PT REPORTS CURRENTLY UNDERGOING TREATMENT FOR PARTIAL LIVER FAILURE. PT REPORTS HAD A BOWEL MOVEMENT THIS AFTERNOON AFTER TAKING PREPARATION H AND THEN BEGAN TO EXPERIENCE RUQ ABD PAIN, WORSE WITH ANY MOVEMENT. PT SKIN IS JAUNDICE IN TRIAGE, ABD DISTENDED. Source of Information: Patient Exam Limitations: No Limitations History of Present Illness Date Seen by Provider: June 28, 2022 Time Seen by Provider: 16:18 Initial Comments 31-year-old male presents to the ED with complaints of right upper quadrant pain starting approximately 30 to 40 minutes prior to arrival. He states that he took a suppository to have a bowel movement prior to this, states he was able to have a bowel movement, then shortly after he developed right upper quadrant abdominal pain. He reports his stools were hard, so he used a suppository. He has a history of liver failure due to alcoholism. He has also had pancreatitis in the past. He denies fevers, chest pain, shortness of air. He was vomiting upon arrival. Allergies and Home Medications Allergies Coded Allergies: acetaminophen (Verified Allergy, Unknown, 08/08/20) codeine (Verified Allergy, Unknown, 08/08/20) Patient Home Medication List Home Medication List Reviewed: Yes Cephalexin (Cephalexin) 500 Mg Tablet, 500 MG PO QID Prescribed by: JENNIFER MAY on 06/28/22 0318 Meloxicam (Meloxicam) 15 Mg Tablet, 15 MG PO DAILY PRN for PAIN-BREAKTHROUGH, (Reported) Entered as Reported by: JOEY RIDDLE on 08/10/20 0818 Metoclopramide HCl (Reglan) 10 Mg Tablet, 10 MG PO Q6H Prescribed by: BULMARO JONES on 08/17/2129 Ondansetron (Ondansetron Odt) 8 Mg Tab.rapdis, 8 MG PO Q6H Prescribed by: BULMARO JONES on 08/17/2129 Oxycodone HCl (Oxycodone HCl) 5 Mg Tablet, 5 MG PO Q6H PRN for PAIN Prescribed by: JOANIE POPE on 06/23/22 182 Pantoprazole Sodium (Protonix) 40 Mg Tablet.dr, 40 MG PO DAILY Prescribed by: BULMARO JONES on 7/5/22 0030 Sucralfate (Carafate) 1 Gram Tablet, 1 GM PO QID Prescribed by: BULMARO JONES on 08/17/21 0030 Tramadol HCl (Tramadol HCl) 50 Mg Tablet, 50 MG PO Q4H PRN for PAIN-MODERATE (5- 7) Prescribed by: ARYA MCARTHUR on 07/13/21 1435 Review of Systems Review of Systems Constitutional: see HPI Past Ibzrwwh-Lzsvcc-Tgjebn Hx Patient Social History Tobacco Use?: No Use of E-Cig and/or Vaping dev: No Substance use?: Yes Substance type: Marijuana Alcohol Use?: Yes Pt feels they are or have been: No Immunizations Up To Date Tetanus Booster (TDap): Less than 5yrs PED Vaccines UTD: Yes First/Initial COVID19 Vaccinat: RECEIVED, UNK WHEN Second COVID19 Vaccination Emeka: RECEIVED, UNK WHEN Third COVID19 Vaccination Date: UNKNOWN COVID19 Vaccine Casting Sorter: [place] Seasonal Allergies Seasonal Allergies: No Past Medical History Surgery/Hospitalization HX: PMH;HX PANCREATITIS AND ANXIETY. SURGERY;TONSILECTOMY. Surgeries: Yes (abdominal drains for pancreatic process) Abdominal, Appendectomy, Tonsillectomy Respiratory: Yes Asthma Cardiac: Yes Hypertension Neurological: No Reproductive Disorders: No Sexually Transmitted Disease: No Genitourinary: No Gastrointestinal: Yes Pancreatitis Musculoskeletal: No Endocrine: No HEENT: No Cancer: No Psychosocial: Yes (POLYSUBSTANCE ABUSE--DRUGS + ALCOHOL, alcohol dependence) Anxiety, Depression Integumentary: No Blood Disorders: No Family Medical History Hypertension Physical Exam Vital Signs Vital Signs - First Documented 06/28/22 16:05 Temp 36.1 Pulse 103 Resp 18 B/P (MAP) 149/92 (111) Pulse Ox 98 O2 Delivery Room Air Capillary Refill : Height/Weight/BMI Height: 5'11" Weight: 165lbs. oz. 74.926193lo; 25.00 BMI Method:Stated General Appearance: WD/WN, no apparent distress Neck: supple, normal inspection Respiratory: lungs clear, normal breath sounds, no respiratory distress, no accessory muscle use Cardiovascular: regular rate, rhythm Gastrointestinal: normal bowel sounds, soft, tenderness (Mid epigastric and right upper quadrant) Extremities: normal range of motion, normal inspection Neurologic/Psychiatric: alert, normal mood/affect Skin: warm/dry, jaundice Focused Exam Lactate Level 06/28/22 16:41: Lactic Acid Level 4.35*H 06/28/22 18:40: Lactic Acid Level 4.42*H Lactic Acid Level Laboratory Tests Test 06/28/22 16:41 06/28/22 18:40 Lactic Acid Level 4.35 MMOL/L (0.50-2.00) *H 4.42 MMOL/L (0.50-2.00) *H Progress/Results/Core Measures Results/Orders Lab Results Laboratory Tests Test 06/28/22 16:35 06/28/22 16:41 06/28/22 17:11 06/28/22 18:40 Range/Units Prothrombin Time 23.3 H 12.2-14.7 SEC INR Comment 2.1 H 0.8-1.4 Activated Partial Thromboplast Time 43 H 24-35 SEC White Blood Count 14.1 H 4.3-11.0 10^3/uL Red Blood Count 2.58 L 4.30-5.52 10^6/uL Hemoglobin 8.9 L 13.3-17.7 g/dL Hematocrit 28 L 40-54 % Mean Corpuscular Volume 107 H 80-99 fL Mean Corpuscular Hemoglobin 35 H 25-34 pg Mean Corpuscular Hemoglobin Concent 32 32-36 g/dL Red Cell Distribution Width 17.7 H 10.0-14.5 % Platelet Count 175 130-400 10^3/uL Mean Platelet Volume 10.7 9.0-12.2 fL Immature Granulocyte % (Auto) 1 % Neutrophils (%) (Auto) 53 42-75 % Lymphocytes (%) (Auto) 37 12-44 % Monocytes (%) (Auto) 6 0-12 % Eosinophils (%) (Auto) 2 0-10 % Basophils (%) (Auto) 1 0-10 % Neutrophils # (Auto) 7.5 1.8-7.8 10^3/uL Lymphocytes # (Auto) 5.2 H 1.0-4.0 10^3/uL Monocytes # (Auto) 0.9 0.0-1.0 10^3/uL Eosinophils # (Auto) 0.3 0.0-0.3 10^3/uL Basophils # (Auto) 0.1 0.0-0.1 10^3/uL Immature Granulocyte # (Auto) 0.1 0.0-0.1 10^3/uL Neutrophils % (Manual) 28 % Lymphocytes % (Manual) 66 % Monocytes % (Manual) 4 % Eosinophils % (Manual) 1 % Metamyelocytes % 1 % Smudge Cells MARKED Platelet Estimate NORMAL Poikilocytosis MARKED Anisocytosis SLIGHT Macrocytosis SLIGHT Grace Cells MARKED Sodium Level 136 135-145 MMOL/L Potassium Level 3.4 L 3.6-5.0 MMOL/L Chloride Level 106 98-107 MMOL/L Carbon Dioxide Level 18 L 21-32 MMOL/L Anion Gap 12 5-14 MMOL/L Blood Urea Nitrogen 3 L 7-18 MG/DL Creatinine 0.73 0.60-1.30 MG/DL Estimat Glomerular Filtration Rate 126 BUN/Creatinine Ratio 4 Glucose Level 130 H 70-105 MG/DL Lactic Acid Level 4.35 *H 4.42 *H 0.50-2.00 MMOL/L Calcium Level 8.4 L 8.5-10.1 MG/DL Corrected Calcium 9.3 8.5-10.1 MG/DL Total Bilirubin 6.2 H 0.1-1.0 MG/DL Aspartate Amino Transf (AST/SGOT) 102 H 5-34 U/L Alanine Aminotransferase (ALT/SGPT) 51 0-55 U/L Alkaline Phosphatase 87 40-136 U/L Ammonia 44 H 11-32 UMOL/L C-Reactive Protein High Sensitivity 0.55 H 0.00-0.50 MG/DL Total Protein 7.2 6.4-8.2 GM/DL Albumin 2.9 L 3.2-4.5 GM/DL Amylase Level 47 25-125 U/L Lipase 51 8-78 U/L Serum Alcohol < 10 <10 MG/DL Urine Color ORANGE Urine Clarity CLOUDY Urine pH 6.0 5-9 Urine Specific [place] 1.015 L 1.016-1.022 Urine Protein NEGATIVE NEGATIVE Urine Glucose (UA) NEGATIVE NEGATIVE Urine Ketones NEGATIVE NEGATIVE Urine Nitrite NEGATIVE NEGATIVE Urine Bilirubin 2+ H NEGATIVE Urine Urobilinogen 2.0 < = 1.0 MG/DL Urine Leukocyte Esterase NEGATIVE NEGATIVE Urine RBC (Auto) NEGATIVE NEGATIVE Urine RBC RARE /HPF Urine WBC 0-2 /HPF Urine Crystals PRESENT H /LPF Urine Calcium Oxalate Crystals FEW H /LPF Urine Amorphous Sediment LARGE OSCAR URATES H /LPF Urine Bacteria FEW H /HPF Urine Casts PRESENT /LPF Urine Hyaline Casts 2-5 H /LPF Urine Coarse Granular Casts 5-10 H /LPF Urine Mucus NEGATIVE /LPF Urine Culture Indicated YES My Orders Orders - JAMES AU APRN Comprehensive Metabolic Panel (06/28/22 16:17) Lipase (06/28/22 16:17) Amylase (06/28/22 16:17) Ua Culture If Indicated (06/28/22 16:17) Ed Iv/Invasive Line Start (06/28/22 16:17) Cbc With Automated Diff (06/28/22 16:17) Ammonia (06/28/22 16:17) Lactic Acid Analyzer (06/28/22 16:18) Us Abdomen Limited [id number] (06/28/22 16:21) Ondansetron Injection (Zofran Injectio (06/28/22 16:30) Fentanyl Inj (Sublimaze Injection) (06/28/22 16:45) Alcohol (06/28/22 16:40) Fentanyl Inj (Sublimaze Injection) (06/28/22 16:42) Manual Differential (06/28/22 16:41) Blood Culture (06/28/22 17:10) Sputum Culture (06/28/22 17:10) Protime With Inr (06/28/22 17:10) Partial Thromboplastin Time (06/28/22 17:10) Chest 1 View, Ap/Pa Only (06/28/22 17:10) Ns Iv 1000 Ml (Sodium Chloride 0.9%) (06/28/22 17:15) Fentanyl Inj (Sublimaze Injection) (06/28/22 17:15) Promethazine Injection (Phenergan Injec (06/28/22 17:15) Hs C Reactive Protein (06/28/22 17:16) Urine Culture (06/28/22 17:11) Fentanyl Inj (Sublimaze Injection) (06/28/22 20:15) Medications Given in ED Current Medications Medications Dose Ordered Sig/Stoney Route Start Time Stop Time Status Last Admin Dose Admin Fentanyl Citrate 50 mcg ONCE ONCE IVP 06/28/22 16:45 06/28/22 16:46 DC 06/28/22 16:43 50 MCG Fentanyl Citrate 50 mcg ONCE ONCE IVP 06/28/22 20:15 06/28/22 20:16 DC 06/28/22 20:09 50 MCG Fentanyl Citrate 75 mcg ONCE ONCE IVP 06/28/22 17:15 06/28/22 17:16 DC 06/28/22 17:19 75 MCG Ondansetron HCl 4 mg ONCE ONCE IVP 06/28/22 16:30 06/28/22 16:31 DC 06/28/22 16:43 4 MG Promethazine HCl 25 mg ONCE ONCE IVP 06/28/22 17:15 06/28/22 17:16 DC 06/28/22 17:19 25 MG Sodium Chloride 2,448 ml @ 2,448 mls/hr ONCE ONCE IV 06/28/22 17:15 06/28/22 18:14 DC 06/28/22 17:25 1,000 MLS/HR Vital Signs/I&O 06/28/22 06/28/22 06/28/22 16:05 16:43 17:19 Temp 36.1 36.1 36.1 Pulse 103 Resp 18 B/P (MAP) 149/92 (111) Pulse Ox 98 O2 Delivery Room Air Blood Pressure Mean: 111 Progress Progress Note : Progress Note Patient seen and evaluated, resting in bed, no acute distress. Based on exam and symptoms, work-up initiated including CBC, CMP, amylase, lipase, UA. Abdominal ultrasound ordered. Zofran ordered for nausea and vomiting. 1712 Labs reviewed. CBC shows elevated WBC is 14.1, decreased hemoglobin 8.9, decrease hematocrit 28. Hematocrit and hemoglobin are improved from previous labs. No elevated neutrophils. Lymphocytes number elevated 5.2. CMP shows slightly decreased potassium 3.4, slightly decreased CO2 18. AST elevated 102, ALT normal 51. Ammonia slightly elevated 44. Lactic acid critically elevated at 4.25. Coags show elevated PT 23.3, elevated INR 2.1, elevated APTT 43. Alcohol negative. UA shows 2+ bilirubin, negative for infection. Blood cultur es x2 added on. CRP added. Chest x-ray added. 2015 Labs reviewed. CRP only slightly elevated 0.55. Repeat lactic after 1 L of fluid still elevated 4.42. Patient reports he feels generally better. Still reports a slight pain. Will give another dose of fentanyl and discharge. Patient agreeable to discharge plan. Patient instructed to return if symptoms return. Discharge instructions and return precautions provided. Departure Impression Primary Impression: Abdominal pain Qualified Codes: R10.11 - Right upper quadrant pain Additional Impression: Vomiting Disposition: 01 HOME, SELF-CARE Condition: Stable Departure-Patient Inst. Referrals: CANELO CUADRA APRN (PCP/Family) Primary Care Physician Patient Instructions: Severe Abdominal Pain, Adult (DC) Add. Discharge Instructions: Follow-up with your GI specialist as well as your primary care provider. Return if your symptoms get worse, you have severe abdominal pain, recurrent vomiting, or any other new, concerning, or worsening symptoms. All discharge instructions reviewed with patient and/or family. Voiced understanding. JAMES AU APRN June 28, 2022 16:32
[2022-06-28] MEDS ORDERED: fentaNYL INJ 100 MCG/2 ML AMP ONE (16:42)
[2022-06-28] MEDS ORDERED: fentaNYL INJ 100 MCG/2 ML AMP IVP ONE ×3 (16:45→20:15)
[2022-06-28 16:53] LABS: BASOPHILS # (AUTO) 0.1 10^3/uL (0.0-0.1); BASOPHILS % (AUTO) 1 % (0-10); EOSINOPHILS # (AUTO) 0.3 10^3/uL (0.0-0.3); EOSINOPHILS % (AUTO) 2 % (0-10); HEMATOCRIT 28 % (40-54); HEMOGLOBIN 8.9 g/dL (13.3-17.7); LYMPHOCYTES # (AUTO) 5.2 10^3/uL (1.0-4.0); LYMPHOCYTES % (AUTO) 37 % (12-44); MEAN CORPUSCULAR HEMOGLOBIN 35 pg (25-34); MEAN CORPUSCULAR HGB CONC 32 g/dL (32-36); MEAN CORPUSCULAR VOLUME 107 fL (80-99); MEAN PLATELET VOLUME 10.7 fL (9.0-12.2); MONOCYTES # (AUTO) 0.9 10^3/uL (0.0-1.0); MONOCYTES % (AUTO) 6 % (0-12); NEUTROPHILS # (AUTO) 7.5 10^3/uL (1.8-7.8); NEUTROPHILS % (AUTO) 53 % (42-75); PLATELET COUNT 175 10^3/uL (130-400); WHITE BLOOD COUNT 14.1 10^3/uL (4.3-11.0)
[2022-06-28 17:03] LABS: AMMONIA 44 UMOL/L (11-32)
[2022-06-28 17:04] LABS: ALBUMIN 2.9 GM/DL (3.2-4.5)
[2022-06-28 17:05] LABS: POTASSIUM 3.4 MMOL/L (3.6-5.0)
[2022-06-28 17:06] LABS: CALCIUM 8.4 MG/DL (8.5-10.1)
[2022-06-28 17:07] LABS: TOTAL PROTEIN 7.2 GM/DL (6.4-8.2)
[2022-06-28 17:09] LABS: BILIRUBIN,TOTAL 6.2 MG/DL (0.1-1.0)
[2022-06-28 17:10] LABS: CREATININE SERUM 0.73 MG/DL (0.60-1.30)
[2022-06-28 17:14] LABS: CLARITY,URINE CLOUDY; COLOR,URINE ORANGE; GLUCOSE, URINE (UA) NEGATIVE (NEGATIVE); KETONES,URINE NEGATIVE (NEGATIVE); LEUKOCYTE ESTERASE ,URINE NEGATIVE (NEGATIVE); NITRITE,URINE NEGATIVE (NEGATIVE); PROTEIN,URINE NEGATIVE (NEGATIVE)
[2022-06-28] MEDS ORDERED: PROMETHAZINE INJ 25 MG/ML (PHENERGAN) AMP IVP ONE (17:15)
[2022-06-28] MEDS ORDERED: NS IV ONE (17:15)
--- NOTE | 2022-06-28 17:20 | Diagnostic Imaging Report ---
EXAMINATION: US Abdomen limited. TECHNIQUE: Multiple real-time grayscale images were obtained over the right upper quadrant in various projections. REASON FOR EXAM: Right upper quadrant pain. Distention. COMPARISON: 06/23/2022. 06/15/2022. FINDINGS: The liver is normal in size and shape. The liver echogenicity is increased. There are no focal lesions. No intrahepatic biliary dilatation is present. The common bile duct is obscured due to overlapping bowel gas. The main portal vein is hepatopedal. Trace ascites in the upper abdomen. Recannulated umbilical vein is seen. There is upper limits of normal gallbladder wall thickening measuring 0.3 cm. There is no evidence of cholelithiasis or pericholecystic fluid. The dense material seen on CT is not well characterized on this exam. Sonographic Ford's sign is negative. The pancreas and aorta are obscured due to overlapping bowel gas. Images of the IVC are unremarkable. The right kidney measures approximately 10.0 cm in length and has a normal appearance. IMPRESSION: 1. Hepatic steatosis. No focal hepatic lesions. 2. Stigmata of portal hypertension with trace ascites and recannulated umbilical vein. 3. Upper limits of normal gallbladder wall thickness. No gallstones are identified. Findings may be reactive to the above-mentioned portal hypertension. Dictated by: Dictated on workstation # [id number]
[2022-06-28 17:25] LABS: INR 2.1 (0.8-1.4); PROTHROMBIN TIME PATIENT 23.3 SEC (12.2-14.7)
--- NOTE | 2022-06-28 17:34 | Diagnostic Imaging Report ---
EXAMINATION: Chest 1 view HISTORY: Right upper quadrant pain. COMPARISON: 06/23/2022. FINDINGS: The lung volumes are normal. There is improved aeration in the lungs. No focal consolidation is seen. No large pleural effusion or pneumothorax is seen. The cardiomediastinal silhouette is stable in size. No acute osseous abnormality is seen. IMPRESSION: 1. Improved aeration in the lungs compared to the prior exam. Recommend continued follow-up as indicated. Dictated by: Dictated on workstation # [id number]
[2022-06-28 17:56] LABS: RBC,URINE RARE /HPF; WBC,URINE 0-2 /HPF
[2022-06-28 17:57] LABS: AMORPHOUS SEDIMENT,UR LARGE AMOR URATES /LPF; BACTERIA,URINE FEW /HPF; CALCIUM OXALATE CRYSTALS,UR FEW /LPF
[2022-06-28 17:58] LABS: BILIRUBIN,URINE 2+ (NEGATIVE)
[2022-06-28 19:13] LABS: ANISOCYTOSIS SLIGHT; EOSINOPHILS % (MANUAL) 1 %; LYMPHOCYTES % (MANUAL) 66 %; METAMYELOCYTES % 1 %; MONOCYTES % (MANUAL) 4 %; NEUTROPHILS % (MANUAL) 28 %; PLATELET ESTIMATE NORMAL; POIKILOCYTOSIS MARKED
[2022-06-28 19:14] LABS: BURR CELLS MARKED
[2022-06-28 20:28] VITALS: BP 134/85
== END 2022-06-28 20:28 | disposition home or self-care (01) ==
LOC: EDUNIT# 15:59 → ER 16:01
DX: R10.13 Epigastric pain (principal); R10.11 Right upper quadrant pain; R11.2 Nausea with vomiting, unspecified; Z90.49 Acquired absence of other specified parts of digestive tract; Z87.19 Personal history of other diseases of the digestive system; Z88.5 Allergy status to narcotic agent
CPT/HCPCS: 71045; 76705; 80053; 81000; 82140; 82150; 83605; 83690; 85007; 85027; 85610; 85730; 86141; 87040; 87088; 99284; G0480; 36415; 80320